=== PATIENT | female | born 1935 | race Caucasian/White ===

== ENCOUNTER → 2017-04-09 | Outpatient (CLI) | payer MEDICARE, BC ==
--- NOTE | 2017-04-09 16:46 | MR ---
EXAMINATION TYPE: MR angio head wo con DATE OF EXAM: 04/09/2017 8:16 AM COMPARISON: 09/25/2013 HISTORY: Headaches CONTRAST: None TECHNIQUE: Multiplanar multiecho imaging on a 3.0 Barbie magnet is performed through the [facility]ik of [facility]. 3-D [id number]-ghkxig imaging is performed. Source images are reviewed on the computer in the axi al plane. Reconstructed images rotating on the computer are reviewed. FINDINGS: The internal carotid arteries bifurcate normally into A1 and M1 segments. The A2 segments are normal. Distal middle cerebral artery branches are normal. The proximal A1 segments may have some mild undulation. Consider some vasculitis. Anterior communicating artery is patent. The right posterior communicating artery is absent. The left posterior communicating artery is absent. Vertebrobasilar arteries within the [id number] are normal. Posterior cerebral vasculature is norm al. No suspicious aneurysm or aneurysmal dilatation is evident. No obstructions are identified. No significant flow-limiting stenosis is evident. IMPRESSIONS: 1. There is some undulation along the first portions of the M1 segments bilaterally. Some vasculitis may be present. This better visualized on Three-D reconstructed images. This is a change from 2012. 2. Remaining portions of the distal middle cerebral artery branches as well as additional intracrania l vascular structures appears normal.
--- NOTE | 2017-04-09 16:50 | MR ---
EXAMINATION TYPE: MR brain wo/w con DATE OF EXAM: 04/09/2017 8:17 AM COMPARISON: 09/25/2013 HISTORY: Headaches CONTRAST: Performed utilizing 10 mL intravenous MultiHance gadolinium contrast. TECHNIQUE: Multiplanar, multiecho imaging on a 3.0 Barbie magnet is performed through the brain. Stud y is performed within 24 hours of arrival to the hospital. The craniovertebral junction is normal. The pituitary is normal. Diffusion-weighted imaging is performed. No abnormal hyperintensity is present to suggest an acute i ntracranial infarct or acute ischemic change. There are scattered punctate areas of hyperintensity on T2 and Inversion Recovery weighted sequences which are non-specific but can be related to microvascular ischemic changes. There is some increased signal adjacent to the left side brainstem cerebellar pontine angle inferior to the internal auditory canal. Series more intermediate signal on T2-weighted sequences. Abnormal enhancement is not identif ied. Finding was present previously and appears stable and may be artifactual Ventricles and sulci are appropriate for the patient age. No abnormal enhancement is evident. IMPRESSIONS: 1. Atrophy with periventricular white matter ischemic changes. 2. No acute intracranial process
== END | disposition home or self-care (01) ==
LOC: RADMRIMAIN 07:26
PROVIDERS: ATTEND Family Medicine
DX: G31.1 Senile degeneration of brain, not elsewhere classified (principal)
CPT/HCPCS: 70544; 70553; A9577

== ENCOUNTER 2017-05-07 09:53 | Day surgery (SDC) | payer MEDICARE, BC ==
[2017-05-03 16:07] VITALS: BMI 18.6
[~2017-05-07 09:53] MED LIST: LACTATED RINGERS 1,000 ML IV SCH
[2017-05-07] MEDS ORDERED: LIDOCAINE 1% 20 ML VIAL (10MG/ML) FOR IV START INTRADERMA ONE (10:00)
[2017-05-07 10:03] VITALS: RESP 16; TEMP 97.3
[2017-05-07 10:22] LABS: INR 1.1 (<1.1); Prothrombin Time 11.5 sec (9.0-12.0)
[2017-05-07] MEDS ORDERED: DEXAMETHASONE SOD PHOS (MDV) 100 MG/10 ML VIAL ONE (10:45)
[2017-05-07] MEDS ORDERED: MIDAZOLAM 2 MG/2 ML VIAL ONE (10:45)
[2017-05-07] MEDS ORDERED: IOHEXOL 180 MG/ML 1 ML ML ONE (10:45)
[2017-05-07] MEDS ORDERED: fentaNYL (PF) 50 MCG/ML 2 ML AMP ONE (10:45)
--- NOTE | 2017-05-07 11:09 | P.PCN ---
Date of Procedure: 05/07/17 Preoperative Diagnosis: Postoperative Diagnosis: Procedure(s) Performed: PREOP DIAGNOSIS: 1- Lumbar postlaminectomy syndrome POSTOP DIAGNOSIS:1- Lumbar postlaminectomy syndrome PROCEDURE: Caudal epidural steroid injection with epidurolysis and epidurogram under fluoroscopic guidance ANESTHESIA: Local with 1% lidocaine 3 ml ; IV sedation with Versed 1 mg and fentanyl 50 g EBL: Minimal. PROCEDURE INDICATION: The patient with post-laminectomy syndrome with low back pain and radiculopathy radiating down in both legs, here for a caudal epidural steroid injection with epidurolysis. PROCEDURE DESCRIPTION: The patient was seen and identified in the preoperative area. Risks, benefits, complications, and alternatives were discussed with the patient. The patient agreed to proceed with the procedure and signed the consent. IV was started, and vital signs were stable. Patient was taken to the OR and time out was completed. The patient was placed in the prone position on procedure table and a pillow was placed under the abdomen to reduce lumbar lordosis. The lumbosacral area was prepped and draped in the usual sterile fashion. Vital signs were closely monitored during the procedure. lateral view and the anterior-posterior plates of the sacrum were identified with infiltration of the area overlying the sacral hiatus with 1% lidocaine .A 17 gauge RK epidural needle was used to advance through the sacral hiatus into the caudal epidural space. Omnipaque 180 dye. 2cc was injected and the position of the needle was verified to be in the midline. A Racz catheter was introduced into the epidural space and was advanced towards the L5-S1 interspace under direct fluoroscopic guidance. Multiple passes were made with the catheter for lysis of epidural adhesions. Kenalog 80 mg with 3ml of preservative free Lidocaine 1% and 5 ml of preservative free normal saline was injected slowly. Additional spread was seen to L4 under fluoroscopy. The needle and the catheter were withdrawn intact. EPIDUROGRAM: Omnipaque 180 mg dye 2 ml was injected with spread of the dye into the caudal epidural space and with spread cutoff at L5 prior to epidurolysis. Post epidurolysis dye 2 ml was injected and spread was seen to L3- 4.There was further spread of the solution together with the dye above the L3 COMPLICATIONS: None. DISPOSITION / PLANS: The patient was placed in a supine position and transferred to the recovery area in a stable condition for observation and was discharged from the recovery room after meeting discharge criteria. Home discharge instructions given to the patient by the staff. The patient was reexamined prior to discharge. The patient will schedule a follow up in the clinic in 2-4 weeks. Implants: Indications for Procedure: Operative Findings: Description of Procedure:
--- NOTE | 2017-05-07 11:27 | FL ---
FLUOROSCOPY 6 seconds of fluoroscopy time were utilized during Pain Injection. 2 images document the procedure.
[2017-05-07 11:36] VITALS: BP 168/79; PULSE 72
[2017-05-07] MEDS ORDERED: IV FLUID CONTINUATION 1,000 ML IV ONE (11:48)
== END 2017-05-07 11:50 | disposition home or self-care (01) ==
LOC: ORPAIN 09:53
PROVIDERS: ATTEND Specialist
DX: M96.1 Postlaminectomy syndrome, not elsewhere classified (principal); M54.5 Low back pain; M54.16 Radiculopathy, lumbar region; I10 Essential (primary) hypertension; I48.91 Unspecified atrial fibrillation
CPT/HCPCS: 85610; 62264; J2250; Q9965; J3010; J1100

== ENCOUNTER 2017-07-04 07:43 | Inpatient (IN) | payer MEDICARE, BC ==
[2017-07-04] MEDS ORDERED: MECLIZINE 25 MG TAB PO STA (08:00)
[2017-07-04] MEDS ORDERED: DIAZEPAM 5 MG/ML 2 ML SYRINGE IVP STA (08:00)
[2017-07-04] MEDS ORDERED: SODIUM CHLORIDE 0.9% 500 ML IV ONE (08:03)
--- NOTE | 2017-07-04 08:03 | ED ---
General Adult HPI - General Chief complaint: Fall Stated complaint: Fall Time Seen by Provider: 07/04/17 07:45 Source: patient, EMS, RN notes reviewed Mode of arrival: EMS Limitations: no limitations - History of Present Illness Initial comments: This is an 81-year-old female who presents to the emergency department complaining of dizziness. Patient states she got up this morning felt real dizzy and fell back onto the bed did not injure herself. Patient states she then attempted again to get up and she was walking close to the wall lost her balance and fell backwards and hit her head on the corner of the wall. Patient states she has a mild headache now. Patient denies losing consciousness patient denies any bleeding. Patient states however she is on Coumadin. Patient denies any neck pain. Patient denies numbness or weakness. Patient denies any chest pain palpitations difficulty breathing or shortness of breath per patient denies any recent fever chills or cough. Patient denies any abdominal pain patient denies nausea vomiting or diarrhea. Patient denies any back pain. Patient denies any upper or lower extremity pain. Patient states she's had similar symptoms in the past but never to this degree. - Related Data Home Medications Medication Instructions Recorded Confirmed Levothyroxine Sodium [Levoxyl] 88 mcg PO DAILY 06/20/16 07/04/17 Warfarin [Coumadin] 5 mg PO SUMOTUTH 05/03/17 07/04/17 Losartan Potassium [Losartan 100 mg PO DAILY 07/04/17 07/04/17 Potassium] Metoprolol Tartrate [Lopressor] 25 mg PO BID 07/04/17 07/04/17 Primidone [Mysoline] 25 mg PO BID 07/04/17 07/04/17 Warfarin [Coumadin] 2.5 mg PO WESA 07/04/17 07/04/17 Allergies Allergy/AdvReac Type Severity Reaction Status Date / Time hydrocodone [From [place]] Allergy Confusion Verified 07/04/17 08:09 Review of Systems ROS Statement: Those systems with pertinent positive or pertinent negative responses have been documented in the HPI. ROS Other: All systems not noted in ROS Statement are negative. Past Medical History Past Medical History: Atrial Fibrillation, CVA/TIA, Hypertension, Myocardial Infarction ([place]), Thyroid Disorder Additional Past Medical History / Comment(s): frequent falls Last Myocardial Infarction Date:: 2011 History of Any Multi-Drug Resistant Organisms: None Reported Past Surgical History: Bladder Surgery, Heart Catheterization With Stent, Hysterectomy, Orthopedic Surgery Additional Past Surgical History / Comment(s): surgery X2 for trigeminal neuralgia Past Anesthesia/Blood Transfusion Reactions: Postoperative Nausea & Vomiting ( PONV) Additional Past Anesthesia/Blood Transfusion Reaction / Comment(s): patient has never received a blood transfusion Date of Last Stent Placement:: 2011 Past Psychological History: No Psychological Hx Reported Smoking Status: Never smoker Past Alcohol Use History: None Reported Past Drug Use History: None Reported - Past Family History Mother Family Medical History: Myocardial Infarction ([place]) Father Family Medical History: Congestive Heart Failure (CHF) Sister(s) Family Medical History: Coronary Artery Disease (CAD), Deep Vein Thrombosis (DVT ) Brother(s) Family Medical History: Congestive Heart Failure (CHF) General Exam - General Exam Comments Initial Comments: GENERAL: Patient is well-developed and well-nourished. Patient is nontoxic and well- hydrated and is in mild distress. ENT: Neck is soft and supple. No significant lymphadenopathy is noted. Oropharynx is clear. Moist mucous membranes. Neck has full range of motion without eliciting any pain. EYES: The sclera were anicteric and conjunctiva were pink and moist. Extraocular movements were intact and pupils were equal round and reactive to light. Eyelids were unremarkable. PULMONARY: Unlabored respirations. Good breath sounds bilaterally. No audible rales rhonchi or wheezing was noted. CARDIOVASCULAR: She is tachycardic at about 125 bpm and is irregular ABDOMEN: Soft and nontender with normal bowel sounds. No palpable organomegaly was noted. There is no palpable pulsatile mass. SKIN: Skin is clear with no lesions or rashes and otherwise unremarkable. NEUROLOGIC: Patient is alert and oriented x3. Cranial nerves II through XII are grossly intact. Motor and sensory are also intact. Normal speech, volume and content. Symmetrical smile. Finger to nose cerebellar testing is normal bilaterally MUSCULOSKELETAL: Normal extremities with adequate strength and full range of motion. No lower extremity swelling or edema. No calf tenderness. LYMPHATICS: No significant lymphadenopathy is noted PSYCHIATRIC: Normal psychiatric evaluation. Limitations: no limitations Course Vital Signs 07/04/17 07/04/17 07/04/17 07:45 08:40 09:00 Temperature 97.3 F L Pulse Rate 72 143 H 165 H Respiratory 20 20 20 Rate Blood Pressure 176/96 122/66 120/56 O2 Sat by Pulse 98 97 98 Oximetry Medical Decision Making - Medical Decision Making EKG shows atrial fibrillation with rapid ventricular response at 134 bpm QRS 74 QT interval 02 QTC is 450. Patient's EKG shows no ST segment elevation or depression. Patient's CT of the bin was normal. Patiens chest x-ray was normal. Patient may 2 different to stand and walk and she was unsuccessful the dizziness was too great. Spoke Dr. Barrios he agreed to admit the patient admitted the patient I wrote admitting orders. - Lab Data Result diagrams: 07/04/17 07:05 07/04/17 07:05 Lab Results 07/04/17 07/04/17 07/04/17 Range/Units 07:05 07:05 07:05 WBC 9.0 (3.8-10.6) k/uL RBC 4.48 (3.80-5.40) m/uL Hgb 13.5 (11.4-16.0) gm/dL Hct 39.7 (34.0-46.0) % MCV 88.6 (80.0-100.0) fL MCH 30.0 (25.0-35.0) pg MCHC 33.9 (31.0-37.0) g/dL RDW 13.8 (11.5-15.5) % Plt Count 385 (150-450) k/uL Neutrophils % 73 % Lymphocytes % 16 % Monocytes % 5 % Eosinophils % 4 % Basophils % 0 % Neutrophils # 6.6 (1.3-7.7) k/uL Lymphocytes # 1.5 (1.0-4.8) k/uL Monocytes # 0.5 (0-1.0) k/uL Eosinophils # 0.3 (0-0.7) k/uL Basophils # 0.0 (0-0.2) k/uL PT (9.0-12.0) sec INR (<1.2) APTT (22.0-30.0) sec Sodium 141 (137-145) mmol/L Potassium 4.2 (3.5-5.1) mmol/L Chloride 110 H (98-107) mmol/L Carbon Dioxide 20 L (22-30) mmol/L Anion Gap 11 mmol/L BUN 18 H (7-17) mg/dL Creatinine 0.74 (0.52-1.04) mg/dL Est GFR (MDRD) Af Amer >60 (>60 ml/min/1.73 sqM) Est GFR (MDRD) Non-Af >60 (>60 ml/min/1.73 sqM) Glucose 92 (74-99) mg/dL Calcium 9.2 (8.4-10.2) mg/dL Magnesium 1.7 (1.6-2.3) mg/dL Total Bilirubin 0.5 (0.2-1.3) mg/dL AST 23 (14-36) U/L ALT 29 (9-52) U/L Alkaline Phosphatase 116 (38-126) U/L Total Creatine Kinase 41 (30-135) U/L CK-MB (CK-2) 1.4 (0.0-2.4) ng/mL CK-MB (CK-2) Rel Index 3.4 Troponin I <0.012 (0.000-0.034) ng/mL Total Protein 6.3 (6.3-8.2) g/dL Albumin 3.5 (3.5-5.0) g/dL 07/04/17 Range/Units 07:05 WBC (3.8-10.6) k/uL RBC (3.80-5.40) m/uL Hgb (11.4-16.0) gm/dL Hct (34.0-46.0) % MCV (80.0-100.0) fL MCH (25.0-35.0) pg MCHC (31.0-37.0) g/dL RDW (11.5-15.5) % Plt Count (150-450) k/uL Neutrophils % % Lymphocytes % % Monocytes % % Eosinophils % % Basophils % % Neutrophils # (1.3-7.7) k/uL Lymphocytes # (1.0-4.8) k/uL Monocytes # (0-1.0) k/uL Eosinophils # (0-0.7) k/uL Basophils # (0-0.2) k/uL PT 33.1 H (9.0-12.0) sec INR 3.4 H (<1.2) APTT 36.9 H (22.0-30.0) sec Sodium (137-145) mmol/L Potassium (3.5-5.1) mmol/L Chloride (98-107) mmol/L Carbon Dioxide (22-30) mmol/L Anion Gap mmol/L BUN (7-17) mg/dL Creatinine (0.52-1.04) mg/dL Est GFR (MDRD) Af Amer (>60 ml/min/1.73 sqM) Est GFR (MDRD) Non-Af (>60 ml/min/1.73 sqM) Glucose (74-99) mg/dL Calcium (8.4-10.2) mg/dL Magnesium (1.6-2.3) mg/dL Total Bilirubin (0.2-1.3) mg/dL AST (14-36) U/L ALT (9-52) U/L Alkaline Phosphatase (38-126) U/L Total Creatine Kinase (30-135) U/L CK-MB (CK-2) (0.0-2.4) ng/mL CK-MB (CK-2) Rel Index Troponin I (0.000-0.034) ng/mL Total Protein (6.3-8.2) g/dL Albumin (3.5-5.0) g/dL Critical Care Time Critical Care Time: Yes Total Critical Care Time: 35 Disposition Clinical Impression: Vertigo, Atrial fibrillation with rapid ventricular response Disposition: ADMITTED IP TO THIS HOSP Referrals: Mariano Barrios MD [Primary Care Provider] - 1-2 days Time of Disposition: 10:09
[2017-07-04 08:24] LABS: Basophils % (A) 0 %; CH 29.4; CHCM 33.3; Eosinophils # (A) 0.3 k/uL (0-0.7); Eosinophils % (A) 4 %; HCT 39.7 % (34.0-46.0); HDW 2.75; HGB 13.5 gm/dL (11.4-16.0); Luc # (Auto) 0.14; Luc % (Auto) 2; Lymphocytes # (A) 1.5 k/uL (1.0-4.8); Lymphocytes % (A) 16 %; MCHC 33.9 g/dL (31.0-37.0); MCV 88.6 fL (80.0-100.0); Mean Platelet Volume 6.7; Monocytes # (A) 0.5 k/uL (0-1.0); Monocytes % (A) 5 %; Neutrophils # (A) 6.6 k/uL (1.3-7.7); Neutrophils % (A) 73 %; RBC 4.48 m/uL (3.80-5.40); RDW 13.8 % (11.5-15.5); WBC (Perox) 8.85
[2017-07-04 08:28] LABS: ALT 29 U/L (9-52); AST 23 U/L (14-36); Alkaline Phosphatase 116 U/L (38-126); Anion Gap 11 mmol/L; Blood Urea Nitrogen 18 mg/dL (7-17); Calcium 9.2 mg/dL (8.4-10.2); Carbon Dioxide 20 mmol/L (22-30); Chloride 110 mmol/L (98-107); Glucose 92 mg/dL (74-99); Magnesium 1.7 mg/dL (1.6-2.3); Non-African American GFR(MDRD) >60 (>60 ml/min/1.73 sqM); Potassium 4.2 mmol/L (3.5-5.1); Sodium 141 mmol/L (137-145); Total Bilirubin 0.5 mg/dL (0.2-1.3); Total Protein 6.3 g/dL (6.3-8.2)
[2017-07-04 08:29] LABS: INR 3.4 (<1.2); Partial Thromboplastin Time 36.9 sec (22.0-30.0); Prothrombin Time 33.1 sec (9.0-12.0)
--- NOTE | 2017-07-04 08:39 | CT ---
EXAMINATION TYPE: CT brain wo con DATE OF EXAM: 07/04/2017 COMPARISON: 11/01/2016 INDICATION: Fall, struck back of head DLP: 937.4 mGycm, Automated exposure control for dose reduction was used. CONTRAST: None CT of the brain is performed utilizing 3 mm thick sections through the posterior fossa and 3 mm thick sections through the remaining calvarium. Study is performed within 24 hours of arrival to the hosp ital. No abnormal hyperdensity is present to suggest an acute intracranial hemorrhage. No mass lesion is evident. No acute infarcts are evident. Periventricular white matter hypodensity is present compatible with mi crovascular ischemic change. Ventricles and sulci are appropriate for the patient age. Paranasal sinuses and mastoid air cells within the [id number] are clear. There has been a prior left lateral occipital craniotomy. No acute fractures are evident. IMPRESSIONS: 1. Atrophy with periventricular white matter ischemic changes. 2. Postsurgical occipital craniotomy changes. 3. No acute intracranial abnormality.
[2017-07-04 08:43] LABS: Creatine Kinase 41 U/L (30-135)
--- NOTE | 2017-07-04 08:46 | XR ---
EXAMINATION TYPE: XR chest 2V DATE OF EXAM: 07/04/2017 COMPARISON: 10/29/2016 HISTORY: Dizziness and unsteadiness. History of atrial fibrillation. Chest pain. TECHNIQUE: Frontal and lateral views of the chest are obtained. FINDINGS: There is no focal air space opacity, pleural effusion, or pneumothorax seen. The cardiac silhouette size is within normal limits. The osseous structures are intact. IMPRESSION: No acute cardiopulmonary process, unchanged from the prior examination.
[2017-07-04 08:54] LABS: Creatine Kinase MB 1.4 ng/mL (0.0-2.4); Troponin I <0.012 ng/mL (0.000-0.034)
[2017-07-04] MEDS ORDERED: KETOROLAC 60 MG/2 ML VIAL IVP STA (09:17)
[2017-07-04] MEDS ORDERED: METOPROLOL TARTRATE 25 MG TAB PO STA (09:31)
[2017-07-04] MEDS ORDERED: LOSARTAN 50 MG TAB PO STA (09:32)
[2017-07-04] MEDS ORDERED: LORazepam 2 MG/ML SYRINGE IV STA (10:05)
[2017-07-04] MEDS ORDERED: MECLIZINE 12.5 MG TAB PO PRN (10:09)
[2017-07-04] MEDS ORDERED: SODIUM CHLORIDE 0.9% 1,000 ML IV ONE (10:10)
[2017-07-04] MEDS ORDERED: DILTIAZEM 125 MG in SODIUM CHLORIDE 0.9% 100 ML IV ONE (10:30)
--- NOTE | 2017-07-04 11:13 | P.HPIM ---
History of Present Illness -year-old female presented to emergency room after fall at home states she had a near syncopal episode. Patient has history of atrial fibrillation and is found to be in the uncontrolled rate up to 134. The patient complains of headache neck pain and left upper arm pain. Patient does have a history of coronary artery disease status at the stent has a history of CVA hypertension and hypothyroidism Review of Systems Cardiovascular: Reports rapid heart beat Neurological: Reports balance difficulties, Reports headaches Past Medical History Past Medical History: Atrial Fibrillation, CVA/TIA, Hypertension, Myocardial Infarction ([place]), Thyroid Disorder Additional Past Medical History / Comment(s): frequent falls Last Myocardial Infarction Date:: 2011 History of Any Multi-Drug Resistant Organisms: None Reported Past Surgical History: Bladder Surgery, Heart Catheterization With Stent, Hysterectomy, Orthopedic Surgery Additional Past Surgical History / Comment(s): surgery X2 for trigeminal neuralgia Past Anesthesia/Blood Transfusion Reactions: Postoperative Nausea & Vomiting ( PONV) Additional Past Anesthesia/Blood Transfusion Reaction / Comment(s): patient has never received a blood transfusion Date of Last Stent Placement:: 2011 Past Psychological History: No Psychological Hx Reported Smoking Status: Never smoker Past Alcohol Use History: None Reported Past Drug Use History: None Reported - Past Family History Mother Family Medical History: Myocardial Infarction ([place]) Father Family Medical History: Congestive Heart Failure (CHF) Sister(s) Family Medical History: Coronary Artery Disease (CAD), Deep Vein Thrombosis (DVT ) Brother(s) Family Medical History: Congestive Heart Failure (CHF) Medications and Allergies Home Medications Medication Instructions Recorded Confirmed Type Levothyroxine Sodium [Levoxyl] 88 mcg PO DAILY 06/20/16 07/04/17 History Warfarin [Coumadin] 5 mg PO SUMOTUTH 05/03/17 07/04/17 History Losartan Potassium [Losartan 100 mg PO DAILY 07/04/17 07/04/17 History Potassium] Metoprolol Tartrate [Lopressor] 25 mg PO BID 07/04/17 07/04/17 History Primidone [Mysoline] 25 mg PO BID 07/04/17 07/04/17 History Warfarin [Coumadin] 2.5 mg PO WESA 07/04/17 07/04/17 History Allergies Allergy/AdvReac Type Severity Reaction Status Date / Time hydrocodone [From [place]] Allergy Confusion Verified 07/04/17 08:09 Physical Exam Vitals: Vital Signs Temp Pulse Resp BP Pulse Ox 07/04/17 10:37 98 F 126 H 20 95/65 97 07/04/17 10:00 117 H 18 95/65 97 07/04/17 09:00 165 H 20 120/56 98 07/04/17 08:40 143 H 20 122/66 97 07/04/17 07:45 97.3 F L 72 20 176/96 98 Intake and Output 07/03/17 07/04/17 07/04/17 22:59 06:59 14:59 Other: Weight 45.359 kg Patient Weight 07/05/17 06:59 Weight 45.359 kg - Constitutional General appearance: thin - EENT Eyes: PERRLA Ears: bilateral: normal - Neck Complains of med of cervical neck pain Neck: normal ROM - Respiratory Respiratory: bilateral: CTA - Cardiovascular Rhythm: irregularly irregular - Gastrointestinal General gastrointestinal: soft - Integumentary Integumentary: normal - Neurologic Neurologic: CNII-XII intact - Musculoskeletal Left upper arm pain Musculoskeletal: generalized weakness - Psychiatric Psychiatric: A&O x's 3, appropriate affect, intact judgment & insight Results CBC & Chem 7: 07/04/17 07:05 07/04/17 07:05 Labs: Abnormal Lab Results - Last 24 Hours (Table) 07/04/17 07/04/17 Range/Units 07:05 07:05 PT 33.1 H (9.0-12.0) sec INR 3.4 H (<1.2) APTT 36.9 H (22.0-30.0) sec Chloride 110 H (98-107) mmol/L Carbon Dioxide 20 L (22-30) mmol/L BUN 18 H (7-17) mg/dL Chest x-ray: report reviewed CT Scan - head: report reviewed Assessment and Plan Plan: Assessment Near-syncope with fall Headache neck pain left upper arm pain Atrial fibrillation with RVR History of MT with stents History of CVA History of hypertension Hypothyroidism Plan Cardiology consultation Neurology consultation Layla griffith
[2017-07-04 13:32] VITALS: BMI 18.3
--- NOTE | 2017-07-04 13:33 | XR ---
Left humerus HISTORY: Trauma and pain 2 views of the left humerus, no comparisons There is spurring at the glenohumeral joint. Bone mineralization is mildly reduced which may limit se nsitivity. Overlying artifact may obscure detail. Alignment is maintained. IMPRESSION: No acute fracture or dislocation. Limitations as described, follow-up as indicated.
--- NOTE | 2017-07-04 13:36 | XR ---
Cervical spine HISTORY: Trauma and pain 5 views of the cervical spine on 6 images Surgical screws are present within the mandible. Bone mineralization is reduced which may limit sensi tivity. There is multilevel facet arthropathy present. The level foraminal encroachment present bilat erally. There is multilevel spondylosis. Cervical vertebral bodies show preserved height. Loss of dis c height present at the intervertebral levels. The patient is edentulous. Odontoid view is limited. IMPRESSION: Degenerative disc disease, facet arthropathy, multilevel foraminal encroachment, osteopen ia. Postop changes. Limitations as described.
--- NOTE | 2017-07-04 14:50 | P.CRDCN ---
History of Present Illness Consult date: 07/04/17 History of present illness: This is a 81-year-old female with history of paroxysmal atrial fibrillation and also previous TIAs, was admitted through the emergency room with complaints of episode of dizziness when she was trying to get out of the bed followed by unsteadiness on her feet while trying to walk and then followed by a fall. She claims she did not lose consciousness. She was feeling heart rate going fast intermittently. She denied any chest pain or shortness of breath. She was in atrial fibrillation with fast ventricular response on admission to the emergency room. Apparently she converted back to sinus rhythm before she came to the floor. We'll don't have any conversion records of telemetry tracings or conversion EKG at this time. Her current rhythm seemed to be sinus with frequent APCs. She otherwise seemed to be stable. Patient never got her Cardizem IV. She was on metoprolol 25 mg by mouth twice a day at home. Patient did have a fall and small hemorrhage hematoma or ecchymosis in the back of her head that is being investigated. Coumadin is being held at this time. We'll continue to monitor her for any significant conversion pauses or bradycardia. We'll check her blood pressure for postural changes. Further recommendation will depend upon the clinical course. She may be high risk candidate for anticoagulation therapy because of her tendency to fall. At the same time patient is at risk of embolic events, because of previous TIAs. Past Medical History Past Medical History: Atrial Fibrillation, CVA/TIA, Hypertension, Myocardial Infarction (VT), Thyroid Disorder Additional Past Medical History / Comment(s): frequent falls Last Myocardial Infarction Date:: 2011 History of Any Multi-Drug Resistant Organisms: None Reported Past Surgical History: Bladder Surgery, Heart Catheterization With Stent, Hysterectomy, Orthopedic Surgery Additional Past Surgical History / Comment(s): surgery X2 for trigeminal neuralgia Past Anesthesia/Blood Transfusion Reactions: Postoperative Nausea & Vomiting ( PONV) Additional Past Anesthesia/Blood Transfusion Reaction / Comment(s): patient has never received a blood transfusion Date of Last Stent Placement:: 2011 Past Psychological History: No Psychological Hx Reported Smoking Status: Never smoker Past Alcohol Use History: None Reported Past Drug Use History: None Reported - Past Family History Mother Family Medical History: Myocardial Infarction (VT) Father Family Medical History: Congestive Heart Failure (CHF) Sister(s) Family Medical History: Coronary Artery Disease (CAD), Deep Vein Thrombosis (DVT ) Brother(s) Family Medical History: Congestive Heart Failure (CHF) Medications and Allergies Home Medications Medication Instructions Recorded Confirmed Type Levothyroxine Sodium [Levoxyl] 88 mcg PO DAILY 06/20/16 07/04/17 History Warfarin [Coumadin] 5 mg PO SUMOTUTH 05/03/17 07/04/17 History Losartan Potassium [Losartan 100 mg PO DAILY 07/04/17 07/04/17 History Potassium] Metoprolol Tartrate [Lopressor] 25 mg PO BID 07/04/17 07/04/17 History Primidone [Mysoline] 25 mg PO BID 07/04/17 07/04/17 History Warfarin [Coumadin] 2.5 mg PO WESA 07/04/17 07/04/17 History Allergies Allergy/AdvReac Type Severity Reaction Status Date / Time hydrocodone [From [place]] Allergy Confusion Verified 07/04/17 08:09 Physical Exam Vitals: Vital Signs Temp Pulse Pulse Resp BP BP Pulse Ox 07/04/17 11:20 98.1 F 63 16 97/52 98 07/04/17 10:37 98 F 126 H 20 95/65 97 07/04/17 10:00 117 H 18 95/65 97 07/04/17 09:00 165 H 20 120/56 98 07/04/17 08:40 143 H 20 122/66 97 07/04/17 07:45 97.3 F L 72 20 176/96 98 Intake and Output 07/03/17 07/04/17 07/04/17 22:59 06:59 14:59 Intake Total 118 Output Total 0 Balance 118 Intake: Oral 118 Output: Urine 0 Other: Weight 45.359 kg Patient Weight 07/05/17 06:59 Weight 45.359 kg GENERAL EXAM: Patient is alert and oriented and doesn't appear to be in any acute distress HEENT: Normocephalic. Normal reaction of pupils, equal size, normal range of extraocular motion. No erythema or exudates in the throat. NECK: No masses, no nuchal rigidity. CHEST: No chest wall deformity. LUNGS: Equal air entry with no crackles or wheeze. HEART: S1 and S2 normal with no audible mumurs or gallops. Regular rhythm, ABDOMEN: No hepatosplenomegaly, normal bowel sounds, no guarding or rigidity. SKIN: No rashes CENTRAL NERVOUS SYSTEM: No focal deficits. EXTREMITIES: No cyanosis, clubbing or edema. Results 07/04/17 07:05 07/04/17 07:05 Cardiac Enzymes 07/04/17 07/04/17 Range/Units 07:05 07:05 AST 23 (14-36) U/L CK-MB (CK-2) 1.4 (0.0-2.4) ng/mL Troponin I <0.012 (0.000-0.034) ng/mL Coagulation 07/04/17 Range/Units 07:05 PT 33.1 H (9.0-12.0) sec APTT 36.9 H (22.0-30.0) sec CBC 07/04/17 Range/Units 07:05 WBC 9.0 (3.8-10.6) k/uL RBC 4.48 (3.80-5.40) m/uL Hgb 13.5 (11.4-16.0) gm/dL Hct 39.7 (34.0-46.0) % Plt Count 385 (150-450) k/uL Comprehensive Metabolic Panel 07/04/17 Range/Units 07:05 Sodium 141 (137-145) mmol/L Potassium 4.2 (3.5-5.1) mmol/L Chloride 110 H (98-107) mmol/L Carbon Dioxide 20 L (22-30) mmol/L BUN 18 H (7-17) mg/dL Creatinine 0.74 (0.52-1.04) mg/dL Glucose 92 (74-99) mg/dL Calcium 9.2 (8.4-10.2) mg/dL AST 23 (14-36) U/L ALT 29 (9-52) U/L Alkaline Phosphatase 116 (38-126) U/L Total Protein 6.3 (6.3-8.2) g/dL Albumin 3.5 (3.5-5.0) g/dL Current Medications Generic Name Dose Route Start Last Admin Trade Name Freq PRN Reason Stop Dose Admin Sodium Chloride 1,000 mls @ 75 mls/hr 07/04/17 10:10 07/04/17 10:15 Saline 0.9% IV 07/04/17 23:29 75 mls/hr .[id number] ONE Administration Diltiazem HCl 125 mg/ Sodium 125 mls @ 5 mls/hr 07/04/17 10:30 07/04/17 10:58 Chloride IV 07/05/17 10:29 Not Given .Q24H ONE 5 MG/HR Meclizine HCl 12.5 mg 07/04/17 10:09 Antivert PO QID PRN Vertigo Intake and Output 07/03/17 07/04/17 07/04/17 22:59 06:59 14:59 Intake Total 118 Output Total 0 Balance 118 Intake: Oral 118 Output: Urine 0 Other: Weight 45.359 kg Patient Weight 07/05/17 06:59 Weight 45.359 kg 07/04/17 07:05 07/04/17 07:05 EKG Interpretations (text) Sinus rhythm with APCs. Initial EKG showed atrial fibrillation with RVR Assessment and Plan (1) History of TIA (transient ischemic attack) Status: Acute (2) Atrial fibrillation with rapid ventricular response Status: Acute (3) Vertigo Status: Acute (4) Dizziness Status: Acute Plan: We'll continue to monitor her for any significant bradyarrhythmias. We'll check her blood pressure apparently postural changes. We'll resume her metoprolol at this time. We'll hold off on anticoagulation therapy until further evaluation.
--- NOTE | 2017-07-04 19:57 | P.CNNES ---
History of Present Illness Consult date: 07/04/17 Requesting physician: Mariano Barrios Reason for Consult: Dizziness Chief complaint: Dizziness History of Present Illness: The patient is a pleasant 81-year-old female who is being evaluated by the neurology service per the request of Dr. Enedelia Barrios for dizziness. The patient was brought into [facility] emergency room after she had a near syncopal episode and a fall at home. The patient states that she did not lose consciousness. She does have a history of atrial fibrillation and in the emergency room, she was found to be having atrial fibrillation with fast ventricular response. She was given Cardizem IV and she did convert back to sinus rhythm. During the dizziness episodes, she denied having any headache, numbness, or weakness that was lateralizing. A computed tomography scan of the brain was done which showed no acute intracranial abnormalities. There was evidence of postsurgical changes, small vessel ischemic disease, and generalized atrophy. The patient states that approximately 10 years ago, she had an intracranial surgery for severe trigeminal neuralgia. Her symptoms are stable at this time. Her CBC, cardiac enzymes, and competence of metabolic profile were normal. The patient is on Coumadin for her atrial fibrillation and her INR was supratherapeutic at 3.4 on admission. Cardiology is following the patient. At the time of my evaluation, she is laying in her bed and appears to be in no acute distress. She denies any new neurological complaints. Review of Systems All systems: negative Constitutional: Denies chills, Denies fever Eyes: denies blurred vision, denies pain Ears, nose, mouth and throat: Denies headache, Denies sore throat Cardiovascular: Reports as per HPI, Reports high blood pressure, Reports irregular heart beat, Reports lightheadedness, Reports palpitations, Reports rapid heart beat, Denies chest pain, Denies shortness of breath Respiratory: Denies cough Gastrointestinal: Denies abdominal pain, Denies diarrhea, Denies nausea, Denies vomiting Genitourinary: Denies dysuria, Denies hematuria Musculoskeletal: Denies myalgias Integumentary: Denies pruritus, Denies rash Neurological: Denies numbness, Denies weakness Psychiatric: Denies anxiety, Denies depression Endocrine: Denies fatigue, Denies weight change Past Medical History Past Medical History: Atrial Fibrillation, CVA/TIA, Hypertension, Myocardial Infarction ([place]), Thyroid Disorder Additional Past Medical History / Comment(s): frequent falls Last Myocardial Infarction Date:: 2011 History of Any Multi-Drug Resistant Organisms: None Reported Past Surgical History: Bladder Surgery, Heart Catheterization With Stent, Hysterectomy, Orthopedic Surgery Additional Past Surgical History / Comment(s): surgery X2 for trigeminal neuralgia Past Anesthesia/Blood Transfusion Reactions: Postoperative Nausea & Vomiting ( PONV) Additional Past Anesthesia/Blood Transfusion Reaction / Comment(s): patient has never received a blood transfusion Date of Last Stent Placement:: 2011 Past Psychological History: No Psychological Hx Reported Smoking Status: Never smoker Past Alcohol Use History: None Reported Past Drug Use History: None Reported - Past Family History Mother Family Medical History: Myocardial Infarction (ND) Father Family Medical History: Congestive Heart Failure (CHF) Sister(s) Family Medical History: Coronary Artery Disease (CAD), Deep Vein Thrombosis (DVT ) Brother(s) Family Medical History: Congestive Heart Failure (CHF) Medications and Allergies Home Medications Medication Instructions Recorded Confirmed Type Levothyroxine Sodium [Levoxyl] 88 mcg PO DAILY 06/20/16 07/04/17 History Warfarin [Coumadin] 5 mg PO SUMOTUTH 05/03/17 07/04/17 History Losartan Potassium [Losartan 100 mg PO DAILY 07/04/17 07/04/17 History Potassium] Metoprolol Tartrate [Lopressor] 25 mg PO BID 07/04/17 07/04/17 History Primidone [Mysoline] 25 mg PO BID 07/04/17 07/04/17 History Warfarin [Coumadin] 2.5 mg PO WESA 07/04/17 07/04/17 History Allergies Allergy/AdvReac Type Severity Reaction Status Date / Time hydrocodone [From [place]] Allergy Confusion Verified 07/04/17 08:09 Physical Examination - Vital Signs Vital Signs: Vital Signs Temp Pulse Pulse Resp BP BP Pulse Ox 07/04/17 16:00 67 16 111/56 97 07/04/17 12:00 97.8 F 97 16 102/51 98 07/04/17 11:20 98.1 F 63 16 97/52 98 07/04/17 10:37 98 F 126 H 20 95/65 97 07/04/17 10:00 117 H 18 95/65 97 07/04/17 09:00 165 H 20 120/56 98 07/04/17 08:40 143 H 20 122/66 97 07/04/17 07:45 97.3 F L 72 20 176/96 98 Intake and Output 07/04/17 07/04/17 07/04/17 06:59 14:59 22:59 Intake Total 118 236 Output Total 0 Balance 118 236 Intake: Oral 118 236 Output: Urine 0 Other: Weight 45.359 kg Patient Weight 07/05/17 06:59 Weight 45.359 kg - Constitutional General appearance: cooperative, thin - EENT EENT: ATNC, PERRL - Cardiovascular Cardiovascular: other (Irregularly irregular rhythm with a normal rate.) Extremities: no peripheral edema bilaterally - Gastrointestinal Gastrointestinal: soft, non-tender - Integumentary Integumentary: normal - Neurologic The patient is alert aware and oriented 3. Speech and language are normal. Strength is 4/5 in all 4 extremities. No lateralizing weakness is seen. Sensory exam was normal to light touch in all 4 extremities. No facial asymmetry is seen on cranial nerve testing. No pronator drift is seen. Mild postural tremors are seen in bilateral upper extremities. - Psychiatric Psychiatric: mood/affect appropriate, cooperative Results - Laboratory Findings CBC and BMP: 07/04/17 07:05 07/04/17 07:05 Abnormal Lab Findings: Abnormal Labs 07/04/17 07/04/17 07:05 07:05 PT 33.1 H INR 3.4 H APTT 36.9 H Chloride 110 H Carbon Dioxide 20 L BUN 18 H Assessment and Plan (1) Atrial fibrillation with rapid ventricular response Status: Acute (2) Dizziness Status: Acute (3) History of TIA (transient ischemic attack) Status: Chronic Plan: The patient's neurological examination showed no lateralizing findings. Her dizziness has resolved at this time. I do believe the patient's dizziness was due to cardiovascular etiology. I did review her workup which showed no acute abnormalities as well. Her INR is supratherapeutic. Cardiology is following the patient. An EEG has been ordered. I will continue to follow with you. Further recommendations to follow. Thank you Dr. Barrios for allowing me to participate in the care of your patient. If you have any questions, please feel free to contact me. Time with Patient: Less than 30
[2017-07-05 06:56] LABS: INR 2.7 (<1.2); Prothrombin Time 26.3 sec (9.0-12.0)
--- NOTE | 2017-07-05 11:50 | ECHOF ---
Referral Reason:Chest pain and cardiomyopathy MEASUREMENTS -------- HEIGHT: 157.5 cm WEIGHT: 45.4 kg BP: 97/52 RVIDd: 2.7 cm (< 3.3) IVSd: 1.2 cm (0.6 - 1.1) LVIDd: 3.4 cm (3.9 - 5.3) LVPWd: 1.3 cm (0.6 - 1.1) IVSs: 1.4 cm LVIDs: 2.0 cm LVPWs: 1.5 cm LA Diam: 3.1 cm (2.7 - 3.8) LAESV Index (A-L): 30.27 ml/m Ao Diam: 2.9 cm (2.0 - 3.7) AV Cusp: 1.9 cm (1.5 - 2.6) MV EXCURSION: 14.382 mm (> 18.000) MV EF SLOPE: 29 mm/s (70 - 150) EPSS: 0.3 cm AR PHT: 647 ms RAP: 5.00 mmHg RVSP: 23.13 mmHg FINDINGS -------- This was a technically good study. The left ventricular size is normal. There is mild concentric left ventricular hypertrophy. Overall left ventricular systolic function is normal with, an EF between 60 - 65 %. The right ventricle is normal in size. LA is midly dilated 29-33ml/m2. The right atrium is normal in size. Aortic valve is trileaflet and is mildly thickened. There is moderate aortic regurgitation. Mild mitral annular calcification present. Mild tricuspid regurgitation present. Right ventricular systolic pressure is normal at < 35 mmHg. Trace/mild (physiologic) pulmonic regurgitation. The aortic root size is normal. Normal inferior vena cava with normal inspiratory collapse consistent with estimated right atrial pressure of 5 mmHg. There is no pericardial effusion. CONCLUSIONS -------- 1. This was a technically good study. 2. Mild mitral annular calcification present. 3. Mild tricuspid regurgitation present. 4. Right ventricular systolic pressure is normal at < 35 mmHg. 5. Trace/mild (physiologic) pulmonic regurgitation. 6. The aortic root size is normal. 7. Normal inferior vena cava with normal inspiratory collapse consistent with estimated right atrial pressure of 5 mmHg. 8. There is no pericardial effusion. 9. The left ventricular size is normal. 10. There is mild concentric left ventricular hypertrophy. 11. Overall left ventricular systolic function is normal with, an EF between 60 - 65 %. 12. The right ventricle is normal in size. 13. LA is midly dilated 29-33ml/m2. 14. The right atrium is normal in size. 15. Aortic valve is trileaflet and is mildly thickened. 16. There is moderate aortic regurgitation. [employer] SANITARIAN: Bridgette Mathews RDCS
[2017-07-05] MEDS ORDERED: LOSARTAN 50 MG TAB PO SCH (13:00)
[2017-07-05] MEDS: METOPROLOL TARTRATE 25 MG TAB PO SCH ×2 (14:05→20:20)
[2017-07-05] MEDS: LOSARTAN 50 MG TAB PO SCH (14:05)
--- NOTE | 2017-07-05 14:10 | EEG ---
REASON FOR TESTING: Dizziness. DESCRIPTION OF THE PROCEDURE: This EEG was performed using a 21 channel digital electroencephalograph, following international 10-20 system. DESCRIPTION OF THE RECORDING : From the beginning of the tracing, with the patient's eyes closed, the background rhythm was mostly consisting of 8-9 Hz alpha frequency in the posterior occipital leads. No obvious asymmetry is seen. Photic stimulation was performed with a good driving response seen. No pathological waves were elicited . Muscle artifacts are seen. Hyperventilation was not performed. The patient remains awake throughout the tracing. No epileptiform discharges were seen. Her EKG lead showed a regular rate and rhythm. INTERPRETATION: This awake EEG can be considered within normal limits. There was no asymmetry seen. No epileptiform discharges were noticed. The absence of epileptiform discharges does not rule out the diagnosis of epilepsy. Therefore, clinical correlation is recommended. MTDD
--- NOTE | 2017-07-05 16:03 | P.PN ---
Subjective This is a 81-year-old female with history of paroxysmal atrial fibrillation and also previous TIAs, was admitted through the emergency room with complaints of episode of dizziness when she was trying to get out of the bed followed by unsteadiness on her feet while trying to walk and then followed by a fall. She claims she did not lose consciousness. She was feeling heart rate going fast intermittently. She denied any chest pain or shortness of breath. She was in atrial fibrillation with fast ventricular response on admission to the emergency room. Apparently she converted back to sinus rhythm before she came to the floor. We'll don't have any conversion records of telemetry tracings or conversion EKG at this time. Her current rhythm seemed to be sinus with frequent APCs. She otherwise seemed to be stable. Patient never got her Cardizem IV. She was on metoprolol 25 mg by mouth twice a day at home. Patient did have a fall and small hemorrhage hematoma or ecchymosis in the back of her head that is being investigated. Coumadin is being held at this time. We'll continue to monitor her for any significant conversion pauses or bradycardia. We'll check her blood pressure for postural changes. Further recommendation will depend upon the clinical course. She may be high risk candidate for anticoagulation therapy because of her tendency to fall. At the same time patient is at risk of embolic events, because of previous TIAs. Patient's blood pressure is quite high today in the 170s to 200 systolic. Her home medications have not been resumed as of yet. There've been no rhythm strips that have confirmed postconversion pauses. Objective - Vital Signs Vital signs: Vital Signs Temp 97.0 F L 07/05/17 04:00 Pulse 64 07/05/17 04:00 Resp 18 07/05/17 08:00 BP 179/80 07/05/17 08:00 Pulse Ox 98 07/05/17 04:00 Intake & Output 07/04/17 07/05/17 07/05/17 18:59 06:59 18:59 Intake Total 354 1200 Output Total 0 Balance 354 1200 Weight 45.359 kg 47.5 kg Intake: IV 600 Sodium Chloride 0.9% 1, 600 000 ml @ 75 mls/hr IV . [id number] ONE Rx#:[id number] Oral 354 600 Output: Urine 0 Other: # Voids 1 - Exam PHYSICAL EXAMINATION: HEENT: Head is atraumatic, normocephalic. Pupils equal, round. Neck is supple. There is no elevated jugular venous pressure. HEART EXAMINATION: Heart sounds regular, S1 and S2 normal. No murmur or gallop heard. CHEST EXAMINATION: Lungs are clear to auscultation and precussion. No chest wall tenderness is noted on palpation or with deep breathing. ABDOMEN: Soft, nontender. Bowel sounds are heard. No organomegaly noted. EXTREMITIES: 2+ peripheral pulses with no evidence of peripheral edema and no calf tenderness noted. NEUROLOGIC patient is awake, alert and oriented x3. . - Labs CBC & Chem 7: 07/04/17 07:05 07/04/17 07:05 Labs: Abnormal Lab Results - Last 24 Hours (Table) 07/05/17 Range/Units 06:09 PT 26.3 H (9.0-12.0) sec INR 2.7 H (<1.2) Assessment and Plan Plan: Assessment and plan #1 history of TIA #2 atrial fibrillation with rapid ventricular response, paroxysmal #3 vertigo #4 dizziness #5 hypertension From cardiology , we have not witnessed any significant bradycardia arrhythmias nor have we found evidence of postural changes. Resume all tartrate 25 mg by mouth twice a day as well as losartan 50 mg by mouth daily. We'll keep the patient overnight to assess blood pressure control. Further recommendations to follow [employer]ER [employer] note has been reviewed, I agree with a documented findings and plan of care. Patient was seen and examined.
--- NOTE | 2017-07-05 16:17 | P.PN ---
Subjective Principal diagnosis: Dizziness This pleasant 81-year-old female continues to be evaluated by the neurology service for dizziness. She presented to the [facility] emergency room with a presyncopal episode. She has a history of atrial fibrillation. Cardiology is following. She was given Cardizem IV with conversion back to sinus rhythm. CT of the brain showed no acute intracranial abnormalities. Her EEG was normal. Her symptoms have improved. She has no new neurological complaints. Objective - Vital Signs Vital signs: Vital Signs Temp 97.0 F L 07/05/17 04:00 Pulse 64 07/05/17 04:00 Resp 18 07/05/17 08:00 BP 179/80 07/05/17 08:00 Pulse Ox 98 07/05/17 04:00 Intake & Output 07/04/17 07/05/17 07/05/17 18:59 06:59 18:59 Intake Total 354 1200 Output Total 0 Balance 354 1200 Weight 45.359 kg 47.5 kg Intake: IV 600 Sodium Chloride 0.9% 1, 600 000 ml @ 75 mls/hr IV . [id number] ONE Rx#:[id number] Oral 354 600 Output: Urine 0 Other: # Voids 1 - Constitutional General appearance: Present: cooperative, no acute distress - EENT Eyes: Present: EOMI, PERRLA. Absent: abnormal pupil, ptosis ENT: Present: hearing grossly normal - Neck Neck: Present: normal ROM. Absent: rigidity - Respiratory Respiratory: negative: prolonged expiration, prolonged inspiration - Cardiovascular Rhythm: regular - Gastrointestinal General gastrointestinal: Absent: distended, tenderness - Neurologic Neurologic Comment(s): She is alert awake and oriented 3. Speech-language are normal. There is no lateralizing weakness. There is no sensory deficit in any extremity. There is no facial asymmetry. - Labs CBC & Chem 7: 07/04/17 07:05 07/04/17 07:05 Labs: Abnormal Lab Results - Last 24 Hours (Table) 07/05/17 Range/Units 06:09 PT 26.3 H (9.0-12.0) sec INR 2.7 H (<1.2) Assessment and Plan (1) Atrial fibrillation with rapid ventricular response Status: Chronic (2) Dizziness Status: Chronic (3) History of TIA (transient ischemic attack) Status: Chronic Plan: There is been no change in her neurological exam. There is no lateralizing findings. It is likely that her dizziness is due to a cardiovascular etiology. We can follow her up in outpatient setting to investigate in the central and or peripheral causes for any further dizziness or vertigo. Otherwise she is cleared from a neurological standpoint. I have performed a history and physical on the above patient. I have reviewed the above note, and agree.
--- NOTE | 2017-07-05 16:27 | P.DS ---
Providers Date of admission: 07/04/17 10:10 Attending physician: Mariano Barrios Consults: 07/04/17 11:01 Consult Physician Urgent Consulting Provider: Loc Cano Consult Reason/Comments: afib RVR Do you want consulting provider notified?: Yes 07/04/17 11:04 Consult Physician Urgent Consulting Provider: Dhara Boyce Consult Reason/Comments: fall near syncope Do you want consulting provider notified?: Yes Primary care physician: Mariano Barrios Hospital Course: 79-year-old female was admitted for near syncopal episode found to be in atrial fibrillation with rapid ventricular rate which is well controlled at this time on 25 twice a day of metoprolol. Patient was bit hypotensive as well because of which her losartan dose is being decreased. Low blood pressure may have contributed to her lightheadedness as well. Patient Coumadin dosing is being changed because of high normal INR for atrial fibrillation. Patient's INR need to be tested in couple days. Patient was evaluated by physical therapy and she will not require any subacute rehabilitation. Patient was having vertiginous symptoms on admission along with lightheadedness because of which neurology evaluated the patient and all the neurological workup is negative. Patient is being discharged on meclizine for few days. PHYSICAL EXAMINATION: GENERAL: The patient is alert and oriented x3, not in any acute distress. Well developed, well nourished. HEENT: Pupils are round and equally reacting to light. EOMI. No scleral icterus. No conjunctival pallor. Normocephalic, atraumatic. No pharyngeal erythema. No thyromegaly. CARDIOVASCULAR: S1 and S2 present. No murmurs, rubs, or gallops. PULMONARY: Chest is clear to auscultation, no wheezing or crackles. ABDOMEN: Soft, nontender, nondistended, normoactive bowel sounds. No palpable organomegaly. MUSCULOSKELETAL: No joint swelling or deformity. EXTREMITIES: No cyanosis, clubbing, or pedal edema. NEUROLOGICAL: Gross neurological examination did not reveal any focal deficits. SKIN: No rashes. Near-syncope with fall Headache neck pain left upper arm pain, secondary to cervical degenerative disease Atrial fibrillation with RVR, patient is sinus rhythm at this time and controlled heart rate now. History of MS with stents History of CVA History of hypertension Hypothyroidism Plan - Discharge Summary New Discharge Prescriptions: New Losartan [Cozaar] 50 mg PO DAILY tab Meclizine [Antivert] 12.5 mg PO QID PRN #30 tab PRN Reason: Vertigo Continue Levothyroxine Sodium [Levoxyl] 88 mcg PO DAILY Metoprolol Tartrate [Lopressor] 25 mg PO BID Primidone [Mysoline] 25 mg PO BID Changed Warfarin [Coumadin] 2.5 mg PO DAILY #0 Discontinued Warfarin [Coumadin] 5 mg PO SUMOTUTH Losartan Potassium [Losartan Potassium] 100 mg PO DAILY Discharge Medication List Levothyroxine Sodium [Levoxyl] 88 mcg PO DAILY 06/20/16 [History] Metoprolol Tartrate [Lopressor] 25 mg PO BID 07/04/17 [History] Primidone [Mysoline] 25 mg PO BID 07/04/17 [History] Losartan [Cozaar] 50 mg PO DAILY tab 07/05/17 [Rx] Meclizine [Antivert] 12.5 mg PO QID PRN #30 tab 07/05/17 [Rx] Warfarin [Coumadin] 2.5 mg PO DAILY #0 07/05/17 [Rx] Follow up Appointment(s)/Referral(s): Mariano Barrios MD [Primary Care Provider] - 07/09/17 10:40 am Dhara Boyce MD [STAFF PHYSICIAN] - 2 Weeks Ambulatory/Diagnostic Orders: Prothrombin Time INR [LAB.AMB] Time Frame: 3 Days, Location: Determined By Patient Discharge Disposition: HOME SELF-CARE
[2017-07-06] MEDS: LOSARTAN 50 MG TAB PO SCH (08:10)
[2017-07-06] MEDS: METOPROLOL TARTRATE 25 MG TAB PO SCH (08:10)
--- NOTE | 2017-07-06 10:18 | P.PN ---
Subjective Principal diagnosis: A. fib This is a pleasant 81-year-old female patient with a past medical history significant for CAD and prior LAD stenting, paroxysmal atrial for patient, and hypertension, was admitted to the hospital with heart racing and fluttering and was diagnosed was A. fib with RVR. Subsequently the patient converted to normal sinus mechanism and she has been maintaining sinus rhythm with sinus bradycardia. On follow-up with her today, she denies having any chest pain or discomfort or difficulty breathing or feeling of heart racing or fluttering. Hemodynamically the blood pressure has been well-controlled and the patient has been maintaining sinus rhythm. Objective - Vital Signs Vital signs: Vital Signs Temp 96.8 F L 07/06/17 04:00 Pulse 56 L 07/06/17 04:00 Resp 18 07/06/17 04:00 BP 146/66 07/06/17 04:00 Pulse Ox 97 07/06/17 04:00 Intake & Output 07/05/17 07/06/17 07/06/17 18:59 06:59 18:59 Weight 46.8 kg Other: # Voids 2 1 - Constitutional General appearance: Present: no acute distress - Respiratory Respiratory: bilateral: CTA - Cardiovascular Rhythm: regular Heart sounds: normal: S1, S2 Abnormal Heart Sounds: Present: systolic murmur - Labs CBC & Chem 7: 07/04/17 07:05 07/04/17 07:05 Assessment and Plan Plan: Assessment and plan This is a pleasant 81-year-old female patient with CAD, hypertension, and paroxysmal A. fib was admitted to the hospital A. fib with RVR converted to normal sinus mechanism. From a perivascular standpoint of view, she can be discharged home.
[2017-07-06 11:55] VITALS: RESP 16
[2017-07-06 12:25] VITALS: BP 169/77; PULSE 56; TEMP 96.7
[2017-07-06 14:20] LABS: Prothrombin Time 19.4 sec (9.0-12.0)
--- NOTE | 2017-07-06 15:12 | P.DS ---
Providers Date of admission: 07/04/17 10:10 Attending physician: Mariano Barrios Consults: 07/04/17 11:01 Consult Physician Urgent Consulting Provider: Loc Cano Consult Reason/Comments: afib RVR Do you want consulting provider notified?: Yes 07/04/17 11:04 Consult Physician Urgent Consulting Provider: Dhara Boyce Consult Reason/Comments: fall near syncope Do you want consulting provider notified?: Yes Primary care physician: Mariano Barrios Hospital Course: Please refer to my discharge summary from yesterday for further details as patient was not discharged yesterday, cardiology recommended 1 more day of monitoring her blood pressure. Her blood pressure is doing pretty well today. Since patient's ended up staying here I did examine the patient. PHYSICAL EXAMINATION: GENERAL: The patient is alert and oriented x3, not in any acute distress. Well developed, well nourished. HEENT: Pupils are round and equally reacting to light. EOMI. No scleral icterus. No conjunctival pallor. Normocephalic, atraumatic. No pharyngeal erythema. No thyromegaly. CARDIOVASCULAR: S1 and S2 present. No murmurs, rubs, or gallops. PULMONARY: Chest is clear to auscultation, no wheezing or crackles. ABDOMEN: Soft, nontender, nondistended, normoactive bowel sounds. No palpable organomegaly. MUSCULOSKELETAL: No joint swelling or deformity. EXTREMITIES: No cyanosis, clubbing, or pedal edema. NEUROLOGICAL: Gross neurological examination did not reveal any focal deficits. SKIN: No rashes. Plan - Discharge Summary New Discharge Prescriptions: New Losartan [Cozaar] 50 mg PO DAILY tab Meclizine [Antivert] 12.5 mg PO QID PRN #30 tab PRN Reason: Vertigo Continue Levothyroxine Sodium [Levoxyl] 88 mcg PO DAILY Metoprolol Tartrate [Lopressor] 25 mg PO BID Primidone [Mysoline] 25 mg PO BID Changed Warfarin [Coumadin] 2.5 mg PO DAILY #0 Discontinued Warfarin [Coumadin] 5 mg PO SUMOTUTH Losartan Potassium [Losartan Potassium] 100 mg PO DAILY Discharge Medication List Levothyroxine Sodium [Levoxyl] 88 mcg PO DAILY 06/20/16 [History] Metoprolol Tartrate [Lopressor] 25 mg PO BID 07/04/17 [History] Primidone [Mysoline] 25 mg PO BID 07/04/17 [History] Losartan [Cozaar] 50 mg PO DAILY tab 07/05/17 [Rx] Meclizine [Antivert] 12.5 mg PO QID PRN #30 tab 07/05/17 [Rx] Warfarin [Coumadin] 2.5 mg PO DAILY #0 07/05/17 [Rx] Follow up Appointment(s)/Referral(s): Mariano Barrios MD [Primary Care Provider] - 07/09/17 10:40 am Tacos Foreman MD [STAFF PHYSICIAN] - 2 Weeks Dhara Boyce MD [STAFF PHYSICIAN] - 2 Weeks Ambulatory/Diagnostic Orders: Prothrombin Time INR [LAB.AMB] Time Frame: 3 Days, Location: Determined By Patient Patient Instructions/Handouts: Vertigo (DC) Discharge Disposition: HOME SELF-CARE
[2017-07-06] MEDS ORDERED: WARFARIN 3 MG TAB PO ONE (18:00)
== END 2017-07-06 14:53 | disposition home or self-care (01) | DRG 310 ==
LOC: EC 07:43 → 6SEL 10:10
PROVIDERS: ADMIT Family Medicine; ATTEND Family Medicine
DX: I48.0 Paroxysmal atrial fibrillation (principal); I10 Essential (primary) hypertension; I25.10 Atherosclerotic heart disease of native coronary artery without angina pectoris; M50.30 Other cervical disc degeneration, unspecified cervical region; E03.9 Hypothyroidism, unspecified; R29.6 Repeated falls; R79.1 Abnormal coagulation profile; I25.2 Old myocardial infarction; Z86.73 Personal history of transient ischemic attack (TIA), and cerebral infarction without residual deficits; Z79.01 Long term (current) use of anticoagulants; Z79.899 Other long term (current) drug therapy; Z95.5 Presence of coronary angioplasty implant and graft; Z90.710 Acquired absence of both cervix and uterus; Z82.49 Family history of ischemic heart disease and other diseases of the circulatory system; Z88.5 Allergy status to narcotic agent; W01.0XXA Fall on same level from slipping, tripping and stumbling without subsequent striking against object, initial encounter; Y92.009 Unspecified place in unspecified non-institutional (private) residence as the place of occurrence of the external cause
CPT/HCPCS: 36415; 70450; 71020; 72050; 80053; 82550; 82553; 83735; 84443; 84484; 85025; 85610; 85652; 85730; 86140; 93005; 93306; 95819; 96361; 96374; 96375; 99291

== ENCOUNTER → 2017-07-08 | Outpatient (CLI) | payer MEDICARE, BC ==
[2017-07-08 10:36] LABS: Rheumatoid Factor, Qnt 25 IU/mL (<12)
[2017-07-08 17:53] LABS: ANA w/Reflex to Titer NEGATIVE (NEGATIVE)
[2017-07-09 14:05] LABS: C-ANCA <1:20 Titer (<1:20); P-ANCA <1:20 Titer (<1:20)
== END | disposition home or self-care (01) ==
LOC: LABWHC1 09:41
PROVIDERS: ATTEND Psychiatry & Neurology Neurology
DX: G44.209 Tension-type headache, unspecified, not intractable (principal)
CPT/HCPCS: 36415; 85613; 85730; 85732; 86038; 86147; 86160; 86225; 86255; 86431

== ENCOUNTER 2017-12-03 13:18 | Emergency (ER) | payer MEDICARE, BC ==
[2017-12-03] MEDS ORDERED: hydrALAZINE HCL 20 MG/ML 1 ML VIAL IVP STA (15:55)
[2017-12-03] MEDS ORDERED: SODIUM CHLORIDE 0.9% 1,000 ML IV STA (15:55)
--- NOTE | 2017-12-03 16:05 | ED ---
General Adult HPI <Barrie Johnson - Last Filed: 12/03/17 17:22> - General Source: patient, RN notes reviewed Mode of arrival: wheelchair Limitations: no limitations <Bob Guillen - Last Filed: 12/03/17 17:42> - General Chief complaint: Recheck/Abnormal Lab/Rx Stated complaint: High BP Time Seen by Provider: 12/03/17 15:45 - History of Present Illness Initial comments: Patient is an 82-year-old female who presents emergency room today with a chief complaint of elevated blood pressure. She does admit that she was at the pain specialist for a shot. She states that he checked her blood pressure was elevated and she was advised come here to the emergency room. Patient does admit that while she was at the doctor's office talking about that she began feeling a little dizzy. She states she's not had any other symptoms or any other complaints. She states she has had episodes in the past with her blood pressures been elevated. She states she's been taking her blood pressure medication as prescribed. (Bob Guillen) - Related Data Home Medications Medication Instructions Recorded Confirmed Primidone [Mysoline] 25 mg PO BID 07/04/17 12/03/17 Ibuprofen [Motrin] 400 mg PO HS PRN 12/03/17 12/03/17 Levothyroxine Sodium [Synthroid] 75 mcg PO DAILY 12/03/17 12/03/17 Warfarin [Coumadin] 2.5 mg PO MOTUSA 12/03/17 12/03/17 Warfarin [Coumadin] 5 mg PO SUWETHFR 12/03/17 12/03/17 clonazePAM [KlonoPIN] 0.5 mg PO TID PRN 12/03/17 12/03/17 Previous Rx's Medication Instructions Recorded Losartan [Cozaar] 50 mg PO DAILY tab 07/05/17 Allergies Allergy/AdvReac Type Severity Reaction Status Date / Time hydrocodone [From [place]] AdvReac Confusion Verified 12/03/17 16:58 Review of Systems ROS Other: All systems not noted in ROS Statement are negative. <AlexBarrie - Last Filed: 12/03/17 17:22> ROS Other: All systems not noted in ROS Statement are negative. <Bob Guillen - Last Filed: 12/03/17 17:42> ROS Statement: Those systems with pertinent positive or pertinent negative responses have been documented in the HPI. Past Medical History Past Medical History: Atrial Fibrillation, CVA/TIA, Hypertension, Myocardial Infarction ([place]), Thyroid Disorder Additional Past Medical History / Comment(s): frequent falls Last Myocardial Infarction Date:: 2011 History of Any Multi-Drug Resistant Organisms: None Reported Past Surgical History: Bladder Surgery, Heart Catheterization With Stent, Hysterectomy, Orthopedic Surgery Additional Past Surgical History / Comment(s): surgery X2 for trigeminal neuralgia Past Anesthesia/Blood Transfusion Reactions: Postoperative Nausea & Vomiting ( PONV) Additional Past Anesthesia/Blood Transfusion Reaction / Comment(s): patient has never received a blood transfusion Date of Last Stent Placement:: 2011 Past Psychological History: No Psychological Hx Reported Smoking Status: Never smoker Past Alcohol Use History: None Reported Past Drug Use History: None Reported - Past Family History Mother Family Medical History: Myocardial Infarction ([place]) Father Family Medical History: Congestive Heart Failure (CHF) Sister(s) Family Medical History: Coronary Artery Disease (CAD), Deep Vein Thrombosis (DVT ) Brother(s) Family Medical History: Congestive Heart Failure (CHF) <Bob Guillen - Last Filed: 12/03/17 17:42> General Exam <Barrie Johnson - Last Filed: 12/03/17 17:22> Limitations: no limitations <Bob Guillen - Last Filed: 12/03/17 17:42> - General Exam Comments Initial Comments: General: The patient is awake and alert, in no distress, and does not appear acutely ill. Eye: Pupils are equal, round and reactive to light, extra-ocular movements are intact. No nystagmus. There is normal conjunctiva bilaterally. No signs of icterus. Ears, nose, mouth and throat: There are moist mucous membranes and no oral lesions. Neck: The neck is supple, there is no tenderness or JVD. Cardiovascular: There is a regular rate and rhythm. No murmur, rub or gallop is appreciated. Respiratory: Lungs are clear to auscultation, respirations are non-labored, breath sounds are equal. No wheezes, stridor, rales, or rhonchi. Musculoskeletal: Normal ROM, no tenderness. Strength 5/5. Sensation intact. Pulses equal bilaterally 2+. Neurological: A&O x 3. CN II-XII intact, There are no obvious motor or sensory deficits. Coordination appears grossly intact. Speech is normal. Skin: Skin is warm and dry and no rashes or lesions are noted. Psychiatric: Cooperative, appropriate mood & affect, normal judgment. (Bob Guillen) Course <Barrie Johnson - Last Filed: 12/03/17 17:22> <Bob Guillen - Last Filed: 12/03/17 17:42> Vital Signs 12/03/17 12/03/17 12/03/17 13:48 15:53 16:00 Temperature 97.2 F L Pulse Rate 68 72 60 Respiratory 18 17 16 Rate Blood Pressure 228/97 221/102 201/94 O2 Sat by Pulse 100 98 99 Oximetry 12/03/17 12/03/17 16:24 16:49 Temperature Pulse Rate 68 71 Respiratory 16 16 Rate Blood Pressure 184/109 160/72 O2 Sat by Pulse 100 99 Oximetry - Reevaluation(s) Reevaluation #1: 12/03/17 17:23 PA supervision: I did personally do a [id number] evaluation of this patient and did discuss the findings with her including the need for increase oral fluids. Patient will be discharge her blood pressure is improved. I do agree with the assessment and plan. (Barrie Johnson) EKG Findings - EKG Comments: EKG Findings:: EKG performed at 1419: A 12-lead EKG was performed and interpreted by me as showing the following: Rate is 63, and rhythm is normal sinus. There are normal QRS complexes and normal R-wave progression. ST segments have no elevation or depression, and OK segments appear normal. <Bob Guillen - Last Filed: 12/03/17 17:42> Medical Decision Making - Lab Data Result diagrams: 12/03/17 16:15 12/03/17 16:15 <Barrie Johnson - Last Filed: 12/03/17 17:22> - Lab Data Result diagrams: 12/03/17 16:15 12/03/17 16:15 <Bob Guillen - Last Filed: 12/03/17 17:42> - Medical Decision Making Labs been reviewed unremarkable. Patient's blood pressure has improved her blood pressure medication given here in emergency room. Was given 10 mg hydralazine IV push. Patient feeling much better at this time. Please discuss that she went to her physician Dr. Johnson. Patient encouraged to increase oral fluids. (Bob Guillen) - Lab Data Lab Results 12/03/17 12/03/17 12/03/17 Range/Units 16:15 16:15 16:15 WBC 5.5 (3.8-10.6) k/uL RBC 4.72 (3.80-5.40) m/uL Hgb 14.2 (11.4-16.0) gm/dL Hct 42.5 (34.0-46.0) % MCV 89.9 (80.0-100.0) fL MCH 30.1 (25.0-35.0) pg MCHC 33.4 (31.0-37.0) g/dL RDW 13.7 (11.5-15.5) % Plt Count 270 (150-450) k/uL Neutrophils % 61 % Lymphocytes % 29 % Monocytes % 6 % Eosinophils % 2 % Basophils % 1 % Neutrophils # 3.3 (1.3-7.7) k/uL Lymphocytes # 1.6 (1.0-4.8) k/uL Monocytes # 0.3 (0-1.0) k/uL Eosinophils # 0.1 (0-0.7) k/uL Basophils # 0.0 (0-0.2) k/uL PT (9.0-12.0) sec INR (<1.2) Sodium 140 (137-145) mmol/L Potassium 4.2 (3.5-5.1) mmol/L Chloride 102 (98-107) mmol/L Carbon Dioxide 29 (22-30) mmol/L Anion Gap 9 mmol/L BUN 21 H (7-17) mg/dL Creatinine 0.78 (0.52-1.04) mg/dL Est GFR (MDRD) Af Amer >60 (>60 ml/min/1.73 sqM) Est GFR (MDRD) Non-Af >60 (>60 ml/min/1.73 sqM) Glucose 84 (74-99) mg/dL Calcium 10.4 H (8.4-10.2) mg/dL Total Bilirubin 0.8 (0.2-1.3) mg/dL AST 29 (14-36) U/L ALT 37 (9-52) U/L Alkaline Phosphatase 120 (38-126) U/L Total Creatine Kinase 70 (30-135) U/L CK-MB (CK-2) 2.1 (0.0-2.4) ng/mL CK-MB (CK-2) Rel Index 3.0 Troponin I <0.012 (0.000-0.034) ng/mL Total Protein 7.1 (6.3-8.2) g/dL Albumin 4.4 (3.5-5.0) g/dL 12/03/17 Range/Units 16:15 WBC (3.8-10.6) k/uL RBC (3.80-5.40) m/uL Hgb (11.4-16.0) gm/dL Hct (34.0-46.0) % MCV (80.0-100.0) fL MCH (25.0-35.0) pg MCHC (31.0-37.0) g/dL RDW (11.5-15.5) % Plt Count (150-450) k/uL Neutrophils % % Lymphocytes % % Monocytes % % Eosinophils % % Basophils % % Neutrophils # (1.3-7.7) k/uL Lymphocytes # (1.0-4.8) k/uL Monocytes # (0-1.0) k/uL Eosinophils # (0-0.7) k/uL Basophils # (0-0.2) k/uL PT 10.2 (9.0-12.0) sec INR 1.0 (<1.2) Sodium (137-145) mmol/L Potassium (3.5-5.1) mmol/L Chloride (98-107) mmol/L Carbon Dioxide (22-30) mmol/L Anion Gap mmol/L BUN (7-17) mg/dL Creatinine (0.52-1.04) mg/dL Est GFR (MDRD) Af Amer (>60 ml/min/1.73 sqM) Est GFR (MDRD) Non-Af (>60 ml/min/1.73 sqM) Glucose (74-99) mg/dL Calcium (8.4-10.2) mg/dL Total Bilirubin (0.2-1.3) mg/dL AST (14-36) U/L ALT (9-52) U/L Alkaline Phosphatase (38-126) U/L Total Creatine Kinase (30-135) U/L CK-MB (CK-2) (0.0-2.4) ng/mL CK-MB (CK-2) Rel Index Troponin I (0.000-0.034) ng/mL Total Protein (6.3-8.2) g/dL Albumin (3.5-5.0) g/dL Disposition <Barrie Johnson - Last Filed: 12/03/17 17:22> Time of Disposition: 17:40 <Bob Guillen - Last Filed: 12/03/17 17:42> Clinical Impression: HTN (hypertension) Disposition: HOME SELF-CARE Condition: Good Instructions: Hypertension (ED) Additional Instructions: Please use medication as discussed. Please follow-up with family doctor in the next 2 days of symptoms have not improved. Please return to emergency room if the symptoms increase or worsen or for any other concerns. Referrals: Mariano Barrios MD [Primary Care Provider] - 1-2 days
[2017-12-03 16:27] LABS: Basophils % (A) 1 %; Eosinophils # (A) 0.1 k/uL (0-0.7); Eosinophils % (A) 2 %; HCT 42.5 % (34.0-46.0); HGB 14.2 gm/dL (11.4-16.0); Lymphocytes # (A) 1.6 k/uL (1.0-4.8); Lymphocytes % (A) 29 %; MCH 30.1 pg (25.0-35.0); MCHC 33.4 g/dL (31.0-37.0); MCV 89.9 fL (80.0-100.0); Mean Platelet Volume 6.6; Monocytes # (A) 0.3 k/uL (0-1.0); Monocytes % (A) 6 %; Neutrophils # (A) 3.3 k/uL (1.3-7.7); Neutrophils % (A) 61 %; Platelet Count 270 k/uL (150-450); RBC 4.72 m/uL (3.80-5.40); RDW 13.7 % (11.5-15.5); WBC 5.5 k/uL (3.8-10.6)
[2017-12-03 16:34] LABS: ALT 37 U/L (9-52); AST 29 U/L (14-36); Albumin 4.4 g/dL (3.5-5.0); Alkaline Phosphatase 120 U/L (38-126); Anion Gap 9 mmol/L; Blood Urea Nitrogen 21 mg/dL (7-17); Calcium 10.4 mg/dL (8.4-10.2); Carbon Dioxide 29 mmol/L (22-30); Chloride 102 mmol/L (98-107); Glucose 84 mg/dL (74-99); Potassium 4.2 mmol/L (3.5-5.1); Sodium 140 mmol/L (137-145); Total Bilirubin 0.8 mg/dL (0.2-1.3); Total Protein 7.1 g/dL (6.3-8.2)
[2017-12-03 16:45] LABS: Creatine Kinase 70 U/L (30-135)
[2017-12-03 16:46] LABS: Prothrombin Time 10.2 sec (9.0-12.0)
[2017-12-03 16:59] LABS: Creatine Kinase MB 2.1 ng/mL (0.0-2.4); Troponin I <0.012 ng/mL (0.000-0.034)
[2017-12-03] MEDS ORDERED: SODIUM CHLORIDE 0.9% 500 ML IV STA (17:22)
[2017-12-04 23:05] VITALS: BP 162/81; PULSE 73; RESP 16; TEMP 97
== END 2017-12-03 18:15 | disposition home or self-care (01) ==
LOC: EC 13:18
DX: I10 Essential (primary) hypertension (principal); E07.9 Disorder of thyroid, unspecified; Z79.01 Long term (current) use of anticoagulants; Z79.899 Other long term (current) drug therapy; Z88.5 Allergy status to narcotic agent; Z95.818 Presence of other cardiac implants and grafts; Z82.49 Family history of ischemic heart disease and other diseases of the circulatory system
CPT/HCPCS: 36415; 93005; 80053; 82550; 82553; 84484; 85025; 85610; 99283; 96374; 96361 ×2; J0360; 99211

== ENCOUNTER → 2017-12-03 | Outpatient (CLI) | payer MEDICARE, BC ==
--- NOTE | 2017-12-03 12:45 | P.PN ---
Subjective Progress Note Date: 12/03/17 This is follow-up visit for this patient with a history of severe and chronic low back pain secondary to failed back surgery syndrome lumbar area , we have done yesterday injections with lysis of epidural adhesions done in May 2017 , and she had excellent pain relief for 4-5 months , was complaining of severe low back pain with radiation to the right lower extremity Patient denies any motor or sensory deficit , patient denies any fever or night sweats, denies any change in the bowel movements or urination Physical Examinations : 1-Constitutiona : Cooperative , not in acute distress . 2-HEENT : nech ; supple , no Lymphadenopathy , no Thyromegaly , normal thyroid size . eyes : no ptosis , no icterus, no photophobia . ENT : normal of hearing , normal oropharynx , no Thrush . 3- Respiratory : Chest clear to auscultations Bilaterally , no wheezing , no Rhonchi . 4- Cardiovascular : regular rate and rhythem , S1 , S2 , no S3 , no S4. 5- Gastrointestinal : abdomen soft no tenderness , bowel sounds positive all four quadrents , no organomegally . 6- Genitourinary : Defferred . 7- neurologic : Cranial nerve II to XII intact , no focal neurological deffecit . 8-psychatric : alert , oriented X 3 , appropriate affect , intact judgment and insight . 9-Lymphatic : no Lymphadenopathy . 10- musculoskeltal : exams of the Lumber spine = motor strength lower extremities ,thigh and legs .5/5 deep tendon reflexes : normal Knee Jerk , normal ankle Jerk . lumber facet Loading Test positive strait leg raising test positive at 30 degree , RT ,LT , Fabere test positive RT and positive LT . Range of motion: Range of motion in flexion of the lumbar spine 30 degrees Range of motion range of motion of extension of the lumbar spine 10 Sever tenderness over the Sacroiliac joint on the Right , and Left side Assessment and plan = Chronic low back pain secondary to failed back surgery syndrome lumbar. Benefit from caudal epidural steroid injections with lysis of epidural adhesions ( Coumadin for 5 days before the procedure ) - diagnoses, prognosis, and treatment options including but not limited to physical therapy, surgical interventions, interventional therapies , Objective - Vital Signs Vital signs: Vital Signs Temp 98.1 F 12/03/17 12:16 Pulse 68 01/02/18 12:16 Resp 16 12/03/17 12:16 BP 207/89 12/03/17 12:16 Pulse Ox 97 12/03/17 12:16 Intake & Output 12/02/17 12/03/17 12/03/17 18:59 06:59 18:59 Weight 43.998 kg
--- NOTE | 2017-12-03 12:49 | P.PN ---
Progress Note - Text Progress Note Date: 12/03/17 Blood pressure measurement was 260/89 measured twice, for this reason patient was instructed to see her primary care today ,or she has to go ,to the emergency room ,for treatment of her blood pressure because this is considered to hypertension emergency discussed with the patient regarding risk of stroke , CHF ,and kidney failure the risk
[2017-12-04 23:03] VITALS: BP 207/89; PULSE 68; RESP 16; TEMP 98.1
== END | disposition home or self-care (01) ==
LOC: PNWHC3 11:59
PROVIDERS: ATTEND Specialist
DX: M96.1 Postlaminectomy syndrome, not elsewhere classified (principal)
CPT/HCPCS: 99211

== ENCOUNTER 2017-12-30 06:10 | Day surgery (SDC) | payer MEDICARE, BC ==
[2017-12-24 15:37] VITALS: BMI 17.4
[2017-12-30] MEDS ORDERED: LACTATED RINGERS 1,000 ML IV ONE (06:48)
[2017-12-30] MEDS ORDERED: LIDOCAINE 1% 20 ML VIAL (10MG/ML) FOR IV START INTRADERMA ONE (06:48)
[2017-12-30 06:53] VITALS: RESP 18; TEMP 97.8
[2017-12-30 06:57] LABS: INR 1.1 (<1.2); Prothrombin Time 10.7 sec (9.0-12.0)
[2017-12-30] MEDS ORDERED: methylPREDNISolone ACETATE 40 MG/ML 1 ML VIAL ONE (07:09)
[2017-12-30] MEDS ORDERED: LACTATED RINGERS 1,000 ML IV SCH (07:15)
--- NOTE | 2017-12-30 07:33 | P.PCN ---
Date of Procedure: 12/30/17 Surgeon: Delvin Bailey Pathology: none sent Condition: stable Disposition: PACU Description of Procedure: PREOP DIAGNOSIS: Lumbar postlaminectomy syndrome POSTOP DIAGNOSIS: Lumbar postlaminectomy syndrome PROCEDURE: Caudal epidural steroid injection with epidurolysis and epidurogram under fluoroscopic guidance ANESTHESIA: Local with 1% lidocaine; conscious sedation EBL: Minimal. PROCEDURE INDICATION: The patient with post-laminectomy syndrome with low back pain and radiculopathy radiating down in both legs, here for a caudal epidural steroid injection with epidurolysis, #2 after good relief for 4-5 months from previous procedure. Patient does not use any blood thinning medications. PROCEDURE DESCRIPTION: The patient was seen and identified in the preoperative area. Risks, benefits, complications, and alternatives were discussed with the patient including but not limited to bleeding, infection, nerve damage, incomplete pain relief, and allergic reactions to medications. The patient agreed to proceed with the procedure and signed the consent after all questions were answered. IV was started, and vital signs were stable. Patient was taken to the OR and time out was completed to verify proper patient , procedure, laterality of pain, and allergies. The patient was placed in the prone position on procedure table and a pillow was placed under the abdomen to reduce lumbar lordosis. The lumbosacral area was prepped and draped in the usual sterile fashion. Critical pause was taken. Vital signs were closely monitored during the procedure. Fluoroscopic camera was placed in the lateral view and the anterior-posterior plates of the sacrum were identified with infiltration of the area overlying the sacral hiatus with 1% lidocaine .A 15 gauge RK epidural needle was used to advance through the sacral hiatus into the caudal epidural space. Omnipaque 300 dye 2cc was injected and the position of the needle was verified to be in the midline. A Racz catheter was introduced into the epidural space and was advanced towards the L5-S1 interspace under direct fluoroscopic guidance. Multiple passes were made with the catheter for lysis of epidural adhesions. DepoMedrol 80 mg with 2 ml of preservative free Lidocaine 1% and 7 ml of preservative free normal saline was injected slowly. Additional spread was seen to L3 under fluoroscopy. The needle and the catheter were withdrawn intact. EPIDUROGRAM: Omnipaque 300 dye 2 ml was injected with spread of the dye into the caudal epidural space and with spread cutoff at L4 prior to epidurolysis. Post epidurolysis dye 2 ml was injected and spread was seen to L3. There was further spread of the solution together with the dye at the L3 level. COMPLICATIONS: None. DISPOSITION / PLANS: The patient was placed in a supine position and transferred to the recovery area in a stable condition for observation and was discharged from the recovery room after meeting discharge criteria. Home discharge instructions given to the patient by the staff. The patient was reexamined prior to discharge. The patient will schedule a follow up as needed. Patient will follow-up as needed; she can call and be scheduled for caudal MEY with epidurolysis in the future as needed.
--- NOTE | 2017-12-30 07:42 | FL ---
Fluoroscopy INDICATION: Pain FINDINGS: Fluoroscopy time: 26 seconds. Images obtained: 4. IMPRESSIONS: 1. Documentation of fluoroscopy.
[2017-12-30 08:05] VITALS: BP 143/77; PULSE 55
== END 2017-12-30 08:19 | disposition home or self-care (01) ==
LOC: ORPAIN 06:10
PROVIDERS: ATTEND Anesthesiology
DX: G89.29 Other chronic pain (principal); M96.1 Postlaminectomy syndrome, not elsewhere classified; G96.12 Meningeal adhesions (cerebral) (spinal); Z88.5 Allergy status to narcotic agent
CPT/HCPCS: 85610; 62264; J2250; J1030; Q9965; J3010; C1894; 99152

== ENCOUNTER 2018-05-31 13:32 | Observation (INO) | payer MEDICARE, BC ==
[2018-05-31] MEDS ORDERED: SODIUM CHLORIDE 0.9% 500 ML IV STA (13:44)
[2018-05-31 13:46] LABS: Glucose,Whole Blood 143 mg/dL (75-99)
--- NOTE | 2018-05-31 13:50 | ED ---
General Adult HPI - General Chief complaint: Neuro Symptoms/Deficit Stated complaint: TIA Source: patient, EMS, RN notes reviewed Mode of arrival: EMS Limitations: altered mental status - History of Present Illness Initial comments: This is an 82-year-old female who presents to the emergency department complaining of difficulty speaking and some right sided weakness. Patient states it started 1240. According to EMS symptoms improved since the onset. Patient denies any chest pain difficulty breathing shortness of breath. Patient denies any headache. Patient denies any recent fever chills or cough. Patient denies any history of stroke or TIA. Patient states she has had a heart attack in the cardiac stent placed. Patient denies any abdominal pain patient denies nausea vomiting diarrhea. Patient states earlier was difficult to move her hand at all now it's moving much better - Related Data Home Medications Medication Instructions Recorded Confirmed Levothyroxine Sodium [Synthroid] 75 mcg PO DAILY 12/03/17 05/31/18 Warfarin [Coumadin] 5 mg PO MOWEFR 12/03/17 05/31/18 clonazePAM [KlonoPIN] 0.5 mg PO TID PRN 12/03/17 05/31/18 Diltiazem HCl 30 mg PO TID 12/30/17 05/31/18 Losartan Potassium [Cozaar] 50 mg PO DAILY 05/31/18 05/31/18 Warfarin [Coumadin] 2.5 mg PO SUTUTHSA 05/31/18 05/31/18 Allergies Allergy/AdvReac Type Severity Reaction Status Date / Time hydrocodone [From [place]] AdvReac Confusion Verified 05/31/18 14:13 Review of Systems ROS Statement: Those systems with pertinent positive or pertinent negative responses have been documented in the HPI. ROS Other: All systems not noted in ROS Statement are negative. Past Medical History Past Medical History: Atrial Fibrillation, CVA/TIA, Hypertension, Myocardial Infarction ([place]), Thyroid Disorder Additional Past Medical History / Comment(s): frequent falls Last Myocardial Infarction Date:: 2011 History of Any Multi-Drug Resistant Organisms: None Reported Past Surgical History: Bladder Surgery, Heart Catheterization With Stent, Hysterectomy, Orthopedic Surgery Additional Past Surgical History / Comment(s): surgery X2 for trigeminal neuralgia Past Anesthesia/Blood Transfusion Reactions: Postoperative Nausea & Vomiting ( PONV) Additional Past Anesthesia/Blood Transfusion Reaction / Comment(s): patient has never received a blood transfusion Date of Last Stent Placement:: 2011 Past Psychological History: No Psychological Hx Reported Smoking Status: Never smoker Past Alcohol Use History: None Reported Past Drug Use History: None Reported - Past Family History Mother Family Medical History: Myocardial Infarction ([place]) Father Family Medical History: Congestive Heart Failure (CHF) Sister(s) Family Medical History: Coronary Artery Disease (CAD), Deep Vein Thrombosis (DVT ) Brother(s) Family Medical History: Congestive Heart Failure (CHF) General Exam - General Exam Comments Initial Comments: GENERAL: Patient is well-developed and well-nourished. Patient is nontoxic and well- hydrated and is in no acute distress. ENT: Neck is soft and supple. No significant lymphadenopathy is noted. Oropharynx is clear. Moist mucous membranes. Neck has full range of motion without eliciting any pain. EYES: The sclera were anicteric and conjunctiva were pink and moist. Extraocular movements were intact and pupils were equal round and reactive to light. Eyelids were unremarkable. PULMONARY: Unlabored respirations. Good breath sounds bilaterally. No audible rales rhonchi or wheezing was noted. CARDIOVASCULAR: There is a regular rate and rhythm without any murmurs gallops or rubs. ABDOMEN: Soft and nontender with normal bowel sounds. No palpable organomegaly was noted. There is no palpable pulsatile mass. SKIN: Skin is clear with no lesions or rashes and otherwise unremarkable. NEUROLOGIC: Patient is alert and oriented x3. Cranial nerves II through XII are grossly intact. Patient's cement side laster is 4-5 on the right compared to left and patient's dorsiflexion and plantar flexion are 4 to 5. compared to the right. Normal speech, volume and content. Symmetrical smile. MUSCULOSKELETAL: Normal extremities with adequate strength and full range of motion. No lower extremity swelling or edema. No calf tenderness. LYMPHATICS: No significant lymphadenopathy is noted PSYCHIATRIC: Normal psychiatric evaluation. Normal interpersonal interactions appears functionally intact in deals appropriately with others. No signs of depression. No signs of anxiety. Limitations: altered mental status Course Vital Signs 05/31/18 05/31/18 13:34 14:00 Temperature 98.1 F Pulse Rate 63 62 Respiratory 18 18 Rate Blood Pressure 160/67 142/64 O2 Sat by Pulse 98 98 Oximetry Medical Decision Making - Medical Decision Making EKG shows atrial fibrillation at 61 bpm QRS is 82 QT intervals 416 QTC is 418. Patient's EKG shows no ST segment elevation or depression or T wave abnormalities are noted CT of the brain shows no acute abnormality. Chest x-ray shows no acute abnormality. I went back into the room to reevaluate the patient patient had no symptoms at this time. - Lab Data Result diagrams: 05/31/18 14:05 05/31/18 14:05 Lab Results 05/31/18 05/31/18 05/31/18 Range/Units 13:42 14:05 14:05 WBC 7.2 (3.8-10.6) k/uL RBC 4.53 (3.80-5.40) m/uL Hgb 13.4 (11.4-16.0) gm/dL Hct 39.9 (34.0-46.0) % MCV 88.2 (80.0-100.0) fL MCH 29.7 (25.0-35.0) pg MCHC 33.6 (31.0-37.0) g/dL RDW 14.6 (11.5-15.5) % Plt Count 273 (150-450) k/uL Neutrophils % 75 % Lymphocytes % 16 % Monocytes % 6 % Eosinophils % 2 % Basophils % 0 % Neutrophils # 5.4 (1.3-7.7) k/uL Lymphocytes # 1.1 (1.0-4.8) k/uL Monocytes # 0.5 (0-1.0) k/uL Eosinophils # 0.1 (0-0.7) k/uL Basophils # 0.0 (0-0.2) k/uL PT (9.0-12.0) sec INR (<1.2) APTT (22.0-30.0) sec Sodium 141 (137-145) mmol/L Potassium 4.4 (3.5-5.1) mmol/L Chloride 105 (98-107) mmol/L Carbon Dioxide 24 (22-30) mmol/L Anion Gap 12 mmol/L BUN 27 H (7-17) mg/dL Creatinine 1.04 (0.52-1.04) mg/dL Est GFR (CKD-EPI)AfAm 58 (>60 ml/min/1.73 sqM) Est GFR (CKD-EPI)NonAf 50 (>60 ml/min/1.73 sqM) Glucose 106 H (74-99) mg/dL POC Glucose (mg/dL) 143 H (75-99) mg/dL POC Glu Entrance Guard [facility] Calcium 9.7 (8.4-10.2) mg/dL Total Bilirubin 0.4 (0.2-1.3) mg/dL AST 26 (14-36) U/L ALT 25 (9-52) U/L Alkaline Phosphatase 125 (38-126) U/L Total Protein 6.7 (6.3-8.2) g/dL Albumin 4.1 (3.5-5.0) g/dL 05/31/18 Range/Units 14:05 WBC (3.8-10.6) k/uL RBC (3.80-5.40) m/uL Hgb (11.4-16.0) gm/dL Hct (34.0-46.0) % MCV (80.0-100.0) fL MCH (25.0-35.0) pg MCHC (31.0-37.0) g/dL RDW (11.5-15.5) % Plt Count (150-450) k/uL Neutrophils % % Lymphocytes % % Monocytes % % Eosinophils % % Basophils % % Neutrophils # (1.3-7.7) k/uL Lymphocytes # (1.0-4.8) k/uL Monocytes # (0-1.0) k/uL Eosinophils # (0-0.7) k/uL Basophils # (0-0.2) k/uL PT 19.7 H (9.0-12.0) sec INR 2.2 H (<1.2) APTT 26.1 (22.0-30.0) sec Sodium (137-145) mmol/L Potassium (3.5-5.1) mmol/L Chloride (98-107) mmol/L Carbon Dioxide (22-30) mmol/L Anion Gap mmol/L BUN (7-17) mg/dL Creatinine (0.52-1.04) mg/dL Est GFR (CKD-EPI)AfAm (>60 ml/min/1.73 sqM) Est GFR (CKD-EPI)NonAf (>60 ml/min/1.73 sqM) Glucose (74-99) mg/dL POC Glucose (mg/dL) (75-99) mg/dL POC Glu Entrance Guard [place] Calcium (8.4-10.2) mg/dL Total Bilirubin (0.2-1.3) mg/dL AST (14-36) U/L ALT (9-52) U/L Alkaline Phosphatase (38-126) U/L Total Protein (6.3-8.2) g/dL Albumin (3.5-5.0) g/dL Disposition Clinical Impression: Transient cerebral ischemia Disposition: ADMITTED IP TO THIS HOSP Referrals: Mariano Barrios MD [Primary Care Provider] - 1-2 days Time of Disposition: 14:55
--- NOTE | 2018-05-31 14:13 | CT ---
EXAMINATION TYPE: CT brain wo con for TPA DATE OF EXAM: 05/31/2018 COMPARISON: Prior head CT 07/04/2017 and 11/01/2016 HISTORY: Rt sided weakness, memory loss CT DLP: 912.9 mGycm Automated exposure control for dose reduction was used. Helical acquisition through the brain without contrast FINDINGS: Periventricular white matter shows patchy low attenuation as on prior exam. There is no hemorrhage or hydrocephalus. Calvarium is intact. Paranasal sinuses and mastoid air cells, orbits are stable. Cere bral vascular calcifications noted incidentally. Postop changes status post craniotomy again seen. Th ere is calcification density present at the costophrenic angle on the left courses posteriorly in a s imilar distribution to prior exams, stable, possibly postoperative IMPRESSION: STABLE EXAM, NO ACUTE ABNORMALITIES EVIDENT. AGE-RELATED CHANGES OF ATROPHY AND PROBABLE CHRONIC SMAL L VESSEL ISCHEMIA. Postop changes as described.
--- NOTE | 2018-05-31 14:17 | XR ---
EXAMINATION TYPE: XR chest 2V DATE OF EXAM: 05/31/2018 COMPARISON: Prior chest 07/04/2017 HISTORY: Altered mental status, right-sided weakness TECHNIQUE: Frontal and lateral views of the chest are obtained. FINDINGS: There is no focal air space opacity, pleural effusion, or pneumothorax seen. The cardiac silhouette size is within normal limits. There are overlying cardiac leads. The osseous structures are intact. IMPRESSION: No acute cardiopulmonary process.
[2018-05-31 14:20] LABS: Basophils % (A) 0 %; Eosinophils # (A) 0.1 k/uL (0-0.7); Eosinophils % (A) 2 %; HCT 39.9 % (34.0-46.0); HGB 13.4 gm/dL (11.4-16.0); Lymphocytes # (A) 1.1 k/uL (1.0-4.8); Lymphocytes % (A) 16 %; MCH 29.7 pg (25.0-35.0); MCHC 33.6 g/dL (31.0-37.0); MCV 88.2 fL (80.0-100.0); Mean Platelet Volume 6.7; Monocytes # (A) 0.5 k/uL (0-1.0); Monocytes % (A) 6 %; Neutrophils # (A) 5.4 k/uL (1.3-7.7); Neutrophils % (A) 75 %; Platelet Count 273 k/uL (150-450); RBC 4.53 m/uL (3.80-5.40); RDW 14.6 % (11.5-15.5); WBC 7.2 k/uL (3.8-10.6)
[2018-05-31 14:32] LABS: Albumin 4.1 g/dL (3.5-5.0); Calcium 9.7 mg/dL (8.4-10.2); Potassium 4.4 mmol/L (3.5-5.1); Total Bilirubin 0.4 mg/dL (0.2-1.3); Total Protein 6.7 g/dL (6.3-8.2)
[2018-05-31 14:34] LABS: INR 2.2 (<1.2); Partial Thromboplastin Time 26.1 sec (22.0-30.0); Prothrombin Time 19.7 sec (9.0-12.0)
[2018-05-31 14:43] LABS: Creatine Kinase 59 U/L (30-135)
[2018-05-31 14:56] LABS: Creatine Kinase MB 1.2 ng/mL (0.0-2.4); Troponin I <0.012 ng/mL (0.000-0.034)
[2018-05-31] MEDS ORDERED: ASPIRIN 325 MG TAB PO STA (14:57)
[2018-05-31 16:30] VITALS: BMI 20.8
[2018-05-31] MEDS ORDERED: clonazePAM 0.5 MG TAB PO PRN (17:20)
--- NOTE | 2018-05-31 17:24 | P.HPIM ---
History of Present Illness H&P Date: 05/31/18 Chief Complaint: Right-sided weakness; difficulties with speech This is an 82-year-old female with past medical history of hypothyroidism, atrial fibrillation, hypertension, myocardial infarction and CVA/TIA ,who presents to the emergency department complaining of difficulty speaking and some right sided weakness. Patient states it started 1240. According to EMS symptoms improved since the onset. Patient denies any chest pain difficulty breathing shortness of breath. Patient denies any headache. Patient denies any recent fever chills or cough. Patient denies any history of stroke or TIA. Patient states she has had a heart attack in the cardiac stent placed. Patient denies any abdominal pain patient denies nausea vomiting diarrhea. Patient states earlier was difficult to move her hand at all now it's moving much better Review of Systems Constitutional: Denies fever, Denies weight gain, Denies weight loss Eyes: denies blurred vision, denies diplopia Ears: deny: decreased hearing Cardiovascular: Reports irregular heart beat, Denies chest pain, Denies dyspnea on exertion, Denies lightheadedness, Denies palpitations, Denies shortness of breath Respiratory: Denies cough with sputum, Denies hemoptysis, Denies wheezing Gastrointestinal: Denies diarrhea, Denies nausea, Denies vomiting Genitourinary: Denies dysuria, Denies hematuria Musculoskeletal: Denies frequent falls Integumentary: Denies color changes, Denies dryness, Denies rash Neurological: Reports change in speech, Denies visual changes Psychiatric: Denies anxiety, Denies confusion Endocrine: Denies excessive thirst, Denies fatigue, Denies polydipsia, Denies polyuria Hematologic/Lymphatic: Denies easy bruising Past Medical History Past Medical History: Atrial Fibrillation, CVA/TIA, Hypertension, Myocardial Infarction ([place]), Thyroid Disorder Additional Past Medical History / Comment(s): frequent falls Last Myocardial Infarction Date:: 2011 History of Any Multi-Drug Resistant Organisms: None Reported Past Surgical History: Bladder Surgery, Heart Catheterization With Stent, Hysterectomy, Orthopedic Surgery Additional Past Surgical History / Comment(s): surgery X2 for trigeminal neuralgia Past Anesthesia/Blood Transfusion Reactions: Postoperative Nausea & Vomiting ( PONV) Additional Past Anesthesia/Blood Transfusion Reaction / Comment(s): patient has never received a blood transfusion Date of Last Stent Placement:: 2011 Past Psychological History: No Psychological Hx Reported Smoking Status: Never smoker Past Alcohol Use History: None Reported Past Drug Use History: None Reported - Past Family History Mother Family Medical History: Myocardial Infarction ([place]) Father Family Medical History: Congestive Heart Failure (CHF) Sister(s) Family Medical History: Coronary Artery Disease (CAD), Deep Vein Thrombosis (DVT ) Brother(s) Family Medical History: Congestive Heart Failure (CHF) Medications and Allergies Home Medications Medication Instructions Recorded Confirmed Type Levothyroxine Sodium [Synthroid] 75 mcg PO DAILY 12/03/17 05/31/18 History Warfarin [Coumadin] 5 mg PO MOWEFR 12/03/17 05/31/18 History clonazePAM [KlonoPIN] 0.5 mg PO TID PRN 12/03/17 05/31/18 History Diltiazem HCl 30 mg PO TID 12/30/17 05/31/18 History Losartan Potassium [Cozaar] 50 mg PO DAILY 05/31/18 05/31/18 History Warfarin [Coumadin] 2.5 mg PO SUTUTHSA 05/31/18 05/31/18 History Allergies Allergy/AdvReac Type Severity Reaction Status Date / Time hydrocodone [From [place]] AdvReac Confusion Verified 05/31/18 14:13 Physical Exam Vitals: Vital Signs Temp Pulse Pulse Resp BP BP Pulse Ox 05/31/18 16:00 97.5 F L 63 18 128/64 99 05/31/18 15:00 97.5 F L 67 18 128/57 98 05/31/18 14:00 62 18 142/64 98 05/31/18 13:34 98.1 F 63 18 160/67 98 Intake and Output 05/31/18 05/31/18 05/31/18 06:59 14:59 22:59 Other: Weight 45.359 kg - Constitutional General appearance: Present: average body habitus, cooperative, no acute distress - EENT Eyes: Present: anicteric sclerae, EOMI, PERRLA, normal appearance ENT: Present: hearing grossly normal, normal oropharynx Ears: bilateral: normal - Neck Neck: Present: normal ROM. Absent: lymphadenopathy, rigidity, thyromegaly Carotids: negative: bruit present Thyroid: bilateral: normal size, negative: enlarged, nodule - Respiratory Respiratory: bilateral: CTA, negative: rales, rhonchi, wheezing - Cardiovascular Rhythm: regular Heart sounds: normal: S1, S2 Abnormal Heart Sounds: Absent: systolic murmur, diastolic murmur - Gastrointestinal General gastrointestinal: Present: normal bowel sounds, soft. Absent: distended , organomegaly, tenderness - Genitourinary Genitourinary Comment(s): deferred - Integumentary Integumentary: Present: normal turgor. Absent: jaundiced, rash, ulcer - Neurologic Neurologic: Present: CNII-XII intact. Absent: focal deficits - Musculoskeletal Musculoskeletal: Present: gait normal, strength equal bilaterally - Psychiatric Psychiatric: Present: A&O x's 3, appropriate affect, intact judgment & insight Results CBC & Chem 7: 05/31/18 14:05 05/31/18 14:05 Labs: Abnormal Lab Results - Last 24 Hours (Table) 05/31/18 05/31/18 05/31/18 Range/Units 13:42 14:05 14:05 PT 19.7 H (9.0-12.0) sec INR 2.2 H (<1.2) BUN 27 H (7-17) mg/dL Glucose 106 H (74-99) mg/dL POC Glucose (mg/dL) 143 H (75-99) mg/dL Assessment and Plan Assessment: 1. TIA/CVA - We will admit the patient to selective care unit - Monitor neuro checks per unit protocol - We will order bilateral carotid Doppler studies and echocardiogram with bubble study - We will order TSH/free T4 along with vitamin B12 levels - Consult nephrology for further recommendations - Continue patient on aspirin 325 mg daily along with statin therapy - PT/OT/CHILDCARE ATTENDANT consulted 2. Uncontrolled hypertension - Patient takes diltiazem 30 mg 3 times a day along with losartan 50 mg daily - We will resume both home medications and blood pressure monitoring closely - Adjust medications if needed 3. Mild [place] I - Step patient on slow IV fluid hydration - Monitor strict STORM's along with renal function and electrolytes - Avoid hypotension and nephrotoxins 4. Hypothyroidism; on levothyroxine 75 MCG daily - We will order TSH and free T4 5. Chronic atrial fibrillation; patient remains on Cardizem and Coumadin for anticoagulation 6. CAD/history of [place]; stable; continue with current home medications 7. DVT prophylaxis; SCDs/systemic anticoagulation CODE STATUS; full code Time with Patient: Greater than 30
[2018-05-31] MEDS: WARFARIN 2.5 MG TAB PO SCH (18:24)
[2018-05-31] MEDS: DILTIAZEM ORAL 30 MG TAB PO SCH (20:46)
[2018-06-01] MEDS: LEVOTHYROXINE 75 MCG TAB PO SCH (06:10)
[2018-06-01 07:36] LABS: HCT 38.5 % (34.0-46.0); HGB 12.9 gm/dL (11.4-16.0); MCHC 33.6 g/dL (31.0-37.0); MCV 89.2 fL (80.0-100.0); Mean Platelet Volume 6.5; Platelet Count 266 k/uL (150-450); RBC 4.32 m/uL (3.80-5.40); RDW 14.5 % (11.5-15.5); WBC 6.7 k/uL (3.8-10.6)
[2018-06-01 07:42] LABS: INR 2.6 (<1.2); Prothrombin Time 23.2 sec (9.0-12.0)
[2018-06-01 07:49] LABS: Albumin 3.6 g/dL (3.5-5.0); Calcium 9.5 mg/dL (8.4-10.2); Potassium 4.4 mmol/L (3.5-5.1); Total Bilirubin 0.5 mg/dL (0.2-1.3); Total Protein 6.1 g/dL (6.3-8.2)
[2018-06-01] MEDS: ASPIRIN 325 MG TAB PO SCH (09:16)
[2018-06-01] MEDS: LOSARTAN 50 MG TAB PO SCH (09:16)
[2018-06-01] MEDS: DILTIAZEM ORAL 30 MG TAB PO SCH ×3 (09:16→20:27)
[2018-06-01 11:02] LABS: Cholesterol 185 mg/dL (<200); HDL Cholesterol 67 mg/dL (40-60); LDL Cholesterol,Calculated 98 mg/dL (0-99); Triglycerides 102 mg/dL (<150)
--- NOTE | 2018-06-01 16:49 | P.CNNES ---
History of Present Illness Consult date: 06/01/18 Requesting physician: Raji Damon Reason for Consult: TIA History of Present Illness: Patient is a pleasant 82-year-old female who is being evaluated by the neurology service on 06/01/2018 per the request of Dr. Damon for TIA. Patient has past medical history of atrial fibrillation, hypertension, myocardial infarction, CVA/TIA, and hypothyroidism. Patient states she woke up yesterday morning and was fine and throughout the day she started not to feel well. Patient states she had gone to the bathroom and lost her balance. Daughter was home and noticed patient was slurring her words and having right- sided weakness. EMS was called and patient was brought to [facility] for further evaluation. According to the chart, EMS states symptoms improved by the time they reached the patient. Patient denies any headache or visual changes. Patient takes warfarin in the home setting for atrial fibrillation. Patient's INR was 2.2 on admission. On admission vital signs were temperature 98.1, pulse rate 63, respiratory rate 18, blood pressure 160/67 , and O2 saturation was 90% on 2 L nasal cannula. Labs on admission showed elevated BUN of 27 with creatinine of 1.04. Lipid panel is within normal limits except for high HDL of 67. At the time of my evaluation, patient is resting comfortably in bed and appears to be in no acute distress. Patient denies any recurrence of symptoms. Review of Systems REVIEW OF SYSTEMS: Otherwise unremarkable and noncontributory. Past Medical History Past Medical History: Atrial Fibrillation, CVA/TIA, Hypertension, Myocardial Infarction ([place]), Thyroid Disorder Additional Past Medical History / Comment(s): frequent falls Last Myocardial Infarction Date:: 2011 History of Any Multi-Drug Resistant Organisms: None Reported Past Surgical History: Bladder Surgery, Heart Catheterization With Stent, Hysterectomy, Orthopedic Surgery Additional Past Surgical History / Comment(s): surgery X2 for trigeminal neuralgia Past Anesthesia/Blood Transfusion Reactions: Postoperative Nausea & Vomiting ( PONV) Additional Past Anesthesia/Blood Transfusion Reaction / Comment(s): patient has never received a blood transfusion Date of Last Stent Placement:: 2011 Past Psychological History: No Psychological Hx Reported Smoking Status: Never smoker Past Alcohol Use History: None Reported Past Drug Use History: None Reported - Past Family History Mother Family Medical History: Myocardial Infarction ([place]) Father Family Medical History: Congestive Heart Failure (CHF) Sister(s) Family Medical History: Coronary Artery Disease (CAD), Deep Vein Thrombosis (DVT ) Brother(s) Family Medical History: Congestive Heart Failure (CHF) Medications and Allergies Home Medications Medication Instructions Recorded Confirmed Type Levothyroxine Sodium [Synthroid] 75 mcg PO DAILY 12/03/17 05/31/18 History Warfarin [Coumadin] 5 mg PO MOWEFR 12/03/17 05/31/18 History clonazePAM [KlonoPIN] 0.5 mg PO TID PRN 12/03/17 05/31/18 History Diltiazem HCl 30 mg PO TID 12/30/17 05/31/18 History Losartan Potassium [Cozaar] 50 mg PO DAILY 05/31/18 05/31/18 History Warfarin [Coumadin] 2.5 mg PO SUTUTHSA 05/31/18 05/31/18 History Allergies Allergy/AdvReac Type Severity Reaction Status Date / Time hydrocodone [From [place]] AdvReac Confusion Verified 05/31/18 14:13 Physical Examination - Vital Signs Vital Signs: Vital Signs Temp Pulse Resp BP Pulse Ox 06/01/18 12:02 97.0 F L 63 20 162/72 95 06/01/18 11:38 66 16 06/01/18 09:15 96.6 F L 66 16 184/80 97 06/01/18 09:12 66 18 06/01/18 04:00 66 18 06/01/18 03:25 98.5 F 66 18 138/77 96 05/31/18 23:55 64 18 05/31/18 23:54 98.3 F 64 18 126/64 97 05/31/18 20:00 97.8 F 72 18 148/72 96 05/31/18 18:02 97.0 F L 72 18 139/82 99 05/31/18 18:00 63 18 Intake and Output 06/01/18 06/01/18 06/01/18 06:59 14:59 22:59 Intake Total 520 Output Total 325 Balance 195 Intake: Oral 520 Output: Urine 325 Other: Voiding Method Toilet Toilet # Voids 2 1 Weight 48.3 kg PHYSICAL EXAM: GENERAL APPEARANCE: Patient is a well-developed, female who appears to be in no acute distress. HEENT: Normocephalic, atraumatic, no facial asymmetry is seen. Neck is supple with no masses felt. CARDIOVASCULAR: Regular rate and rhythm. ABDOMEN: Nontender, nondistended. EXTREMITIES: Show no edema or clubbing. NEUROLOGICAL EXAM: Patient is awake, alert, and oriented 3. Speech and language are normal. Strength is 5-/5 in the right upper extremity and 5/5 in all other extremities. No facial asymmetry is seen on cranial nerve testing. Sensory exam to light touch is normal in all 4 extremities. No pronator drift is noted. No tremors or seizure-like activity noted. Results - Laboratory Findings CBC and BMP: 06/01/18 06:59 06/01/18 06:59 Abnormal Lab Findings: Abnormal Labs 05/31/18 05/31/18 05/31/18 13:42 14:05 14:05 PT 19.7 H INR 2.2 H Chloride BUN 27 H Glucose 106 H POC Glucose (mg/dL) 143 H Total Protein HDL Cholesterol 05/31/18 06/01/18 06/01/18 14:05 06:59 06:59 PT 23.2 H INR 2.6 H Chloride 109 H BUN Glucose POC Glucose (mg/dL) Total Protein 6.1 L HDL Cholesterol 67 H Assessment and Plan Plan: Impression: 1. TIA 2. Uncontrolled hypertension 3. Atrial fibrillation, on warfarin 4. CAD/history of cardiac stent 5. Mild renal insufficiency Recommendations: It does appear that patient had a transient ischemic attack with a transient episode of dysarthria and right-sided weakness. Symptoms have since resolved. Patient denies any recurrence of symptoms. Computed tomography scan of the brain on admission did not show any acute process. I will order bilateral carotid Doppler studies. I will order an EEG and serum homocystine level. I recommend to continue warfarin and monitor to be within therapeutic range. I recommend low-dose statin therapy. Continue neurological checks. I recommend PT to evaluate and treat. I will continue to follow with you. Further recommendations to follow. Thank you for allowing me to participate in the care of your patient. Feel free to call with any questions or concerns. I performed an examination of the patient and discussed the management with the STAKEHOLDER MANAGER. I have reviewed the STAKEHOLDER MANAGER notes and agree with the findings and plan of care.
[2018-06-01] MEDS: WARFARIN 2.5 MG TAB PO SCH (17:24)
[2018-06-01 21:41] VITALS: RESP 18
[2018-06-02 06:19] LABS: HCT 38.4 % (34.0-46.0); HGB 12.5 gm/dL (11.4-16.0); MCH 29.1 pg (25.0-35.0); MCHC 32.6 g/dL (31.0-37.0); MCV 89.2 fL (80.0-100.0); Mean Platelet Volume 6.4; Platelet Count 249 k/uL (150-450); RBC 4.31 m/uL (3.80-5.40); RDW 14.6 % (11.5-15.5); WBC 6.6 k/uL (3.8-10.6)
[2018-06-02 06:41] LABS: Albumin 3.5 g/dL (3.5-5.0); Calcium 9.5 mg/dL (8.4-10.2); Magnesium 1.9 mg/dL (1.6-2.3); Potassium 4.8 mmol/L (3.5-5.1); Total Bilirubin 0.2 mg/dL (0.2-1.3); Total Protein 5.8 g/dL (6.3-8.2)
[2018-06-02] MEDS: LEVOTHYROXINE 75 MCG TAB PO SCH (06:53)
[2018-06-02 07:27] LABS: INR 2.5 (<1.2); Prothrombin Time 22.2 sec (9.0-12.0)
[2018-06-02] MEDS: ASPIRIN 325 MG TAB PO SCH (08:19)
[2018-06-02] MEDS: DILTIAZEM ORAL 30 MG TAB PO SCH ×2 (08:19→15:38)
[2018-06-02] MEDS: LOSARTAN 50 MG TAB PO SCH (08:19)
[2018-06-02 09:13] VITALS: BP 151/71; PULSE 65; TEMP 97.1
--- NOTE | 2018-06-02 12:15 | P.PN ---
Subjective Progress Note Date: 06/02/18 Principal diagnosis: TIA Patient is a pleasant 82-year-old female who is being evaluated by the neurology service on 06/01/2018 per the request of Dr. Damon for TIA. Patient has past medical history of atrial fibrillation, hypertension, myocardial infarction, CVA/TIA, and hypothyroidism. Patient states she woke up yesterday morning and was fine and throughout the day she started not to feel well. Patient states she had gone to the bathroom and lost her balance. Daughter was home and noticed patient was slurring her words and having right- sided weakness. EMS was called and patient was brought to [facility] for further evaluation. According to the chart, EMS states symptoms improved by the time they reached the patient. Patient denies any headache or visual changes. Patient takes warfarin in the home setting for atrial fibrillation. Patient's INR was 2.2 on admission. On admission vital signs were temperature 98.1, pulse rate 63, respiratory rate 18, blood pressure 160/67 , and O2 saturation was 90% on 2 L nasal cannula. Labs on admission showed elevated BUN of 27 with creatinine of 1.04. Lipid panel is within normal limits except for high HDL of 67. At the time of my evaluation, patient is resting comfortably in bed and appears to be in no acute distress. Patient denies any recurrence of symptoms. 06/02/18 Patient is seen and evaluated in the room at bedside; denies any further complaints of weakness or numbness or any speech difficulty; has been seen by neurology service and is recommended to have 2-D echocardiogram, bilateral carotid Dopplers and EEG; patient has been started on low-dose statin therapy with the plan to continue Coumadin and further recommendations after testing is completed Objective - Vital Signs Vital signs: Vital Signs Temp 97.1 F L 06/02/18 09:12 Pulse 65 06/02/18 09:12 Resp 18 06/02/18 09:12 BP 151/71 06/02/18 09:12 Pulse Ox 97 06/02/18 09:17 Intake & Output 06/01/18 06/02/18 06/02/18 18:59 06:59 18:59 Intake Total 638 240 150 Output Total 325 Balance 313 240 150 Weight 48 kg Intake: Oral 638 240 150 Output: Urine 325 Other: Voiding Method Toilet Toilet Toilet # Voids 2 1 - Exam - Constitutional General appearance: Present: average body habitus, cooperative, no acute distress - EENT Eyes: Present: anicteric sclerae, EOMI, PERRLA, normal appearance ENT: Present: hearing grossly normal, normal oropharynx Ears: bilateral: normal - Neck Neck: Present: normal ROM. Absent: lymphadenopathy, rigidity, thyromegaly Carotids: negative: bruit present Thyroid: bilateral: normal size, negative: enlarged, nodule - Respiratory Respiratory: bilateral: CTA, negative: rales, rhonchi, wheezing - Cardiovascular Rhythm: regular Heart sounds: normal: S1, S2 Abnormal Heart Sounds: Absent: systolic murmur, diastolic murmur - Gastrointestinal General gastrointestinal: Present: normal bowel sounds, soft. Absent: distended , organomegaly, tenderness - Genitourinary Genitourinary Comment(s): deferred - Integumentary Integumentary: Present: normal turgor. Absent: jaundiced, rash, ulcer - Neurologic Neurologic: Present: CNII-XII intact. Absent: focal deficits - Musculoskeletal Musculoskeletal: Present: gait normal, strength equal bilaterally - Psychiatric Psychiatric: Present: A&O x's 3, appropriate affect, intact judgment & insight - Labs CBC & Chem 7: 06/02/18 05:34 06/02/18 05:34 Labs: Abnormal Lab Results - Last 24 Hours (Table) 05/31/18 06/02/18 06/02/18 Range/Units 14:05 05:34 07:02 PT 22.2 H (9.0-12.0) sec INR 2.5 H (<1.2) Chloride 108 H (98-107) mmol/L BUN 22 H (7-17) mg/dL Total Protein 5.8 L (6.3-8.2) g/dL HDL Cholesterol 67 H (40-60) mg/dL Assessment and Plan Assessment: 1. TIA/CVA - We will admit the patient to selective care unit - Monitor neuro checks per unit protocol - We will order bilateral carotid Doppler studies and echocardiogram with bubble study - We will order TSH/free T4 along with vitamin B12 levels - Neurology is consulted and recommendations are reviewed and appreciated - Continue patient on aspirin 325 mg daily along with statin and Coumadin therapy - PT/OT/ORNAMENTER HAND consulted 2. Uncontrolled hypertension; stable now - Patient takes diltiazem 30 mg 3 times a day along with losartan 50 mg daily - We will resume both home medications and blood pressure monitoring closely - Adjust medications if needed 3. Mild AK I; resolved - Step patient on slow IV fluid hydration - Monitor strict STORM's along with renal function and electrolytes - Avoid hypotension and nephrotoxins 4. Hypothyroidism; on levothyroxine 75 MCG daily - TSH and free T4 are within normal limits 5. Chronic atrial fibrillation; patient remains on Cardizem and Coumadin for anticoagulation 6. CAD/history of [place]; stable; continue with current home medications 7. DVT prophylaxis; SCDs/systemic anticoagulation CODE STATUS; full code Time with Patient: Greater than 30
--- NOTE | 2018-06-02 13:27 | P.DS ---
Providers Date of admission: 05/31/18 14:56 Expected date of discharge: 06/02/18 Attending physician: Raji Damon Consults: 05/31/18 14:56 Consult Physician Routine Consulting Provider: Dhara Boyce Consult Reason/Comments: TIA Do you want consulting provider notified?: Yes Primary care physician: Mariano Barrios [facility] Course: Patient is a pleasant 82-year-old female who is being evaluated by the neurology service on 06/01/2018 per the request of Dr. Damon for TIA. Patient has past medical history of atrial fibrillation, hypertension, myocardial infarction, CVA/TIA, and hypothyroidism. Patient states she woke up yesterday morning and was fine and throughout the day she started not to feel well. Patient states she had gone to the bathroom and lost her balance. Daughter was home and noticed patient was slurring her words and having right- sided weakness. EMS was called and patient was brought to [facility] for further evaluation. According to the chart, EMS states symptoms improved by the time they reached the patient. Patient denies any headache or visual changes. Patient takes warfarin in the home setting for atrial fibrillation. Patient's INR was 2.2 on admission. On admission vital signs were temperature 98.1, pulse rate 63, respiratory rate 18, blood pressure 160/67 , and O2 saturation was 90% on 2 L nasal cannula. Labs on admission showed elevated BUN of 27 with creatinine of 1.04. Lipid panel is within normal limits except for high HDL of 67. At the time of my evaluation, patient is resting comfortably in bed and appears to be in no acute distress. Patient denies any recurrence of symptoms. 06/02/18 Patient is seen and evaluated in the room at bedside; denies any further complaints of weakness or numbness or any speech difficulty; has been seen by neurology service and is recommended to have 2-D echocardiogram, bilateral carotid Dopplers and EEG; patient has been started on low-dose statin therapy with the plan to continue Coumadin and further recommendations after testing is completed Patient was seen by neurology service and was cleared for discharge with a plan for patient to follow up with primary neurologist for altered testing and the reports Patient Condition at Discharge: Fair Plan - Discharge Summary Discharge Rx Participant: Yes New Discharge Prescriptions: New Aspirin 325 mg PO DAILY tab Continue clonazePAM [KlonoPIN] 0.5 mg PO TID PRN PRN Reason: Anxiety Levothyroxine Sodium [Synthroid] 75 mcg PO DAILY Warfarin [Coumadin] 5 mg PO MOWEFR Diltiazem HCl 30 mg PO TID Losartan Potassium [Cozaar] 50 mg PO DAILY Warfarin [[facility]mad[facility]] [facility] Discharge Medication List Levothyroxine Sodium [Synthroid] 75 mcg PO DAILY 12/03/17 [History] Warfarin [Coumadin] 5 mg PO MOWEFR 12/03/17 [History] clonazePAM [KlonoPIN] 0.5 mg PO TID PRN 12/03/17 [History] Diltiazem HCl 30 mg PO TID 12/30/17 [History] Losartan Potassium [Cozaar] 50 mg PO DAILY 05/31/18 [History] Warfarin [Coumadin] 2.5 mg PO SUTUTHSA 05/31/18 [History] Aspirin 325 mg PO DAILY tab 06/02/18 [Rx] Follow up Appointment(s)/Referral(s): Mariano Barrios MD [Primary Care Provider] - 06/10/18 1:30 pm (SATURDAY WITH JO ANN SWIFT) Patient Instructions/Handouts: Transient Ischemic Attack (GEN) Discharge Disposition: HOME SELF-CARE Pending Studies Pending Results: Echocardiogram Bilateral carotid Doppler EEG
--- NOTE | 2018-06-02 13:43 | US ---
EXAMINATION TYPE: US carotid duplex BILAT DATE OF EXAM: 06/02/2018 COMPARISON: US 11/01/16 CLINICAL HISTORY: 82-year-old female TIA. TECHNIQUE: Carotid duplex ultrasound examination. Indirect Doppler criteria was utilized. FINDINGS: EXAM MEASUREMENTS: RIGHT: Peak Systolic Velocity (PSV) cm/sec ----- Right CCA: 65.1 ----- Right ICA: 106.0 ----- Right ECA: 80.1 ICA/CCA ratio: 1.6 RIGHT: End Diastole cm/sec ----- Right CCA: 10.3 ----- Right ICA: 24.5 ----- Right ECA: 11.5 LEFT: Peak Systolic Velocity (PSV) cm/sec ----- Left CCA: 59.2 ----- Left ICA: 95.1 ----- Left ECA: 59.2 ICA/CCA ratio: 1.6 LEFT: End Diastole cm/sec ----- Left CCA: 20.8 ----- Left ICA: 22.5 ----- Left ECA: 4.3 VERTEBRALS (direction of flow): Right Vertebral: Antegrade Left Vertebral: Antegrade Rhythm: Arrhythmia Fat Pressroom Worker notes: Soft and calcified plaque noted bilaterally. Tortuous ICA bilaterally. No signific ant stenosis seen. IMPRESSION: No hemodynamically significant stenosis appreciated in either internal carotid artery. Criteria for Assigning % of Stenosis / Diameter reduction (Estimation based on the indirect measurements of the internal carotid artery velocities (ICA PSV). 1. Normal (no stenosis)=ICA PSV < 125 cm/s: ratio < 2.0: ICA EDV<40 cm/s. 2. Less than 50% stenosis=ICA PSV < 125 cm/s: ratio < 2.0: ICA EDV<40 cm/s. 3. 50 to 69% stenosis=ICA PSV of 125 to 230 cm/s: ration 2.0 ? 4.0: ICA EDV 40-100 cm/s. 4. Greater than 70% stenosis to near occlusion= ICA PSV > 230 cm/s: ratio > 4.0: ICA EDV > 100 cm/s. 5. Near occlusion= ICA PSV velocities may be low or undetectable: variable ratio and ICA EDV. 6. Total occlusion=unable to detect flow.
--- NOTE | 2018-06-02 15:50 | EEG ---
ELECTROENCEPHALOGRAM REPORT DATE OF SERVICE: 06/02/2018 REASON FOR TESTING: Transient ischemic attack. DESCRIPTION OF THE PROCEDURE: This EEG was performed using a 21-channel digital electroencephalograph, following international 10-20 system. DESCRIPTION OF THE RECORDING: From the beginning of the tracing, and with the patient's eyes closed, the background rhythm was mostly consisting of 10 to 11 Hz alpha frequency in the posterior occipital leads. No obvious asymmetry is seen. Photic stimulation was performed with a minimal driving response seen. No pathological waves were elicited. Hyperventilation was not performed. The patient remains awake throughout the tracing. No epileptiform discharges were seen. Her EKG lead showed a regular rate and rhythm. INTERPRETATION: This awake EEG can be considered within normal limits. There was no asymmetry seen. No epileptiform discharges were noticed. The absence of epileptiform discharges does not rule out the diagnosis of epilepsy; therefore clinical correlation is recommended. MMKAROL / ARASH: [id number] /
--- NOTE | 2018-06-02 17:55 | ECHOF ---
Referral Reason:TIA MEASUREMENTS -------- HEIGHT: 152.4 cm WEIGHT: 47.6 kg BP: 140/71 RVIDd: 2.7 cm (< 3.3) IVSd: 1.1 cm (0.6 - 1.1) LVIDd: 3.5 cm (3.9 - 5.3) LVPWd: 1.1 cm (0.6 - 1.1) IVSs: 1.5 cm LVIDs: 2.2 cm LVPWs: 1.3 cm LA Diam: 3.1 cm (2.7 - 3.8) LAESV Index (A-L): 22.71 ml/m Ao Diam: 2.8 cm (2.0 - 3.7) AV Cusp: 2.0 cm (1.5 - 2.6) MV EXCURSION: 15.098 mm (> 18.000) MV EF SLOPE: 46 mm/s (70 - 150) EPSS: 0.2 cm MV E Javi: 0.84 m/s MV DecT: 156 ms MV A Javi: 0.64 m/s MV E/A Ratio: 1.31 AR PHT: 498 ms RAP: 5.00 mmHg RVSP: 28.12 mmHg FINDINGS -------- Sinus rhythm. This was a technically good study. The left ventricular size is normal. Left ventricular wall thickness is normal. Overall left vent ricular systolic function is normal with, an EF between 60 - 65 %. The right ventricle is normal in size. Normal LA size by volume 22+/-6 ml/m2. The right atrium is normal in size. There is moderate aortic regurgitation. The mitral valve is normal. Mild tricuspid regurgitation present. Right ventricular systolic pressure is normal at < 35 mmHg. Trace/mild (physiologic) pulmonic regurgitation. The aortic root size is normal. Normal inferior vena cava with normal inspiratory collapse consistent with estimated right atrial pre ssure of 5 mmHg. There is no pericardial effusion. CONCLUSIONS -------- 1. Sinus rhythm. 2. This was a technically good study. 3. The left ventricular size is normal. 4. Left ventricular wall thickness is normal. 5. Overall left ventricular systolic function is normal with, an EF between 60 - 65 %. 6. The right ventricle is normal in size. 7. Normal LA size by volume 22+/-6 ml/m2. 8. The right atrium is normal in size. 9. There is moderate aortic regurgitation. 10. The mitral valve is normal. 11. Mild tricuspid regurgitation present. 12. Right ventricular systolic pressure is normal at < 35 mmHg. 13. Trace/mild (physiologic) pulmonic regurgitation. 14. The aortic root size is normal. 15. Normal inferior vena cava with normal inspiratory collapse consistent with estimated right atrial pressure of 5 mmHg. 16. There is no pericardial effusion. CHILDREN'S LITERATURE PROFESSOR: Bridgette Mathews RDCS
[2018-06-02] MEDS ORDERED: WARFARIN 5 MG TAB PO SCH (18:00)
== END 2018-06-02 15:56 | disposition home or self-care (01) ==
LOC: EC 13:32 → 6SEL 14:56
PROVIDERS: ADMIT Internal Medicine; ATTEND Internal Medicine
DX: G45.9 Transient cerebral ischemic attack, unspecified (principal); I48.2 Chronic atrial fibrillation; I10 Essential (primary) hypertension; N17.9 Acute kidney failure, unspecified; I25.2 Old myocardial infarction; E03.9 Hypothyroidism, unspecified; I25.10 Atherosclerotic heart disease of native coronary artery without angina pectoris; Z86.73 Personal history of transient ischemic attack (TIA), and cerebral infarction without residual deficits; Z95.5 Presence of coronary angioplasty implant and graft; Z79.01 Long term (current) use of anticoagulants; Z79.890 Hormone replacement therapy; Z79.899 Other long term (current) drug therapy; Z88.5 Allergy status to narcotic agent; R29.6 Repeated falls
CPT/HCPCS: 99285; 36415; 94760; 95816; 93005; 97161; 80061; 80053 ×3; 84443; 82607; 82550; 82553; 83735 ×2; 84484; 85025; 85027 ×2; 85610 ×3; 85730; 83090; 71046; 93880; 70450; G0378 ×3; C8929; 93306

== ENCOUNTER → 2018-07-21 | Day surgery (SDC) | payer MEDICARE, BC ==
[2018-07-18 11:00] VITALS: BMI 18.3
[~2018-07-21] MED LIST changes: +IV FLUID CONTINUATION 1,000 ML IV ONE; +LACTATED RINGERS 1,000 ML IV ONE; -LACTATED RINGERS 1,000 ML IV SCH; +LIDOCAINE 1% 20 ML VIAL (10MG/ML) FOR IV START INTRADERMA ONE
[2018-07-21 09:00] VITALS: RESP 18; TEMP 97.4
[2018-07-21 09:31] LABS: INR 1.1 (<1.2); Prothrombin Time 10.5 sec (9.0-12.0)
--- NOTE | 2018-07-21 09:57 | P.PCN ---
Date of Procedure: 07/21/18 Procedure(s) Performed: PREOP DIAGNOSIS: 1- Lumbar postlaminectomy syndrome POSTOP DIAGNOSIS:1- Lumbar postlaminectomy syndrome PROCEDURE: Caudal epidural steroid injection with epidurolysis and epidurogram under fluoroscopic guidance ANESTHESIA: Local with 1% lidocaine 3 ml ,and moderate sedation, with Versed 1 mg and fentanyl 50 g EBL: Minimal. PROCEDURE INDICATION: The patient with post-laminectomy syndrome with low back pain and radiculopathy radiating down in both legs, here for a caudal epidural steroid injection with epidurolysis. PROCEDURE DESCRIPTION: The patient was seen and identified in the preoperative area. Risks, benefits, complications, and alternatives were discussed with the patient. The patient agreed to proceed with the procedure and signed the consent. IV was started, and vital signs were stable. Patient was taken to the OR and time out was completed. The patient was placed in the prone position on procedure table and a pillow was placed under the abdomen to reduce lumbar lordosis. The lumbosacral area was prepped and draped in the usual sterile fashion. Vital signs were closely monitored during the procedure. lateral view and the anterior-posterior plates of the sacrum were identified with infiltration of the area overlying the sacral hiatus with 1% lidocaine .A 17 gauge RK epidural needle was used to advance through the sacral hiatus into the caudal epidural space. Omnipaque 180 dye. 2cc was injected and the position of the needle was verified to be in the midline. A Racz catheter was introduced into the epidural space and was advanced towards the L5-S1 interspace under direct fluoroscopic guidance. Multiple passes were made with the catheter for lysis of epidural adhesions. Depomedrol 40 mg with 3ml of preservative free Lidocaine 1% and 5 ml of preservative free normal saline was injected slowly. Additional spread was seen to L4 under fluoroscopy. The needle and the catheter were withdrawn intact. EPIDUROGRAM: Omnipaque 180 mg dye 2 ml was injected with spread of the dye into the caudal epidural space and with spread cutoff at L5 prior to epidurolysis. Post epidurolysis dye 2 ml was injected and spread was seen to L4- 5.There was further spread of the solution together with the dye above the L3 COMPLICATIONS: None. DISPOSITION / PLANS: The patient was placed in a supine position and transferred to the recovery area in a stable condition for observation and was discharged from the recovery room after meeting discharge criteria. Home discharge instructions given to the patient by the staff. The patient was reexamined prior to discharge. The patient will schedule a follow up in the clinic in 2-4 weeks.
[2018-07-21 10:21] VITALS: BP 167/72; PULSE 68
--- NOTE | 2018-07-21 10:34 | FL ---
EXAMINATION TYPE: FL guided pain mgmt statistic DATE OF EXAM: 07/21/2018 CLINICAL HISTORY: Sacral pain. TECHNIQUE: Fluoroscopy. COMPARISON: None. FINDINGS: Fluoroscopic guidance was provided during pain relief procedure performed by Dr. Venegas . A total of 3 seconds of fluoroscopic time was utilized during the procedure and 3 spot images are acquired. Images acquired shows needle localization at level of sacrum with contrast injection. IMPRESSION: As Above.
== END | disposition home or self-care (01) ==
LOC: ORPAIN 07:59
PROVIDERS: ATTEND Specialist
DX: M96.1 Postlaminectomy syndrome, not elsewhere classified (principal); M54.16 Radiculopathy, lumbar region; Z88.5 Allergy status to narcotic agent; Z88.8 Allergy status to other drugs, medicaments and biological substances; Z79.01 Long term (current) use of anticoagulants; I48.91 Unspecified atrial fibrillation; Z86.73 Personal history of transient ischemic attack (TIA), and cerebral infarction without residual deficits; I25.2 Old myocardial infarction
CPT/HCPCS: 85610; 62264; J2250; J1030; J3010; Q9966; C1894

== ENCOUNTER 2019-01-08 12:13 | Emergency (ER) | payer MEDICARE, BC ==
[2019-01-08 12:18] VITALS: TEMP 97.8
[2019-01-08] MEDS ORDERED: SODIUM CHLORIDE 0.9% 1,000 ML IV STA (12:21)
--- NOTE | 2019-01-08 12:22 | ED ---
Altered Mental Status HPI - General Chief Complaint: Altered Mental Status Stated Complaint: dizziness/not well Time Seen by Provider: 01/08/19 12:21 Source: patient Mode of arrival: wheelchair Limitations: no limitations - History of Present Illness MD Complaint: altered mental status -: minutes(s) Severity: mild Consistency of Symptoms: unknown (Resolved) Context: history of similar presentation Associated Symptoms: other (No other neurological deficit) - Related Data Home Medications Medication Instructions Recorded Confirmed Levothyroxine Sodium [Synthroid] 75 mcg PO QAM 12/03/17 01/08/19 Warfarin [Coumadin] 5 mg PO SUTH 12/03/17 01/08/19 clonazePAM [KlonoPIN] 0.5 mg PO TID PRN 12/03/17 01/08/19 Diltiazem HCl 30 mg PO TID 12/30/17 01/08/19 Losartan Potassium [Cozaar] 50 mg PO DAILY 05/31/18 01/08/19 Warfarin [Coumadin] 2.5 mg PO [id number] 05/31/18 01/08/19 Aspirin EC [Ecotrin Low Dose] 81 mg PO DAILY 01/08/19 01/08/19 Allergies Allergy/AdvReac Type Severity Reaction Status Date / Time amiodarone AdvReac Unknown Verified 01/08/19 13:02 apixaban [From Eliquis] AdvReac Unknown Verified 01/08/19 13:02 hydrocodone [From [place]] AdvReac Confusion Verified 01/08/19 13:02 Review of Systems ROS Statement: Those systems with pertinent positive or pertinent negative responses have been documented in the HPI. ROS Other: All systems not noted in ROS Statement are negative. Past Medical History Past Medical History: Atrial Fibrillation, CVA/TIA, Hypertension, Myocardial Infarction ([place]), Thyroid Disorder Additional Past Medical History / Comment(s): frequent falls Last Myocardial Infarction Date:: 2011 History of Any Multi-Drug Resistant Organisms: None Reported Past Surgical History: Bladder Surgery, Heart Catheterization With Stent, Hysterectomy, Orthopedic Surgery Additional Past Surgical History / Comment(s): surgery X2 for trigeminal neuralgia Past Anesthesia/Blood Transfusion Reactions: Postoperative Nausea & Vomiting ( PONV) Additional Past Anesthesia/Blood Transfusion Reaction / Comment(s): patient has never received a blood transfusion Date of Last Stent Placement:: 2011 Past Psychological History: No Psychological Hx Reported Smoking Status: Never smoker Past Alcohol Use History: None Reported Past Drug Use History: None Reported - Past Family History Mother Family Medical History: Myocardial Infarction ([place]) Father Family Medical History: Congestive Heart Failure (CHF) Sister(s) Family Medical History: Coronary Artery Disease (CAD), Deep Vein Thrombosis (DVT ) Brother(s) Family Medical History: Congestive Heart Failure (CHF) General Exam - General Exam Comments Initial Comments: NIH of 0 Limitations: no limitations General appearance: alert, in no apparent distress Head exam: Present: atraumatic, normocephalic, normal inspection Eye exam: Present: normal appearance, PERRL, EOMI. Absent: scleral icterus, conjunctival injection, periorbital swelling ENT exam: Present: normal exam, mucous membranes moist Neck exam: Present: normal inspection. Absent: tenderness, meningismus, lymphadenopathy Respiratory exam: Present: normal lung sounds bilaterally. Absent: respiratory distress, wheezes, rales, rhonchi, stridor Cardiovascular Exam: Present: regular rate, normal rhythm, normal heart sounds. Absent: systolic murmur, diastolic murmur, rubs, gallop, clicks GI/Abdominal exam: Present: soft, normal bowel sounds. Absent: distended, tenderness, guarding, rebound, rigid Extremities exam: Present: normal inspection, full ROM, normal capillary refill. Absent: tenderness, pedal edema, joint swelling, calf tenderness Back exam: Present: normal inspection Neurological exam: Present: alert, oriented X3, CN II-XII intact Psychiatric exam: Present: normal affect, normal mood Skin exam: Present: warm, dry, intact, normal color. Absent: rash Course Vital Signs 01/08/19 01/08/19 01/08/19 12:14 12:24 12:30 Temperature 97.8 F Pulse Rate 66 129 H 124 H Respiratory 18 27 H 18 Rate Blood Pressure 121/76 164/99 O2 Sat by Pulse 97 97 Oximetry 01/08/19 01/08/19 01/08/19 13:00 13:30 14:00 Temperature Pulse Rate 126 H 121 H Respiratory 15 16 Rate Blood Pressure 172/100 161/111 167/102 O2 Sat by Pulse 98 99 Oximetry 01/08/19 01/08/19 14:30 15:00 Temperature Pulse Rate 67 68 Respiratory 14 14 Rate Blood Pressure 134/90 176/90 O2 Sat by Pulse 98 99 Oximetry - Reevaluation(s) Reevaluation #1: 01/08/19 16:08 Medical record is reviewed Reevaluation #2: 01/08/19 16:08 Patient remains without neurological symptoms Reevaluation #3: 01/08/19 16:08 Patient does not want to be transferred to [facility] for neurologic evaluation Medical Decision Making - Medical Decision Making 83 female the ER with TIA history of CVA and TIA. History of A. fib patient was in A. fib with RVR which is now rate controlled, she did have again today symptoms does not want transfer to [facility], would like to follow-up with Dr. Garcia on an outpatient basis - Lab Data Result diagrams: 01/08/19 12:45 01/08/19 12:45 Lab Results 01/08/19 01/08/19 01/08/19 Range/Units 12:45 12:45 12:45 WBC 6.5 (3.8-10.6) k/uL RBC 4.74 (3.80-5.40) m/uL Hgb 14.1 (11.4-16.0) gm/dL Hct 42.5 (34.0-46.0) % MCV 89.8 (80.0-100.0) fL MCH 29.7 (25.0-35.0) pg MCHC 33.1 (31.0-37.0) g/dL RDW 13.5 (11.5-15.5) % Plt Count 261 (150-450) k/uL Neutrophils % 62 % Lymphocytes % 26 % Monocytes % 5 % Eosinophils % 5 % Basophils % 0 % Neutrophils # 4.0 (1.3-7.7) k/uL Lymphocytes # 1.7 (1.0-4.8) k/uL Monocytes # 0.3 (0-1.0) k/uL Eosinophils # 0.4 (0-0.7) k/uL Basophils # 0.0 (0-0.2) k/uL PT (9.0-12.0) sec INR (<1.2) APTT (22.0-30.0) sec Sodium 144 (137-145) mmol/L Potassium 4.0 (3.5-5.1) mmol/L Chloride 114 H (98-107) mmol/L Carbon Dioxide 22 (22-30) mmol/L Anion Gap 8 mmol/L BUN 16 (7-17) mg/dL Creatinine 0.61 (0.52-1.04) mg/dL Est GFR (CKD-EPI)AfAm >90 (>60 ml/min/1.73 sqM) Est GFR (CKD-EPI)NonAf 84 (>60 ml/min/1.73 sqM) Glucose 88 (74-99) mg/dL Calcium 10.0 (8.4-10.2) mg/dL Total Bilirubin 0.7 (0.2-1.3) mg/dL AST 38 H (14-36) U/L ALT 45 (9-52) U/L Alkaline Phosphatase 161 H (38-126) U/L Total Creatine Kinase 79 (30-135) U/L CK-MB (CK-2) 1.6 (0.0-2.4) ng/mL CK-MB (CK-2) Rel Index 2.0 Troponin I <0.012 (0.000-0.034) ng/mL Total Protein 6.9 (6.3-8.2) g/dL Albumin 4.1 (3.5-5.0) g/dL 01/08/19 Range/Units 12:45 WBC (3.8-10.6) k/uL RBC (3.80-5.40) m/uL Hgb (11.4-16.0) gm/dL Hct (34.0-46.0) % MCV (80.0-100.0) fL MCH (25.0-35.0) pg MCHC (31.0-37.0) g/dL RDW (11.5-15.5) % Plt Count (150-450) k/uL Neutrophils % % Lymphocytes % % Monocytes % % Eosinophils % % Basophils % % Neutrophils # (1.3-7.7) k/uL Lymphocytes # (1.0-4.8) k/uL Monocytes # (0-1.0) k/uL Eosinophils # (0-0.7) k/uL Basophils # (0-0.2) k/uL PT 18.6 H (9.0-12.0) sec INR 1.9 H (<1.2) APTT 31.7 H (22.0-30.0) sec Sodium (137-145) mmol/L Potassium (3.5-5.1) mmol/L Chloride (98-107) mmol/L Carbon Dioxide (22-30) mmol/L Anion Gap mmol/L BUN (7-17) mg/dL Creatinine (0.52-1.04) mg/dL Est GFR (CKD-EPI)AfAm (>60 ml/min/1.73 sqM) Est GFR (CKD-EPI)NonAf (>60 ml/min/1.73 sqM) Glucose (74-99) mg/dL Calcium (8.4-10.2) mg/dL Total Bilirubin (0.2-1.3) mg/dL AST (14-36) U/L ALT (9-52) U/L Alkaline Phosphatase (38-126) U/L Total Creatine Kinase (30-135) U/L CK-MB (CK-2) (0.0-2.4) ng/mL CK-MB (CK-2) Rel Index Troponin I (0.000-0.034) ng/mL Total Protein (6.3-8.2) g/dL Albumin (3.5-5.0) g/dL - EKG Data -: EKG Interpreted by Me (EKG shows A. fib with RVR rate 125, QRS 76, QTc 453) - Radiology Data Radiology results: report reviewed (CT brain CTA had not negative for acute disease), image reviewed Disposition Clinical Impression: Atrial fibrillation with rapid ventricular response, Transient cerebral ischemia Disposition: HOME SELF-CARE Condition: Undetermined Instructions (If sedation given, give patient instructions): Transient Ischemic Attack (ED) Is patient prescribed a controlled substance at d/c from ED?: No Referrals: Mariano Barrios MD [Primary Care Provider] - 1-2 days
[2019-01-08 13:04] LABS: Basophils % (A) 0 %; Eosinophils # (A) 0.4 k/uL (0-0.7); Eosinophils % (A) 5 %; HCT 42.5 % (34.0-46.0); HGB 14.1 gm/dL (11.4-16.0); Lymphocytes # (A) 1.7 k/uL (1.0-4.8); Lymphocytes % (A) 26 %; MCH 29.7 pg (25.0-35.0); MCHC 33.1 g/dL (31.0-37.0); MCV 89.8 fL (80.0-100.0); Monocytes # (A) 0.3 k/uL (0-1.0); Monocytes % (A) 5 %; Neutrophils % (A) 62 %; Platelet Count 261 k/uL (150-450); RBC 4.74 m/uL (3.80-5.40); RDW 13.5 % (11.5-15.5); WBC 6.5 k/uL (3.8-10.6)
--- NOTE | 2019-01-08 13:04 | XR ---
EXAMINATION TYPE: XR chest 2V DATE OF EXAM: 01/08/2019 COMPARISON: 05/31/2018 TECHNIQUE: PA and lateral views submitted. HISTORY: Confusion FINDINGS: The lungs are clear and there is no pneumothorax, pleural effusion, or focal pneumonia. The heart i s enlarged. Hyperinflation noted. Degenerative changes of the spine. No overt failure. No pleural thi ckening. Diffuse osteopenia. Arthropathy of the shoulders. IMPRESSION: 1. No acute process.
[2019-01-08 13:13] LABS: INR 1.9 (<1.2); Partial Thromboplastin Time 31.7 sec (22.0-30.0); Prothrombin Time 18.6 sec (9.0-12.0)
[2019-01-08 13:24] LABS: ALT 45 U/L (9-52); AST 38 U/L (14-36); Albumin 4.1 g/dL (3.5-5.0); Alkaline Phosphatase 161 U/L (38-126); Anion Gap 8 mmol/L; Blood Urea Nitrogen 16 mg/dL (7-17); Carbon Dioxide 22 mmol/L (22-30); Chloride 114 mmol/L (98-107); Glucose 88 mg/dL (74-99); Sodium 144 mmol/L (137-145); Total Bilirubin 0.7 mg/dL (0.2-1.3); Total Protein 6.9 g/dL (6.3-8.2)
[2019-01-08 13:26] LABS: Creatine Kinase 79 U/L (30-135)
[2019-01-08] MEDS ORDERED: DILTIAZEM 125 MG in SODIUM CHLORIDE 0.9% 100 ML IV SCH (13:30)
[2019-01-08 13:38] LABS: Creatine Kinase MB 1.6 ng/mL (0.0-2.4); Troponin I <0.012 ng/mL (0.000-0.034)
--- NOTE | 2019-01-08 14:00 | CT ---
EXAMINATION TYPE: CT brain wo con for TPA DATE OF EXAM: 01/08/2019 COMPARISON: Prior head CT dated 05/31/2018 HISTORY: Dizziness, disorientation CT DLP: 844.1 mGycm Automated exposure control for dose reduction was used. Helical imaging through the brain. FINDINGS: Periventricular white matter low-attenuation is again seen. Low-attenuation in the external capsule o n the left likely is due to chronic ischemia. There is cortical atrophy which is likely age-related. There is no hemorrhage or hydrocephalus. Cerebral vascular calcifications are present. Orbits show sy mmetric appearance. Postop changes are noted to the posterior fossa laterally on the left. IMPRESSION: STABLE EXAM, NO ACUTE ABNORMALITY.
[2019-01-08] MEDS: DILTIAZEM DRIP BOLUS FROM BAG 1 MG SOLN IV ONE ×2 (14:08→16:00)
--- NOTE | 2019-01-08 14:45 | CT ---
EXAMINATION TYPE: CT angio head neck DATE OF EXAM: 01/08/2019 HISTORY: Dizziness, disorientation COMPARISON: Previous dated 10/31/2016 CT DLP: 263.6 mGycm. Automated Exposure Control for Dose Reduction was Utilized. TECHNIQUE: CTA scan of the neck and brain is performed with IV Contrast, patient injected with 65 mL of Isovue 370, axial images are obtained, coronal and sagittal reformatted images are reviewed. Thre e-D reconstructed images are created on an independent workstation and reviewed. FINDINGS: Carotid/Vascular Structures: Patent. No significant stenosis of the proximal internal carotid arterie s, no aneurysm or dissection. There is a three-vessel arch with origin of the left vertebral artery f rom the arch. Atheromatous changes suspected within the eyak of Block. Other: Apical pleural thickening present in the hemithoraces, there is calcification on the left. Deg enerative disc changes in the visualized spine. IMPRESSION: No significant abnormality is seen.
[2019-01-08 15:30] VITALS: BP 176/90; PULSE 68; RESP 14
[2019-01-08] MEDS ORDERED: ASPIRIN 81 MG PO STA (15:46)
== END 2019-01-08 16:08 | disposition home or self-care (01) ==
LOC: EC 12:13
DX: G45.9 Transient cerebral ischemic attack, unspecified (principal); I48.91 Unspecified atrial fibrillation; R29.700 NIHSS score 0; I10 Essential (primary) hypertension; I25.2 Old myocardial infarction; E07.9 Disorder of thyroid, unspecified; Z82.49 Family history of ischemic heart disease and other diseases of the circulatory system; Z88.5 Allergy status to narcotic agent; Z88.8 Allergy status to other drugs, medicaments and biological substances; Z79.01 Long term (current) use of anticoagulants; Z79.82 Long term (current) use of aspirin; Z79.890 Hormone replacement therapy; Z79.899 Other long term (current) drug therapy; Z95.5 Presence of coronary angioplasty implant and graft; Z98.890 Other specified postprocedural states; Z53.8 Procedure and treatment not carried out for other reasons
CPT/HCPCS: 36415; 93005; 80053; 82550; 82553; 84484; 85025; 85610; 85730; 71046; 70496; 70450; 70498; 99285; 96365; Q9967

== ENCOUNTER → 2019-05-29 | Outpatient (CLI) | payer MEDICARE, BC ==
--- NOTE | 2019-05-29 12:55 | XR ---
EXAMINATION TYPE: XR chest 2V DATE OF EXAM: 05/29/2019 COMPARISON: 01/08/2019 HISTORY: 83-year-old female with cough TECHNIQUE: Frontal and lateral views FINDINGS: Heart borderline enlarged. Mild hyperinflation. No consolidation or pleural effusion. IMPRESSION: Borderline heart size and COPD. No acute process seen.
== END | disposition home or self-care (01) ==
LOC: RADXRMAIN 10:09
PROVIDERS: ATTEND Internal Medicine Geriatric Medicine
DX: J44.9 Chronic obstructive pulmonary disease, unspecified (principal)
CPT/HCPCS: 71046

== ENCOUNTER → 2019-12-17 | Outpatient (CLI) | payer MEDICARE, BC ==
--- NOTE | 2019-12-17 09:18 | US ---
EXAMINATION TYPE: US abdomen complete DATE OF EXAM: 12/17/2019 COMPARISON: NONE CLINICAL HISTORY: General abdominal pain R10.84. Right side pain. No surgeries. EXAM MEASUREMENTS: Liver Length: 11.4 cm Gallbladder Wall: 0.2 cm Spleen: 10.4 cm Right Kidney: 8.2 x 4.1 x 3.7 cm Left Kidney: 8.2 x 4.2 x 3.6 cm Pancreas: Tail obscured by overlying bowel gas, limited visualization Liver: wnl Gallbladder: Nonshadowing nonmobile echogenic focus seen adjacent to wall in fundal region = 0.5 cm. Evidence for sonographic Hatch's sign: neg CBD: Not visualized Spleen: Echogenic focus with shadow visualized at vessel, likely atherosclerosis. Right Kidney: Within normal limits Left Kidney: Within normal limits Upper IVC: wnl Abd Aorta: Atherosclerotic changes seen, no AAA visualized The liver is homogenous. The intrahepatic portion of the IVC and proximal abdominal aorta are within normal limits. There is no evidence of cholelithiasis. Common bile duct is unremarkable. The visu alized portions of the pancreas are homogenous. The spleen is unremarkable. Kidneys are symmetric a nd free of hydronephrosis. No renal lesions are seen. IMPRESSION: 1. Nonshadowing probable gallbladder polyp measuring 5 mm in the fundus. Annual surveillance with ult rasound is recommended for polyps of ascites. 2. No sonographic evidence of acute cholecystitis. 3. Limited visualization of the pancreas.
== END | disposition home or self-care (01) ==
LOC: RADUSWWP 07:39
PROVIDERS: ATTEND Internal Medicine Geriatric Medicine
DX: R10.84 Generalized abdominal pain (principal)
CPT/HCPCS: 76700

== ENCOUNTER → 2020-04-01 | Outpatient (CLI) | payer MEDICARE, BC ==
--- NOTE | 2020-04-01 11:31 | NM ---
EXAMINATION TYPE: NM hepatobiliary w EF DATE OF EXAM: 04/01/2020 COMPARISON: NONE HISTORY: Generalized abdominal pain TECHNIQUE: After the intravenous administration of 4.8 mCi Tc 99m Mebrofenin hepatobiliary scintigrap hy is performed. Immediate images post injection. FINDINGS: There is satisfactory initial accumulation of tracer by the liver. The gallbladder is visualized wit hin 12 minutes. At one hour 8 ounces of oral ensure plus is given to mimic CCK and gallbladder ejecti on fraction is calculated at 86 %, borderline elevated. Therefore there is no scintigraphic evidence of cystic or common bile duct obstruction to suggest acute cholecystitis or gallbladder dyskinesia. IMPRESSION: 1. No scintigraphic evidence of acute or chronic cholecystitis. 2. Borderline elevated biliary ejection fraction that may represent biliary hyperkinesia.
== END | disposition home or self-care (01) ==
LOC: RADNMMAIN 08:51
PROVIDERS: ATTEND Internal Medicine Geriatric Medicine
DX: R10.84 Generalized abdominal pain (principal)
CPT/HCPCS: 78226; A9537

== ENCOUNTER 2020-06-22 06:49 | Observation (INO) | payer MEDICARE, BC ==
[2020-06-22] MEDS ORDERED: SODIUM CHLORIDE 0.9% 1,000 ML IV STA ×2 (07:00)
[2020-06-22] MEDS ORDERED: ONDANSETRON 4 MG/2 ML VIAL IVP STA (07:00)
--- NOTE | 2020-06-22 07:10 | ED ---
General Adult HPI - General Source: patient, EMS, RN notes reviewed, old records reviewed Mode of arrival: EMS Limitations: physical limitation <Penelope Bello - Last Filed: 06/22/20 09:21> <Barrie Garcia - Last Filed: 06/22/20 15:14> - General Chief complaint: Headache Stated complaint: Altered Mental Status Time Seen by Provider: 06/22/20 06:50 - History of Present Illness Initial comments: Patient is a 4-year-old female who presents the emergency department today for evaluation for 3 days of progressive headache. She reports that she doesn't have a history of headaches like this in the past. Patient called EMS she's been more confused. According to EMS Patient stated it was 1989 and Abe Harmon is president. denies any falls. Patient reports that she is nauseated this time. She's not been eating or drinking for the past 2 days due to this persistent headache. She reports that she took Tylenol and Midol 2 Days ago which did not help with her headache. (Penelope Bello) - Related Data Home Medications Medication Instructions Recorded Confirmed Levothyroxine Sodium [Synthroid] 75 mcg PO QAM 12/03/17 06/22/20 Warfarin [Coumadin] 5 mg PO W/SUPPER 12/03/17 06/22/20 DULoxetine HCL [Cymbalta] 30 mg PO DAILY 06/22/20 06/22/20 amLODIPine [Norvasc] 5 mg PO DAILY 06/22/20 06/22/20 Allergies Allergy/AdvReac Type Severity Reaction Status Date / Time amiodarone Allergy Unknown Verified 06/22/20 08:05 apixaban [From Eliquis] Allergy Unknown Verified 06/22/20 08:05 hydrocodone [From [place]] AdvReac Confusion Verified 06/22/20 08:05 Review of Systems ROS Other: All systems not noted in ROS Statement are negative. <Penelope Bello - Last Filed: 06/22/20 09:21> ROS Other: All systems not noted in ROS Statement are negative. <Barrie Garcia - Last Filed: 06/22/20 15:14> ROS Statement: Those systems with pertinent positive or pertinent negative responses have been documented in the HPI. Past Medical History Past Medical History: Atrial Fibrillation, CVA/TIA, Hypertension, Myocardial Infarction (PA), Thyroid Disorder Additional Past Medical History / Comment(s): frequent falls Last Myocardial Infarction Date:: 2011 History of Any Multi-Drug Resistant Organisms: None Reported Past Surgical History: Bladder Surgery, Heart Catheterization With Stent, Hysterectomy, Orthopedic Surgery Additional Past Surgical History / Comment(s): surgery X2 for trigeminal neuralgia Past Anesthesia/Blood Transfusion Reactions: Postoperative Nausea & Vomiting (PONV) Additional Past Anesthesia/Blood Transfusion Reaction / Comment(s): patient has never received a blood transfusion Date of Last Stent Placement:: 2011 Past Psychological History: No Psychological Hx Reported Smoking Status: Never smoker Past Alcohol Use History: None Reported Past Drug Use History: None Reported - Past Family History Mother Family Medical History: Myocardial Infarction (PA) Father Family Medical History: Congestive Heart Failure (CHF) Sister(s) Family Medical History: Coronary Artery Disease (CAD), Deep Vein Thrombosis (DVT) Brother(s) Family Medical History: Congestive Heart Failure (CHF) <Penelope Bello - Last Filed: 06/22/20 09:21> General Exam Limitations: physical limitation General appearance: alert, in no apparent distress Head exam: Present: atraumatic, normocephalic, normal inspection Eye exam: Present: normal appearance, PERRL, EOMI. Absent: scleral icterus, conjunctival injection, periorbital swelling ENT exam: Present: normal exam, normal oropharynx, mucous membranes moist Neck exam: Present: normal inspection. Absent: tenderness, meningismus, lymphadenopathy Respiratory exam: Present: normal lung sounds bilaterally. Absent: respiratory distress, wheezes, rales, rhonchi, stridor Cardiovascular Exam: Present: regular rate, normal rhythm, normal heart sounds. Absent: systolic murmur, diastolic murmur, rubs, gallop, clicks GI/Abdominal exam: Present: soft, normal bowel sounds. Absent: distended, tenderness, guarding, rebound, rigid Extremities exam: Present: normal inspection, full ROM, normal capillary refill. Absent: tenderness, pedal edema, joint swelling, calf tenderness Back exam: Present: normal inspection Neurological exam: Present: alert, altered Expanded Patient oriented to: Present: person Speech: Present: fluid speech Cranial nerves: EOM's Intact: Normal Cerebellar function: Finger to Nose: Normal Upper motor neuron: Pronator Drift: Normal Sensory exam: Upper Extremity Light Touch: Normal, Lower Extremity Light Touch: Normal Motor strength exam: RUE: 5, LUE: 5, RLE: 5, LLE: 5 Eye Response: (4) open spontaneously Motor Response: (6) obeys commands Verbal Response: (4) confused conversation [place] Total: 14 Psychiatric exam: Present: normal affect, normal mood Skin exam: Present: warm, dry, intact, normal color. Absent: rash <Penelope Bello - Last Filed: 06/22/20 09:21> - General Exam Comments Initial Comments: This is an 84-year-old female alert and oriented to self. Unknown date. Confused. Anxious. (Penelope Bello) Course <Penelope Bello - Last Filed: 06/22/20 09:21> Vital Signs 06/22/20 06/22/20 06/22/20 06:51 11:48 13:19 Temperature 97.6 F 98.0 F Pulse Rate 108 H 108 H 101 H Respiratory 16 16 18 Rate Blood Pressure 131/99 123/94 118/85 O2 Sat by Pulse 98 99 96 Oximetry - Reevaluation(s) Reevaluation #1: 06/22/20 07:24 Patient was going to CAT scan and started to hyperventilate having panic attack. Patient was able to calm down enough to get scan. Patient receiving Ativan upon return to room. (Penelope Bello) Reevaluation #2: 06/22/20 07:58 Patient's daughter is at bedside and Patient is currently on the bedpan. I discussed with daughter concerns for altered mental status stating that it was 1998 and confused on the president is. Patient's daughter states that this is not her baseline she is normally alert and oriented X3. (Penelope Bello) Reevaluation #3: 06/22/20 09:21 Patient is reevaluated after IV fluids 0.5 mg of Ativan and Zofran. She states she is feeling somewhat better but still complaining of persistent mild headache. Daughter states that she seems to be more alert and oriented and less shaky. Discussed CT findings with and daughter and discussed admission with consultation neurology. Patient's daughter and Patient are agreeable to this treatment plan. (Penelope Bello) EKG Findings - EKG Comments: EKG Findings:: EKG shows atrial fibrillation with rapid ventricular response. Low voltage QRS. No specific ST and T-wave abnormality probable digitalis effect. Ventricular rate of 109 bpm. [place] interval is undetectable. QRS duration is 74 ms. QT QTc is 360/484 ms. <Penelope Bello - Last Filed: 06/22/20 09:21> Medical Decision Making - Lab Data Result diagrams: 06/22/20 07:06 06/22/20 07:06 - Radiology Data Radiology results: report reviewed <Penelope Bello - Last Filed: 06/22/20 09:21> - Lab Data Result diagrams: 06/22/20 07:06 06/22/20 07:06 <Barrie Garcia - Last Filed: 06/22/20 15:14> - Medical Decision Making This is a 84-year-old female who presents to the emergency department today for evaluation for concern for confusion and headache for the past 3 days. Patient was alert and oriented 1. Confused on the year stating it was 1989 [facility]. Patient daughter states that this is not her baseline. No other focal neurological deficits were appreciated. She does have history of atrial fibrillation is on Coumadin. Labs are reviewed. She does have a super therapeutic INR of 7.0. Discussed holding Coumadin for this time. She was not given vitamin K. Patient's chest x-ray was negative for any acute cardio pulmonary process. Patient's CT of the brain showed no acute midline shift or mass effect or hemorrhage. CT angios showed no significant stenosis. There was mentioning of possible webbing on the right carotid artery which could be confirmed with ultrasound. I discussed the findings with Patient and her family. She is feeling somewhat better after receiving IV fluids, 0.5 mg of Ativan and Zofran. She does complain of a mild headache still this time. I discussed admission with consults of neurology for concern for altered mental status and persistent headache. Patient's family is agreeable to plan. Discussed with Dr. Garcia whom discussed with Dr. Ellis. (Penelope Bello) 84-year-old female with confusion, headache over the past 2 or 3 days. Patient has a nonfocal exam but she is alert and oriented 1 which is not her baseline. Patient will evaluate and examine this patient. Workup negative for intracranial hemorrhage or mass effect, laboratory studies are unremarkable. She will be admitted with neurology on consult. Discussed case with Dr. Ellis who is agreeable with admission. (Barrie Garcia) - Lab Data Lab Results 06/22/20 06/22/20 06/22/20 Range/Units 07:06 07:06 07:06 WBC 8.1 (3.8-10.6) k/uL RBC 4.90 (3.80-5.40) m/uL Hgb 14.8 (11.4-16.0) gm/dL Hct 45.5 (34.0-46.0) % MCV 92.8 (80.0-100.0) fL MCH 30.2 (25.0-35.0) pg MCHC 32.5 (31.0-37.0) g/dL RDW 13.7 (11.5-15.5) % Plt Count 293 (150-450) k/uL Neutrophils % 60 % Lymphocytes % 28 % Monocytes % 5 % Eosinophils % 6 % Basophils % 1 % Neutrophils # 4.9 (1.3-7.7) k/uL Lymphocytes # 2.2 (1.0-4.8) k/uL Monocytes # 0.4 (0-1.0) k/uL Eosinophils # 0.5 (0-0.7) k/uL Basophils # 0.0 (0-0.2) k/uL PT 71.4 H (9.0-12.0) sec INR 7.0 H* (<1.2) APTT 60.3 H (22.0-30.0) sec Sodium 142 (137-145) mmol/L Potassium 4.0 (3.5-5.1) mmol/L Chloride 111 H (98-107) mmol/L Carbon Dioxide 24 (22-30) mmol/L Anion Gap 7 mmol/L BUN 15 (7-17) mg/dL Creatinine 0.67 (0.52-1.04) mg/dL Est GFR (CKD-EPI)AfAm >90 (>60 ml/min/1.73 sqM) Est GFR (CKD-EPI)NonAf 81 (>60 ml/min/1.73 sqM) Glucose 85 (74-99) mg/dL Calcium 9.2 (8.4-10.2) mg/dL Total Bilirubin 0.7 (0.2-1.3) mg/dL AST 26 (14-36) U/L ALT 22 (4-34) U/L Alkaline Phosphatase 143 H (38-126) U/L Troponin I (0.000-0.034) ng/mL Total Protein 6.5 (6.3-8.2) g/dL Albumin 3.9 (3.5-5.0) g/dL TSH (0.465-4.680) mIU/L Urine Color Urine Appearance (Clear) Urine pH (5.0-8.0) Ur Specific [place] (1.001-1.035) Urine Protein (Negative) Urine Glucose (UA) (Negative) Urine Ketones (Negative) Urine Blood (Negative) Urine Nitrite (Negative) Urine Bilirubin (Negative) Urine Urobilinogen (<2.0) mg/dL Ur Leukocyte Esterase (Negative) 06/22/20 06/22/20 06/22/20 Range/Units 07:06 07:20 08:01 WBC (3.8-10.6) k/uL RBC (3.80-5.40) m/uL Hgb (11.4-16.0) gm/dL Hct (34.0-46.0) % MCV (80.0-100.0) fL MCH (25.0-35.0) pg MCHC (31.0-37.0) g/dL RDW (11.5-15.5) % Plt Count (150-450) k/uL Neutrophils % % Lymphocytes % % Monocytes % % Eosinophils % % Basophils % % Neutrophils # (1.3-7.7) k/uL Lymphocytes # (1.0-4.8) k/uL Monocytes # (0-1.0) k/uL Eosinophils # (0-0.7) k/uL Basophils # (0-0.2) k/uL PT (9.0-12.0) sec INR (<1.2) APTT (22.0-30.0) sec Sodium (137-145) mmol/L Potassium (3.5-5.1) mmol/L Chloride (98-107) mmol/L Carbon Dioxide (22-30) mmol/L Anion Gap mmol/L BUN (7-17) mg/dL Creatinine (0.52-1.04) mg/dL Est GFR (CKD-EPI)AfAm (>60 ml/min/1.73 sqM) Est GFR (CKD-EPI)NonAf (>60 ml/min/1.73 sqM) Glucose (74-99) mg/dL Calcium (8.4-10.2) mg/dL Total Bilirubin (0.2-1.3) mg/dL AST (14-36) U/L ALT (4-34) U/L Alkaline Phosphatase (38-126) U/L Troponin I <0.012 (0.000-0.034) ng/mL Total Protein (6.3-8.2) g/dL Albumin (3.5-5.0) g/dL TSH 0.020 L (0.465-4.680) mIU/L Urine Color Light Yellow Urine Appearance Clear (Clear) Urine pH 7.0 (5.0-8.0) Ur Specific [place] 1.017 (1.001-1.035) Urine Protein Negative (Negative) Urine Glucose (UA) Negative (Negative) Urine Ketones Negative (Negative) Urine Blood Negative (Negative) Urine Nitrite Negative (Negative) Urine Bilirubin Negative (Negative) Urine Urobilinogen <2.0 (<2.0) mg/dL Ur Leukocyte Esterase Negative (Negative) - Radiology Data Chest x-ray shows chronic changes and mild cardiomegaly without acute pulmonary process. CT of the brain without contrast shows no acute intracranial hemorrhage or midline shift. Moderate diffuse cerebral atrophy and chronic small vessel ischemic change along with postsurgical cranial he had AMI all redemonstrated. No significant change from prior. No sizable aneurysm with a global less. There is an intracranial and atherosclerotic disease. No carotid bifurcation significant stenosis. Linear attenuation to the proximal right common carotid artery may be artifactual or re lated to ectasia of the artery. Small band or web is not excluded this could be correlated with ultrasound. (Penelope Bello) Disposition Is patient prescribed a controlled substance at d/c from ED?: No Time of Disposition: 09:24 <Penelope Bello - Last Filed: 06/22/20 09:21> <Barrie Garcia - Last Filed: 06/22/20 15:14> Clinical Impression: Altered mental status, Headache, Supratherapeutic INR Disposition: ADMITTED IP TO THIS HOSP Condition: Stable
[2020-06-22] MEDS ORDERED: LORazepam 2 MG/ML INJ IV STA (07:22)
[2020-06-22 07:29] LABS: Basophils % (A) 1 %; Eosinophils # (A) 0.5 k/uL (0-0.7); Eosinophils % (A) 6 %; HCT 45.5 % (34.0-46.0); HGB 14.8 gm/dL (11.4-16.0); Lymphocytes # (A) 2.2 k/uL (1.0-4.8); Lymphocytes % (A) 28 %; MCH 30.2 pg (25.0-35.0); MCHC 32.5 g/dL (31.0-37.0); MCV 92.8 fL (80.0-100.0); Mean Platelet Volume 7.1; Monocytes # (A) 0.4 k/uL (0-1.0); Monocytes % (A) 5 %; Neutrophils # (A) 4.9 k/uL (1.3-7.7); Neutrophils % (A) 60 %; Platelet Count 293 k/uL (150-450); RDW 13.7 % (11.5-15.5); WBC 8.1 k/uL (3.8-10.6)
--- NOTE | 2020-06-22 07:44 | CT ---
EXAMINATION TYPE: CT brain wo con DATE OF EXAM: 06/22/2020 HISTORY: Headache x 3 days, Increased confusion, code Stroke CT DLP: 1087 mGycm. Automated Exposure Control for Dose Reduction was Utilized. TECHNIQUE: CT scan of the head is performed without contrast. COMPARISON: CT brain January 08, 2019.. FINDINGS: There is no acute intracranial hemorrhage or midline shift identified. There is diffuse v entricular and sulcal prominence consistent with diffuse age-related cerebral atrophy. There is low- attenuation in the periventricular white matter consistent with chronic small vessel ischemic change. The globes are intact and the visualized sinuses are clear. Low left-sided craniotomy defect at lev el of cerebellar hemisphere redemonstrated. IMPRESSION: No acute intracranial hemorrhage or midline shift. There is moderate diffuse cerebral a trophy and chronic small vessel ischemic change along with postsurgical craniotomy all redemonstrated . No significant change from prior.
--- NOTE | 2020-06-22 07:46 | XR ---
EXAMINATION TYPE: XR chest 2V DATE OF EXAM: 06/22/2020 COMPARISON: Chest x-ray May 29, 2019. HISTORY: Altered mental status and weakness. TECHNIQUE: Frontal and lateral views of the chest are obtained. FINDINGS: Elevation and eventration anterior aspect right hemidiaphragm redemonstrated. There is chr onic brachial change without suspicious new focal air space opacity, pleural effusion, or pneumothora x seen. The cardiac silhouette size is mildly enlarged on current study. The osseous structures re main demineralized. IMPRESSION: Chronic changes and mild cardiomegaly without acute pulmonary process.
[2020-06-22 07:47] LABS: Prothrombin Time 71.4 sec (9.0-12.0)
[2020-06-22 07:51] LABS: ALT 22 U/L (4-34); AST 26 U/L (14-36); African American GFR (CKD) >90 (>60 ml/min/1.73 sqM); Albumin 3.9 g/dL (3.5-5.0); Alkaline Phosphatase 143 U/L (38-126); Anion Gap 7 mmol/L; Blood Urea Nitrogen 15 mg/dL (7-17); Calcium 9.2 mg/dL (8.4-10.2); Carbon Dioxide 24 mmol/L (22-30); Chloride 111 mmol/L (98-107); Glucose 85 mg/dL (74-99); Non-African American GFR(CKD) 81 (>60 ml/min/1.73 sqM); Sodium 142 mmol/L (137-145); Total Bilirubin 0.7 mg/dL (0.2-1.3); Total Protein 6.5 g/dL (6.3-8.2)
[2020-06-22 08:01] LABS: Partial Thromboplastin Time 60.3 sec (22.0-30.0)
[2020-06-22] MEDS ORDERED: PHYTONADIONE ORAL 5 MG/5 ML ORAL.SYRG PO STA (08:10)
[2020-06-22 08:27] LABS: Appearance,Urine Clear (Clear); Bilirubin,Urine Negative (Negative); Blood,Urine Negative (Negative); Color,Urine Light Yellow; Glucose,Urine (UA) Negative (Negative); Ketones,Urine Negative (Negative); Leukocyte Esterase,Urine Negative (Negative); Nitrite,Urine Negative (Negative); Protein,Urine Negative (Negative); Specific Gravity,Urine 1.017 (1.001-1.035); Urobilinogen,Urine <2.0 mg/dL (<2.0)
--- NOTE | 2020-06-22 09:05 | CT ---
EXAMINATION TYPE: CT angio head neck DATE OF EXAM: 06/22/2020 HISTORY: Altered mental status, increased confuion and stroke COMPARISON: 01/08/2019 CT DLP: 330.9 mGycm. Automated Exposure Control for Dose Reduction was Utilized. TECHNIQUE: CTA scan of the neck is performed without and with IV Contrast, patient injected with 100 ml mL of Isovue 370, axial images are obtained, coronal and sagittal reformatted images are reviewed . Three-D reconstructed images are created on an independent workstation and reviewed. FINDINGS: Left vertebral artery slightly dominant. Vertebrobasilar and carotid systems appear patent. Mild irre gularity involving the M1 segment of the MCA bilaterally could represent intracranial vascular occlus eitan disease. No sizable aneurysm. Degenerative changes are seen and there is nonspecific white matter changes most typical of remote white matter ischemia. There is mild atherosclerotic changes involving the carotid bifurcation region bilaterally. Within th e proximal right internal carotid artery there is a linear area of low attenuation which could repres ent a band or possibly kink within the artery. May be related to vascular ectasia. IMPRESSION: 1. No sizable aneurysm within the [place] of [place] there is intracranial atherosclerotic disease. 2. No carotid bifurcation significant stenosis. 3. Linear attenuation through the proximal right common carotid artery may be artifactual or related to ectasia of the artery. Small band or web is not excluded and could be correlated with ultrasound.
[2020-06-22] MEDS ORDERED: ACETAMINOPHEN TAB 500 MG TAB PO STA (09:10)
[2020-06-22] MEDS ORDERED: NALOXONE 0.4 MG/ML 1 ML VIAL IV PRN (09:24)
[2020-06-22] MEDS ORDERED: IBUPROFEN 400 MG TAB PO PRN (09:24)
[2020-06-22] MEDS ORDERED: KETOROLAC 30 MG/ML 1 ML VIAL IVP PRN (09:24)
--- NOTE | 2020-06-22 11:21 | P.HPIM ---
History of Present Illness H&P Date: 06/22/20 Chief Complaint: Headache, mental status changes History of Present Illness This is an 84-year-old female patient of Dr. Dr. Ellis and Dr. Foreman with past medical history of paroxysmal atrial fibrillation, coronary artery disease with previous stent, TIAs, hypertension, hypothyroidism. Patient gives history of having a headache for several days. She denies any previous history of migraine headaches. Headache is in the frontal area and is pulsating. She also complains of nausea. Daughter is at the bedside and states that she recei crow a call from her father this morning that the patient was confused and not herself. She was slow to respond. Patient denied having any chest pain no abdominal pain, and no diarrhea. She did have nausea without vomiting. She denies any Covid 19 exposure. Regarding warfarin, patient was on this for very long time and was switched to eliquis by Dr. Foreman the patient developed scaly skin and she was switched back to Coumadin by Dr. Foreman's nurse practitioner. Patient states that she has been on Coumadin for a couple of weeks. Patient presented to [facility] emergency center for evaluation. Patient was seen in the ER waiting for bed. Heart rate A. fib 120s to 130s. Afebrile, blood pressure 131/99. CBC unremarkable. INR 7. Sodium 142, potassium 4, chloride 111, CO2 24, BUN 15 creatinine 0.67. Alkaline phosphatase 143. Troponin negative. Urinalysis clear with nitrate and leukoesterase negative. EKG A. fib with heart rate of 109. CAT scan of the brain without contrast revealed no acute intracranial hemorrhage or midline shift. Moderate diffuse cerebral atrophy and chronic small vessel ischemic change along with postsurgical craniotomy all read demonstrated. CT angiogram of the head and neck showed no sizable aneurysm within the [place] of [place]. There is intracranial atherosclerotic disease. No carotid bifurcation significant stenosis. Linear attenuation through the proximal right common carotid artery may be artifactual or related to ectasia of the artery. Small band or web is not excluded and could be correlated with ultrasound. Chest x- ray shows chronic changes and mild cardiomegaly without acute pulmonary process. Patient was given 1 L of normal saline, Ativan, and Zofran. Review of Systems Constitutional: No fever, no chills, no night sweats. No weight change. Reports weakness, Reports fatigue Reports lethargy. No daytime sleepiness. EENT: Reports headache. No blurred vision or double vision, no loss of vision. No loss of Hearing, no ringing in the ears, no dizziness. No nasal drainage or congestion. No epistaxis. No sore throat. Lungs: No shortness of breath, cough, no sputum production. No wheezing. Cardiovascular: No chest pain, no lower extremity edema. No palpitations. No paroxysmal nocturnal dyspnea. No orthopnea. No lightheadedness or dizziness. No syncopal episodes. Abdominal: No abdominal pain. No nausea, vomiting. No diarrhea. No constipation. No bloody or tarry stools.. No loss of appetite. Genitourinary: No dysuria, increased frequency, urgency. No urinary retention. Musculoskeletal: No myalgias. No muscle weakness, no gait dysfunction, no frequent falls. No back pain. No neck pain. Integumentary: No wounds, no lesions. No rash or pruritus. No unusual bruising. No change in hair or nails. Neurologic: No aphasia. No facial droop. Reports change in mentation. No head injury. Reports headache. No paralysis. No paresthesia. Psychiatric: No depression. No anxiety. No mood swings. Endocrine: No abnormal blood sugars. No weight change. No excessive sweating or thirst. No cold intolerance. Physical Examination Gen: This is an 84-year-old thin female. She is resting on the ER stretcher and appears to be comfortable and in no acute distress. Daughter is at bedside. HEENT: Head is atraumatic, normocephalic. Pupils equal, round. Sclerae is anicteric. NECK: Supple. No JVD. No lymphadenopathy. No thyromegaly. LUNGS: Clear to auscultation. No wheezes or rhonchi. No intercostal retractions. HEART: Irregularly irregular rate and rhythm. No murmur. monitoring tech is atrial fibrillation 120s to 130s. ABDOMEN: Soft. Bowel sounds are present. No masses. No tenderness. EXTREMITIES: No pedal edema. No calf tenderness. NEUROLOGICAL: Patient is awake, alert and oriented to person place and time. She can answer most questions appropriately. Mild confusion remains and patient is not back to her baseline. Cranial nerves 2 through 12 are grossly intact. Assessment and Plan 1. Metabolic encephalopathy of unclear etiology. EEG, MRI of the brain, consult with neurology. 2. Paroxysmal atrial fibrillation with RVR. Consult with Dr. Hilliard. Hold Coumadin. 3. Hypercoagulopathy secondary to Coumadin use. Patient has not received vitamin K. Hold Coumadin. Patient has tried eliquis in the past but developed scaly skin and was switched back to Coumadin. Patient would benefit from utilizing eliquis for anticoagulation. 4. Hypertension. Continue Norvasc 5 mg daily. 5. History of coronary artery disease with 1 stent, stable. No complaints of chest pain. 6. Hypothyroidism. Obtain TSH and free T4. Continue levothyroxine 75 g daily. 7. History of TIAs. 8. Headache. Continue Tylenol as needed. Neurology consult. 9. DVT prophylaxis. Patient has hypercoagulopathy, hold Coumadin. 10. GI prophylaxis. Protonix. 11. COVID-19 testing. Patient will be admitted to the hospital for a minimum of 2 night stay. Discharge plan: To be determined. Add PT and OT. Impression and plan of care have been directed as dictated by the signing physician. Rossana Fall nurse practitioner acting as scribe for signing physician. Past Medical History Past Medical History: Atrial Fibrillation, CVA/TIA, Hypertension, Myocardial Infarction ([place]), Thyroid Disorder Additional Past Medical History / Comment(s): TIA Last Myocardial Infarction Date:: 2011 History of Any Multi-Drug Resistant Organisms: None Reported Past Surgical History: Bladder Surgery, Heart Catheterization With Stent, Hysterectomy, Orthopedic Surgery Additional Past Surgical History / Comment(s): surgery X2 for trigeminal neuralgia Past Anesthesia/Blood Transfusion Reactions: Postoperative Nausea & Vomiting (PONV) Additional Past Anesthesia/Blood Transfusion Reaction / Comment(s): patient has never received a blood transfusion Date of Last Stent Placement:: 2011 Past Psychological History: No Psychological Hx Reported Smoking Status: Never smoker Past Alcohol Use History: None Reported Additional Past Alcohol Use History / Comment(s): Patient is a lifelong nonsmoker, no alcohol abuse, no marijuana or street drug use. Patient lives at home with her . Past Drug Use History: None Reported - Past Family History Mother Family Medical History: Myocardial Infarction ([place]) Additional Family Medical History / Comment(s): Mother at age 63 from a myocardial infarction. Father Family Medical History: Congestive Heart Failure (CHF) Additional Family Medical History / Comment(s): Father at age 89 with history of coronary artery disease, CHF. Sister(s) Family Medical History: Coronary Artery Disease (CAD), Deep Vein Thrombosis (DVT) Additional Family Medical History / Comment(s): Patient has a total of 4 sisters and most of them have had coronary artery disease. She denies any cancers. Brother(s) Family Medical History: Congestive Heart Failure (CHF) Additional Family Medical History / Comment(s): Patient has one brother with history of coronary artery disease. Daughter(s) Additional Family Medical History / Comment(s): Patient is a total of 4 children with no major medical problems. Medications and Allergies Home Medications Medication Instructions Recorded Confirmed Type Levothyroxine Sodium [Synthroid] 75 mcg PO QAM 12/03/17 06/22/20 History Warfarin [Coumadin] 5 mg PO W/SUPPER 12/03/17 06/22/20 History DULoxetine HCL [Cymbalta] 30 mg PO DAILY 06/22/20 06/22/20 History amLODIPine [Norvasc] 5 mg PO DAILY 06/22/20 06/22/20 History Allergies Allergy/AdvReac Type Severity Reaction Status Date / Time amiodarone Allergy Unknown Verified 06/22/20 08:05 apixaban [From Eliquis] Allergy Unknown Verified 06/22/20 08:05 hydrocodone [From [place]] AdvReac Confusion Verified 06/22/20 08:05 Physical Exam Vitals: Vital Signs Temp Pulse Resp BP Pulse Ox 06/22/20 06:51 97.6 F 108 H 16 131/99 98 Intake and Output 06/21/20 06/22/20 06/22/20 22:59 06:59 14:59 Other: Weight 45.359 kg Results CBC & Chem 7: 06/22/20 07:06 06/22/20 07:06 Labs: Abnormal Lab Results - Last 24 Hours (Table) 06/22/20 06/22/20 Range/Units 07:06 07:06 PT 71.4 H (9.0-12.0) sec INR 7.0 H* (<1.2) APTT 60.3 H (22.0-30.0) sec Chloride 111 H (98-107) mmol/L Alkaline Phosphatase 143 H (38-126) U/L
--- NOTE | 2020-06-22 11:44 | MR ---
EXAMINATION TYPE: MR brain wo con DATE OF EXAM: 06/22/2020 COMPARISON: CT brain earlier today. HISTORY: Altered mental status, code stroke earlier today. Confusion. Headache for 3 days. TECHNIQUE: Multiplanar, multisequence imaging of the brain and brainstem is performed without IV cont rast. FINDINGS: Diffusion weighted images demonstrate no evidence of a recent infarct or other diffusion abnormality. There is no worrisome extra-axial fluid collection. Diffuse ventricular and sulcal prominence. Areas of T2 hyperintensity scattered throughout the white matter bilaterally greatest in the periventricula r levels. Midline structures demonstrate normal morphology. The craniocervical junction appears within normal limits. Normal vascular flow voids are present. The visualized sinuses are clear and the globes are i ntact. IMPRESSION: 1. No MRI evidence for recent infarct. 2. Background [id number] diffuse cerebral atrophy and moderate to advanced chronic small vessel ischemic change is confirmed.
[2020-06-22] MEDS: SODIUM CHLORIDE 0.9% 1,000 ML IV SCH (14:35)
[2020-06-22 15:47] LABS: T4, Free (Free Thyroxine) 1.42 ng/dL (0.78-2.19)
--- NOTE | 2020-06-22 16:11 | P.CNNES ---
History of Present Illness Consult date: 06/22/20 Requesting physician: Penelope Bello Reason for Consult: Altered mental status, headache History of Present Illness: Patient is a 84-year-old female, came to the hospital for 2 days history of headache. Patient states that her headaches started on 06/20/2020 morning when she woke up. It was mild, gradually got worse. The headache would not go away. It involves the forehead region, associated with photophobia and phonophobia. Denies any nausea or vomiting. Sometimes the headache can go up to 10/10 although at this time is 5/10. Patient denies any history of headaches in the past. Never had a migraine headache. She drinks 1 cup of coffee per day. No excessive pops, no alcohol. Denies hypertension or diabetes. Patient denies any fever, chills, diplopia or blurred vision. Patient denies any mental confusion. Patient's vital signs on arrival was blood pressure 131/99, pulse rate 108, temperature 97.6. Patient had undergone CT head showed no acute intracranial hemorrhage or midline shift. There is moderate diffuse cerebral atrophy and chronic small vessel ischemic changes along with postsurgical craniotomy already demonstrated. No significant change from prior. On my review, the visualized paranasal sinuses are completely clear. Chest x-ray showed chronic changes and mild cardiomegaly without acute pulmonary process. CTA of head and neck showed no sizable aneurysm within the [place] of [place] there is intracranial atherosclerotic disease. No carotid bifurcation significant stenosis. Linear attenuation through the proximal right common carotid artery may be artifactual related to ectasia of the artery. Small band or web not excluded and could be correlated with ultrasound. EKG shows atrial fibrillation with rapid ventricular rate. Patient is on Coumadin. Patient blood test shows normal CBC, Chem-20. INR was 7.0. UA negative. Review of Systems As per history of present illness. All other 14 point review of systems unremarkable. Past Medical History Past Medical History: Atrial Fibrillation, CVA/TIA, Hypertension, Myocardial Infarction ([place]), Thyroid Disorder Additional Past Medical History / Comment(s): TIA Last Myocardial Infarction Date:: 2011 History of Any Multi-Drug Resistant Organisms: None Reported Past Surgical History: Bladder Surgery, Heart Catheterization With Stent, Hysterectomy, Orthopedic Surgery Additional Past Surgical History / Comment(s): surgery X2 for trigeminal neuralgia Past Anesthesia/Blood Transfusion Reactions: Postoperative Nausea & Vomiting (PONV) Additional Past Anesthesia/Blood Transfusion Reaction / Comment(s): patient has never received a blood transfusion Date of Last Stent Placement:: 2011 Past Psychological History: No Psychological Hx Reported Smoking Status: Never smoker Past Alcohol Use History: None Reported Additional Past Alcohol Use History / Comment(s): Patient is a lifelong nonsmoker, no alcohol abuse, no marijuana or street drug use. Patient lives at home with her . Past Drug Use History: None Reported - Past Family History Mother Family Medical History: Myocardial Infarction ([place]) Additional Family Medical History / Comment(s): Mother at age 63 from a myocardial infarction. Father Family Medical History: Congestive Heart Failure (CHF) Additional Family Medical History / Comment(s): Father at age 89 with history of coronary artery disease, CHF. Sister(s) Family Medical History: Coronary Artery Disease (CAD), Deep Vein Thrombosis (DVT) Additional Family Medical History / Comment(s): Patient has a total of 4 sisters and most of them have had coronary artery disease. She denies any cancers. Brother(s) Family Medical History: Congestive Heart Failure (CHF) Additional Family Medical History / Comment(s): Patient has one brother with history of coronary artery disease. Daughter(s) Additional Family Medical History / Comment(s): Patient is a total of 4 children with no major medical problems. Medications and Allergies Home Medications Medication Instructions Recorded Confirmed Type Levothyroxine Sodium [Synthroid] 75 mcg PO QAM 12/03/17 06/22/20 History DULoxetine HCL [Cymbalta] 30 mg PO DAILY 06/22/20 06/22/20 History Apixaban [Eliquis] 2.5 mg PO BID #60 tab 06/23/20 Rx Butalb/APAP/Caff 50-325-40Mg 1 each PO Q4HR PRN #30 tab 06/23/20 Rx [Fioricet 50-325-40] Verapamil Sr [Isoptin Sr] 120 mg PO DAILY #30 tablet.er 06/23/20 Rx Allergies Allergy/AdvReac Type Severity Reaction Status Date / Time amiodarone Allergy Unknown Verified 06/22/20 08:05 apixaban [From Eliquis] Allergy Unknown Verified 06/22/20 08:05 hydrocodone [From [place]] AdvReac Confusion Verified 06/22/20 08:05 Physical Examination - Vital Signs Vital Signs: Vital Signs Temp Pulse Resp BP Pulse Ox 06/22/20 06:51 97.6 F 108 H 16 131/99 98 Intake and Output 06/21/20 06/22/20 06/22/20 22:59 06:59 14:59 Other: Weight 45.359 kg On examination patient is an elderly female, in no acute distress. Patient is alert awake oriented to time place and person. Speech and language functions are normal. Attention concentration fund of knowledge is adequate. On cranial examination pupils are round and reactive to light, [place] are full on confrontation. Extraocular muscles are intact with no nystagmus. Face is symmetric, tongue protrudes the midline. Palatal elevation and sensation normal. Hearing and shoulder shrug normal. On muscle strength testing there is no pronator drift and the strength is normal in arms and legs distally and proximally reflexes are 1+ and plantars downgoing. Sensory touch is equal. No ataxia for [id number] testing. Tone and bulk of muscles normal. Gait deferred. No carotid bruit or murmur, peripheral pulses present. Abdomen soft nontender. Chest clear. Results - Laboratory Findings CBC and BMP: 06/23/20 05:27 06/23/20 05:27 Abnormal Lab Findings: Abnormal Labs 06/22/20 06/22/20 07:06 07:06 PT 71.4 H INR 7.0 H* APTT 60.3 H Chloride 111 H Alkaline Phosphatase 143 H Assessment and Plan Assessment: * New onset bifrontal headache of 2 days duration, unclear etiology. Neurological examination is nonfocal. MRI of the brain revealed no acute process. * Altered mental status, now seems to have cleared. * Atrial fibrillation, on anticoagulation. * Coagulopathy with elevated INR 7.0. Plan: * We will check ESR, CRP, rule out temporal arteritis. * Patient has coagulopathy with elevated INR, therefore Toradol or Fioricet rela tively concerning. * EEG was essentially normal. Slightly excessive fast frequency beta is suggestive of medication effect.
[2020-06-22] MEDS: ACETAMINOPHEN TAB 325 MG TAB PO PRN (19:42)
--- NOTE | 2020-06-22 19:51 | EEG ---
ELECTROENCEPHALOGRAM REPORT DATE OF SERVICE: 06/22/2020. PREAMBLE: This is an 84-year-old female with cephalgia, altered mental status. EEG FINDINGS: This is a 21-channel routine EEG recording in a patient utilizing 10-20 international system with referential and bipolar montages. Background consists of well developed, well regulated, moderate voltage activity in 8-9 hertz alpha. Background is posterior- dominant and reactive to eye opening and closing. Very frequent low-voltage fast frequency beta activity is also seen. Photic driving response was not seen. Some drowsiness was seen with appearance of bilaterally symmetric theta frequency rhythm. Deeper stages of sleep were not seen. No focal or generalized epileptiform activity was seen. IMPRESSION: This is normal awake and drowsy EEG for patient's age. Presence of excessive fast frequency beta activity is suggestive of medication effect. MMODL / IJN: [id number] /
[2020-06-23 04:56] VITALS: TEMP 98.1
[2020-06-23 05:52] LABS: Basophils % (A) 0 %; Eosinophils # (A) 0.4 k/uL (0-0.7); Eosinophils % (A) 7 %; HCT 39.3 % (34.0-46.0); Lymphocytes # (A) 1.9 k/uL (1.0-4.8); Lymphocytes % (A) 30 %; MCH 30.7 pg (25.0-35.0); MCHC 33.2 g/dL (31.0-37.0); MCV 92.4 fL (80.0-100.0); Mean Platelet Volume 6.9; Monocytes # (A) 0.3 k/uL (0-1.0); Monocytes % (A) 5 %; Neutrophils # (A) 3.6 k/uL (1.3-7.7); Neutrophils % (A) 56 %; Platelet Count 246 k/uL (150-450); RBC 4.25 m/uL (3.80-5.40); RDW 13.7 % (11.5-15.5); WBC 6.4 k/uL (3.8-10.6)
[2020-06-23 06:13] LABS: Prothrombin Time 63.3 sec (9.0-12.0)
[2020-06-23 06:22] LABS: INR 6.2 (<1.2)
[2020-06-23] MEDS: ACETAMINOPHEN TAB 325 MG TAB PO PRN (06:24)
[2020-06-23] MEDS ORDERED: LEVOTHYROXINE 75 MCG TAB PO SCH (06:30)
[2020-06-23 06:37] LABS: ALT 17 U/L (4-34); AST 23 U/L (14-36); African American GFR (CKD) >90 (>60 ml/min/1.73 sqM); Albumin 3.3 g/dL (3.5-5.0); Alkaline Phosphatase 122 U/L (38-126); Anion Gap 4 mmol/L; Blood Urea Nitrogen 14 mg/dL (7-17); Carbon Dioxide 24 mmol/L (22-30); Chloride 111 mmol/L (98-107); Glucose 88 mg/dL (74-99); Non-African American GFR(CKD) 79 (>60 ml/min/1.73 sqM); Potassium 4.1 mmol/L (3.5-5.1); Sodium 139 mmol/L (137-145); Total Bilirubin 0.4 mg/dL (0.2-1.3); Total Protein 5.7 g/dL (6.3-8.2)
[2020-06-23 06:44] LABS: Erythrocyte Sedimentation Rate 6 mm/hr (0-20)
[2020-06-23] MEDS ORDERED: PANTOPRAZOLE 40 MG TABLET PO SCH (07:30)
[2020-06-23] MEDS ORDERED: BUTALB/APAP/CAFF 50-325-40MG TAB PO PRN (08:31)
--- NOTE | 2020-06-23 08:38 | P.DS ---
Providers Date of admission: 06/22/20 09:36 Expected date of discharge: 06/23/20 Attending physician: Deejay Ellis Consults: 06/22/20 09:24 Consult Physician Stat Consulting Provider: Harper Allen Consult Reason/Comments: AMS, headache Do you want consulting provider notified?: Yes 06/22/20 09:49 Consult Physician Routine Consulting Provider: Toan Hilliard Consult Reason/Comments: afib Do you want consulting provider notified?: Yes Primary care physician: Deejay Caleb [facility] Course: History of Present Illness This is an 84-year-old female patient of Dr. Dr. Ellis and Dr. Foreman with past medical history of paroxysmal atrial fibrillation, coronary artery disease with previous stent, TIAs, hypertension, hypothyroidism. Patient gives history of having a headache for several days. She denies any previous history of migraine headaches. Headache is in the frontal area and is pulsating. She also complains of nausea. Daughter is at the bedside and states that she received a call from her father this morning that the patient was confused and not herself. She was slow to respond. Patient denied having any chest pain no abdominal pain, and no diarrhea. She did have nausea without vomiting. She denies any Covid 19 exposure. Regarding warfarin, patient was on this for very long time and was switched to eliquis by Dr. Foreman the patient developed scaly skin and she was switched back to Coumadin by Dr. Foreman's nurse practitioner. Patient states that she has been on Coumadin for a couple of weeks. Patient presented to [facility] emergency center for evaluation. Patient was seen in the ER waiting for bed. Heart rate A. fib 120s to 130s. Afebrile, blood pressure 131/99. CBC unremarkable. INR 7. Sodium 142, potassium 4, chloride 111, CO2 24, BUN 15 creatinine 0.67. Alkaline phosphatase 143. Troponin negative. Urinalysis clear with nitrate and leukoesterase negative. EKG A. fib with heart rate of 109. CAT scan of the brain without contrast revealed no acute intracranial hemorrhage or midline shift. Moderate diffuse cerebral atrophy and chronic small vessel ischemic change along with postsurgical craniotomy all read demonstrated. CT angiogram of the head and neck showed no sizable aneurysm within the [place] of [place]. There is intracranial atherosclerotic disease. No carotid bifurcation significant stenosis. Linear attenuation through the proximal right common carotid artery may be artifactual or related to ectasia of the artery. Small band or web is not excluded and could be correlated with ultrasound. Chest x- ray shows chronic changes and mild cardiomegaly without acute pulmonary process. Patient was given 1 L of normal saline, Ativan, and Zofran. 06/23: Patient has been seen by neurology for new onset bifrontal headache and altered mental status. EEG was essentially normal. Slightly excessive fast frequency beta is suggestive medication effect. MRI of the brain was negative for recent infarct. Background mild to moderate diffuse cerebral atrophy and moderate to advanced chronic small vessel ischemic change Sed rate is 6, CRP 6.2 and temporal arteritis is been ruled out. TSH 0.020 and normal free T4 1 0.42. Repeat INR today is at 6.2 and patient has been instructed to discontinue warfarin completely and start eliquis on Saturday night. A new prescription has been sent to her pharmacy. Patient to follow-up in the office on Saturday. Patient states that she still has a headache but it is much better. Prescription for Fioricet will be sent to her pharmacy and if no improvement by Saturday, patient will have trigger injection for occipital neuralgia. Patient's mental status is back to her baseline. She has been afebrile, heart rate 106, blood pressure 132/68, pulse ox 96% on room air. Patient will be discharged home today in stable condition. Assessment and Plan 1. Metabolic encephalopathy of unclear etiology. 2. Paroxysmal atrial fibrillation with RVR. 3. Hypercoagulopathy secondary to Coumadin use. 4. Hypertension. 5. History of coronary artery disease with 1 stent, stable. 6. Hypothyroidism. 7. History of TIAs. 8. Headache. 9. COVID-19 infection not present. Discharge plan: home Impression and plan of care have been directed as dictated by the signing physician. Rossana Fall nurse practitioner acting as scribe for signing physician. Patient Condition at Discharge: Good Plan - Discharge Summary Discharge Rx Participant: No New Discharge Prescriptions: New Apixaban [Eliquis] 2.5 mg PO BID #60 tab Butalb/APAP/Caff 50-325-40Mg [Fioricet 50-325-40] 1 each PO Q4HR PRN #30 tab PRN Reason: Headache Verapamil Sr [Isoptin Sr] 120 mg PO DAILY #30 tablet.er Continue Levothyroxine Sodium [Synthroid] 75 mcg PO QAM DULoxetine HCL [Cymbalta] 30 mg PO DAILY Discontinued Warfarin [Coumadin] 5 mg PO W/SUPPER amLODIPine [Norvasc] 5 mg PO DAILY Discharge Medication List Levothyroxine Sodium [Synthroid] 75 mcg PO QAM 12/03/17 [History] DULoxetine HCL [Cymbalta] 30 mg PO DAILY 06/22/20 [History] Apixaban [Eliquis] 2.5 mg PO BID #60 tab 06/23/20 [Rx] Butalb/APAP/Caff 50-325-40Mg [Fioricet 50-325-40] 1 each PO Q4HR PRN #30 tab 06/23/20 [Rx] Verapamil Sr [Isoptin Sr] 120 mg PO DAILY #30 tablet.er 06/23/20 [Rx] Follow up Appointment(s)/Referral(s): Tacos Foreman MD [STAFF PHYSICIAN] - 07/12/20 1:15 pm (Saturday) Deejay Ellis MD [Primary Care Provider] - 06/28/20 10:00 am (Saturday) Activity/Diet/Wound Care/Special Instructions: Start eliquis on Saturday Discharge Disposition: HOME SELF-CARE
[2020-06-23] MEDS ORDERED: amLODIPine 5 MG TAB PO SCH (09:00)
[2020-06-23] MEDS ORDERED: DULoxetine HCL 30 MG CAPSULE.DR PO SCH (09:00)
[2020-06-23] MEDS ORDERED: PANTOPRAZOLE 40 MG/10 ML VIAL IV SCH (09:00)
[2020-06-23] MEDS ORDERED: VERAPAMIL SR 120 MG TABLET.ER PO SCH (09:00)
[2020-06-23 09:28] VITALS: BP 136/87; PULSE 94; RESP 16
[2020-06-23] MEDS: SODIUM CHLORIDE 0.9% 1,000 ML IV SCH (09:29)
[2020-06-23 11:20] VITALS: BMI 21.5
--- NOTE | 2020-06-23 18:26 | P.CRDCN ---
History of Present Illness History of present illness: This is Dr. Hilliard dictating a consult on this patient The patient was interviewed and examined IMPRESSION / ASSESSMENT: Headache with altered mental status Elevated INR on Coumadin No intracranial hemorrhage no recent stroke Atrial fibrillation, persistent Hypertension PLAN: Hold Coumadin and try a different NOAC once the INR is 2 or below Blood pressure management Rate control atrial fibrillation HPI patient presented with severe frontal headache pulsating in nature along with nausea She was confused and not herself She was slow to respond she did complain of nausea She takes Coumadin for atrial fibrillation, paroxysmal Computed tomography scan of the brain without contrast did not reveal any to renal hemorrhage She was seen by neurology and MRI of the brain was negative for any recent infarct Moderate diffuse cerebral atrophy was noted ROS: No fever chills or rigors, no cough, phlegm or expectoration, no nausea, vomiting or diarrhea, no hematuria, dysuria, no musculoskeletal complaints, no strokes or seizures, no skin lesions. EXAMINATION: On examination she was afebrile on March, pulse rate 100 3010 irregular Breath sounds normal no rhonchi no crackles Heart sounds soft irregular Blood pressure 118/63 mmHg REVIEW OF LABS, ECG & MEDICAL DATA elevated INR of 7.0 Electrolytes are reviewed BMP was reviewed TSH 0.02 Hemoglobin 13 Past Medical History Past Medical History: Atrial Fibrillation, CVA/TIA, Hypertension, Myocardial Infarction ([place]), Thyroid Disorder Additional Past Medical History / Comment(s): TIA Last Myocardial Infarction Date:: 2011 History of Any Multi-Drug Resistant Organisms: None Reported Past Surgical History: Bladder Surgery, Heart Catheterization With Stent, Hysterectomy, Orthopedic Surgery Additional Past Surgical History / Comment(s): surgery X2 for trigeminal neuralgia Past Anesthesia/Blood Transfusion Reactions: Postoperative Nausea & Vomiting (PONV) Additional Past Anesthesia/Blood Transfusion Reaction / Comment(s): patient has never received a blood transfusion Date of Last Stent Placement:: 2011 Past Psychological History: No Psychological Hx Reported Smoking Status: Never smoker Past Alcohol Use History: None Reported Additional Past Alcohol Use History / Comment(s): Patient is a lifelong nonsmoker, no alcohol abuse, no marijuana or street drug use. Patient lives at home with her . Past Drug Use History: None Reported - Past Family History Mother Family Medical History: Myocardial Infarction ([place]) Additional Family Medical History / Comment(s): Mother at age 63 from a myocardial infarction. Father Family Medical History: Congestive Heart Failure (CHF) Additional Family Medical History / Comment(s): Father at age 89 with history of coronary artery disease, CHF. Sister(s) Family Medical History: Coronary Artery Disease (CAD), Deep Vein Thrombosis (DVT) Additional Family Medical History / Comment(s): Patient has a total of 4 sisters and most of them have had coronary artery disease. She denies any cancers. Brother(s) Family Medical History: Congestive Heart Failure (CHF) Additional Family Medical History / Comment(s): Patient has one brother with history of coronary artery disease. Daughter(s) Additional Family Medical History / Comment(s): Patient is a total of 4 children with no major medical problems. Medications and Allergies Home Medications Medication Instructions Recorded Confirmed Type Levothyroxine Sodium [Synthroid] 75 mcg PO QAM 12/03/17 06/22/20 History DULoxetine HCL [Cymbalta] 30 mg PO DAILY 06/22/20 06/22/20 History Apixaban [Eliquis] 2.5 mg PO BID #60 tab 06/23/20 Rx Butalb/APAP/Caff 50-325-40Mg 1 each PO Q4HR PRN #30 tab 06/23/20 Rx [Fioricet 50-325-40] Verapamil Sr [Isoptin Sr] 120 mg PO DAILY #30 tablet.er 06/23/20 Rx Allergies Allergy/AdvReac Type Severity Reaction Status Date / Time amiodarone Allergy Unknown Verified 06/22/20 08:05 apixaban [From Eliquis] Allergy Unknown Verified 06/22/20 08:05 hydrocodone [From [place]] AdvReac Confusion Verified 06/22/20 08:05 Physical Exam Vitals: Vital Signs Temp Pulse Resp BP Pulse Ox 06/23/20 08:00 94 16 136/87 97 06/23/20 04:00 98.1 F 106 H 18 132/88 96 06/23/20 00:00 97.5 F L 105 H 18 118/63 97 06/22/20 20:00 97.5 F L 80 16 132/78 93 L Intake and Output 06/23/20 06/23/20 06/23/20 06:59 14:59 22:59 Intake Total 120 Balance 120 Intake: Oral 120 Other: Voiding Method Toilet # Voids 2 Weight 53.5 kg 53.5 kg Results 06/23/20 05:27 06/23/20 05:27 Cardiac Enzymes 06/23/20 Range/Units 05:27 AST 23 (14-36) U/L Coagulation 06/23/20 Range/Units 05:27 PT 63.3 H (9.0-12.0) sec CBC 06/23/20 Range/Units 05:27 WBC 6.4 (3.8-10.6) k/uL RBC 4.25 (3.80-5.40) m/uL Hgb 13.0 (11.4-16.0) gm/dL Hct 39.3 (34.0-46.0) % Plt Count 246 (150-450) k/uL Comprehensive Metabolic Panel 06/23/20 Range/Units 05:27 Sodium 139 (137-145) mmol/L Potassium 4.1 (3.5-5.1) mmol/L Chloride 111 H (98-107) mmol/L Carbon Dioxide 24 (22-30) mmol/L BUN 14 (7-17) mg/dL Creatinine 0.70 (0.52-1.04) mg/dL Glucose 88 (74-99) mg/dL Calcium 9.0 (8.4-10.2) mg/dL AST 23 (14-36) U/L ALT 17 (4-34) U/L Alkaline Phosphatase 122 (38-126) U/L Total Protein 5.7 L (6.3-8.2) g/dL Albumin 3.3 L (3.5-5.0) g/dL Intake and Output 06/23/20 06/23/20 06/23/20 06:59 14:59 22:59 Intake Total 120 Balance 120 Intake: Oral 120 Other: Voiding Method Toilet # Voids 2 Weight 53.5 kg 53.5 kg Patient Weight 06/24/20 06:59 Weight 53.5 kg 06/23/20 05:27 06/23/20 05:27
== END 2020-06-23 11:31 | disposition home or self-care (01) ==
LOC: EC 06:49 → 1SOBS 09:36 → INTOOBSV 10:11 → OBSVTOIN 10:11 → 3SCARD 13:49 → UNDODISIN 06-23 11:31
PROVIDERS: ADMIT Internal Medicine Geriatric Medicine; ATTEND Internal Medicine Geriatric Medicine
DX: R51 Headache (principal); R11.0 Nausea; I48.0 Paroxysmal atrial fibrillation; I48.19 Other persistent atrial fibrillation; Z20.828 Contact with and (suspected) exposure to other viral communicable diseases; I25.10 Atherosclerotic heart disease of native coronary artery without angina pectoris; I11.9 Hypertensive heart disease without heart failure; I67.89 Other cerebrovascular disease; I67.2 Cerebral atherosclerosis; E03.9 Hypothyroidism, unspecified; R41.82 Altered mental status, unspecified; G93.41 Metabolic encephalopathy; F41.0 Panic disorder [episodic paroxysmal anxiety]; T45.515A Adverse effect of anticoagulants, initial encounter; I25.2 Old myocardial infarction; G31.9 Degenerative disease of nervous system, unspecified; R79.1 Abnormal coagulation profile; Z95.5 Presence of coronary angioplasty implant and graft; Z86.73 Personal history of transient ischemic attack (TIA), and cerebral infarction without residual deficits; Z79.899 Other long term (current) drug therapy; Z79.890 Hormone replacement therapy; Z79.01 Long term (current) use of anticoagulants; Z88.5 Allergy status to narcotic agent; Z88.8 Allergy status to other drugs, medicaments and biological substances; Z90.710 Acquired absence of both cervix and uterus; R29.6 Repeated falls; Z82.49 Family history of ischemic heart disease and other diseases of the circulatory system; Z83.2 Family history of diseases of the blood and blood-forming organs and certain disorders involving the immune mechanism
CPT/HCPCS: 96361 ×2; 96374; 96375; 99285; 36415; 95816; 97166; 84439; 80053 ×2; 85652 ×2; 84443; 84484; 85025 ×2; 85610 ×2; 85730; 86140; 81003; 71046; 70496; 70450; 70498; 70551; G0378 ×2; U0003; J2060; J2405; Q9967; 96360

== ENCOUNTER → 2021-02-13 | Outpatient (CLI) | payer MEDICARE, BC ==
--- NOTE | 2021-02-13 13:41 | US ---
EXAMINATION TYPE: US venous doppler duplex LE LT DATE OF EXAM: 02/13/2021 1:26 PM COMPARISON: NONE CLINICAL HISTORY: 85-year-old female M79.605 pain in left leg. SIDE PERFORMED: Left TECHNIQUE: The lower extremity deep venous system is examined utilizing real time linear array sonog rodney with graded compression, doppler sonography and color-flow sonography. FINDINGS: VESSELS IMAGED: Common Femoral Vein Deep Femoral Vein Greater Saphenous Vein * Femoral Vein Popliteal Vein Small Saphenous Vein * Proximal Calf Veins (* superficial vessels) Left Leg: Negative for DVT IMPRESSION: No evidence for DVT within the left lower extremity imaged from the groin to the upper calf.
== END ==
LOC: RADUSWWP 12:33
PROVIDERS: ATTEND Nurse Practitioner Gerontology
DX: M79.605 Pain in left leg (principal)

== ENCOUNTER → 2023-03-18 | Outpatient (CLI) | payer MEDICARE ==
--- NOTE | 2023-03-18 15:51 | BD ---
EXAMINATION TYPE: Axial Bone Density DATE OF EXAM: 03/18/2023 CLINICAL HISTORY: 87 years old Female. 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 l-spine surgery 2002 Bone mineral density about the R hip (g/cm2): 0.588 Bone mineral density about the L hip (g/cm2): 0.588 T Score values are as follows: -----R Neck: -2.8 -----L Neck: -3.1 -----R Total: -3.3 -----L Total: -3.3 Z Score values are as follows: -----R Neck: 0.0 -----L Neck: -0.3 -----R Total: -0.6 -----L Total: -0.6 Bone mineral density has: Decreased -26.6% since study of: 10/01/2003 Bone mineral density about the L Wrist (g/cm2): 0.329 T Score values are as follows: -----Dist. R+U: -5.3 -----Prox. R+U: -4.4 -----Radius total: -5.7 Z Score values are as follows: -----Dist. R+U: -1.8 -----Prox. R+U: -1.0 -----Radius total: -2.2 Bone mineral density baseline FRAX%s: The graph provided illustrates a 21.1% chance for a major osteoporotic fx and a 8.6% chance f or the hips probability for fx in 10 years time. IMPRESSION: Osteoporosis (T Score less than -2.5). There is increased fracture risk and therapy is usually indicated based on age. Re-Screen 1-2 years. NOTE: T-SCORE=SD OF THE YOUNG ADULT MEAN.
== END | disposition home or self-care (01) ==
LOC: RADBDWWP 13:50
PROVIDERS: ATTEND Internal Medicine Geriatric Medicine
DX: M81.0 Age-related osteoporosis without current pathological fracture (principal); Z78.0 Asymptomatic menopausal state
CPT/HCPCS: 77080

== ENCOUNTER → 2023-10-30 | Outpatient (CLI) | payer MEDICARE, BC ==
--- NOTE | 2023-10-30 17:32 | CA ---
Transthoracic Echo Report Name: Miguelina Murry Age: 88 Gender: F : 1935 Exam Date: 10/30/2023 13:58 Exam Location: [place] [facility] Ht (in): 61 Wt (lb): 120 Ordering Physician: Deejay Ellis MD Attending/Referring Phys: Concrete Mixer Hillary Lpoez [facility] Procedure CPT: Indications: I35.1 NONRHEUMATIC AORTIC (VALVE) INSUFFICIENCY Cardiac Hx: Technical Quality: Technically difficult study Contrast 1: Total Dose (mL): Contrast 2: Total Dose (mL): MEASUREMENTS (Male / Female) Normal Values 2D ECHO LV Diastolic Diameter PLAX 3.5 cm 4.2 - 5.9 / 3.9 - 5.3 cm LV Systolic Diameter PLAX 2.4 cm IVS Diastolic Thickness 0.9 cm 0.6 - 1.0 / 0.6 - 0.9 cm LVPW Diastolic Thickness 1.0 cm 0.6 - 1.0 / 0.6 - 0.9 cm LV Relative Wall Thickness 0.5 LVOT Diameter 2.0 cm Ascending Aorta Diameter 3.2 cm M-MODE Aortic Root Diameter MM 2.4 cm LA Systolic Diameter MM 4.0 cm LA Ao Ratio MM 1.6 AV Cusp Separation MM 1.8 cm DOPPLER AV Peak Velocity 97.8 cm/s AV Peak Gradient 3.8 mmHg AV Mean Velocity 60.0 cm/s AV Mean Gradient 1.7 mmHg AV Velocity Time Integral 13.9 cm AI Peak Velocity 410.8 cm/s AI Peak Gradient 67.5 mmHg AI Pressure Half Time 396.2 ms LVOT Peak Velocity 92.5 cm/s LVOT Peak Gradient 3.4 mmHg LVOT Velocity Time Integral 15.5 cm LVOT Stroke Volume 50.5 cm??? LVOT Stroke Volume Index 33.2 ml/m??? LVOT Cardiac Index 2760.6 cm???/min???m??? AV Area Cont Eq vti 3.6 cm??? AV Area Cont Eq pk 3.1 cm??? Mitral E Point Velocity 118.7 cm/s MV Deceleration Time 143.2 ms LV E' Lateral Velocity 7.2 cm/s Mitral E to LV E' Lateral Ratio 16.6 LV E' Septal Velocity 6.4 cm/s Mitral E to LV E' Septal Ratio 18.5 TR Peak Velocity 310.5 cm/s TR Peak Gradient 38.6 mmHg Right Atrial Pressure 3.0 mmHg Pulmonary Artery Systolic Pressu 41.6 mmHg Right Ventricular Systolic Press 41.6 mmHg FINDINGS Left Ventricle Mildly increased posterior wall thickness. Small left ventricular cavity. Normal left ventricular systolic function with no obvious regional wall motion abnormalities. Left ventricular ejection fraction is estimated at 55-60%. Right Ventricle Normal right ventricular size. Mild pulmonary hypertension. Right Atrium Mild right atrial dilatation. Left Atrium Mild left atrial dilatation. Mitral Valve Mitral valve thickened. Mitral annular calcification. Mild mitral regurgitation. Aortic Valve Trileaflet aortic valve. Aortic valve sclerosis. Mild aortic regurgitation. Tricuspid Valve Structurally normal tricuspid valve. [id number] tricuspid regurgitation. Pulmonic Valve Pulmonic valve not well visualized. Mild pulmonic regurgitation. Pericardium Moderate pericardial effusion. Aorta Normal size aortic root and proximal ascending aorta. CONCLUSIONS Normal LV function Mild mitral regurgitation Mild aortic regurgitation Previewed by: Dr. Mateo Johnson MD (Electronically Signed) Final Date: 30 October 2023 17:32
== END | disposition home or self-care (01) ==
LOC: RADECHMAIN 13:50
PROVIDERS: ATTEND Internal Medicine Geriatric Medicine
DX: I08.0 Rheumatic disorders of both mitral and aortic valves (principal)
CPT/HCPCS: 93306

== ENCOUNTER → 2024-05-19 | Outpatient (CLI) | payer MEDICARE, BC ==
--- NOTE | 2024-05-20 08:05 | CA ---
Transthoracic Echo Report Name: Miguelina Murry Age: 88 Gender: F : 1935 Exam Date: 05/19/2024 14:53 Exam Location: [facility] Ht (in): 62 Wt (lb): 120 Ordering Physician: Deejay Ellis MD Attending/Referring Phys: Deejay Ellis MD [employer] Machine Tender Carolyn Smith RDCS Procedure CPT: Indications: I48.0 PAROXYSMAL ATRIAL FIBRILLATION Cardiac Hx: Technical Quality: Fair Contrast 1: Total Dose (mL): Contrast 2: Total Dose (mL): MEASUREMENTS (Male / Female) Normal Values 2D ECHO LV Diastolic Diameter PLAX 3.3 cm 4.2 - 5.9 / 3.9 - 5.3 cm LV Systolic Diameter PLAX 2.2 cm IVS Diastolic Thickness 1.4 cm 0.6 - 1.0 / 0.6 - 0.9 cm LVPW Diastolic Thickness 1.4 cm 0.6 - 1.0 / 0.6 - 0.9 cm LV Relative Wall Thickness 0.9 RV Internal Dim ED PLAX 3.1 cm LA Volume 106.9 cm??? 18 - 58 / 22 - 52 cm??? LA Volume Index 69.1 cm???/m??? 16 - 28 cm???/m??? M-MODE Aortic Root Diameter MM 2.6 cm LA Systolic Diameter MM 4.3 cm LA Ao Ratio MM 1.6 AV Cusp Separation MM 1.9 cm DOPPLER AV Peak Velocity 123.4 cm/s AV Peak Gradient 6.1 mmHg AV Mean Velocity 77.3 cm/s AV Mean Gradient 2.7 mmHg AV Velocity Time Integral 19.1 cm AI Peak Velocity 492.5 cm/s AI Peak Gradient 97.0 mmHg AI Pressure Half Time 740.5 ms LVOT Peak Velocity 91.1 cm/s LVOT Peak Gradient 3.3 mmHg LVOT Velocity Time Integral 16.1 cm MV Area PHT 6.2 cm??? Mitral E Point Velocity 120.1 cm/s Mitral A Point Velocity 0.5 cm/s Mitral E to A Ratio 220.0 MV Deceleration Time 122.3 ms MV E' Velocity 7.9 cm/s Mitral E to MV E' Ratio 15.3 TR Peak Velocity 338.4 cm/s TR Peak Gradient 45.8 mmHg Right Ventricular Systolic Press 55.3 mmHg FINDINGS Left Ventricle Moderately increased left ventricular wall thickness. Left ventricular cavity size normal. Normal left ventricular systolic function with no obvious regional wall motion abnormalities. Left ventricular ejection fraction is estimated at 55-60 %. Grade 2 diastolic dysfunction. Right Ventricle Normal right ventricular size and function. Moderate to severe pulmonary hypertension. Right Atrium Mild right atrial dilatation. Left Atrium Severely increased left atrial volume. Moderately increased left atrial area. Mitral Valve Structurally normal mitral valve. Mitral valve thickened. Moderate mitral annular calcification. Moderate mitral regurgitation. Aortic Valve Trileaflet aortic valve. No aortic stenosis. Moderate aortic regurgitation. Tricuspid Valve Structurally normal tricuspid valve. Severe tricuspid regurgitation. Pulmonic Valve Structurally normal pulmonic valve. Mild pulmonic regurgitation. Pericardium Moderate pericardial effusion. Aorta Normal size aortic root and proximal ascending aorta. CONCLUSIONS Normal biventricular systolic function Severe biatrial enlargement Moderate mitral regurgitation Severe tricuspid regurgitation Moderate to severe pulmonary hypertension Moderate circumferential pericardial effusion was identified Previewed by: Dr. Tacos Foreman MD (Electronically Signed) Final Date: 20 May 2024 08:04
== END | disposition home or self-care (01) ==
LOC: RADECHMAIN 14:52
PROVIDERS: ATTEND Internal Medicine Geriatric Medicine
DX: I48.0 Paroxysmal atrial fibrillation (principal); I08.1 Rheumatic disorders of both mitral and tricuspid valves; I27.20 Pulmonary hypertension, unspecified; I31.39 Other pericardial effusion (noninflammatory)
CPT/HCPCS: 93306